=== PATIENT | female | born 1930 | race Caucasian/White ===

== ENCOUNTER 2018-08-06 07:30 | Inpatient (IN) | payer MEDICARE, BC ==
--- NOTE | 2018-08-06 08:24 | EKG REPORT ---
SEVERITY:- ABNORMAL ECG - SINUS RHYTHM LEFT BUNDLE BRANCH BLOCK : Confirmed by: Олег Whalen MD 06-Aug-2018 08:23:39
[2018-08-06 08:51] LABS: ALANINE AMINOTRANSFERASE 32 U/L (9-52); ALBUMIN 3.1 g/dL (3.5-5.0); ALKALINE PHOSPHATASE 141 U/L (38-126); ANION GAP 9 (5-19); ASPARTATE AMINO TRANSFERASE 29 U/L (14-36); BILIRUBIN,DIRECT 0.2 mg/dL (0.0-0.4); BILIRUBIN,TOTAL 0.6 mg/dL (0.2-1.3); BLOOD UREA NITROGEN 12 mg/dL (7-20); CALCIUM 8.5 mg/dL (8.4-10.2); CARBON DIOXIDE 32 mmol/L (22-30); CHLORIDE 96 mmol/L (98-107); GLUCOSE 93 mg/dL (75-110); POTASSIUM 4.4 mmol/L (3.6-5.0); SODIUM 136.8 mmol/L (137-145); TOTAL PROTEIN 5.2 g/dL (6.3-8.2)
[2018-08-06 08:52] LABS: CREATINE KINASE < 20 U/L (30-135)
[2018-08-06 09:02] LABS: CREATINE KINASE MB 0.77 ng/mL (<4.55)
[2018-08-06 09:04] LABS: TROPONIN I 0.092 ng/mL
--- NOTE | 2018-08-06 09:06 | RADIOLOGY REPORT (SQ) ---
EXAM DESCRIPTION: CHEST SINGLE VIEW COMPLETED DATE/TIME: 08/06/2018 8:20 am REASON FOR STUDY: Dyspnea COMPARISON: 2006 EXAM PARAMETERS: NUMBER OF VIEWS: One view. TECHNIQUE: Single frontal radiographic view of the chest acquired. RADIATION DOSE: NA LIMITATIONS: Motion. AP portable. FINDINGS: LUNGS AND PLEURA: PleurX catheter overlying right lower lung. Partial left pneumonectomy. Bilateral airspace disease, right greater than left. Small right pleural effusion. MEDIASTINUM AND HILAR STRUCTURES: No masses. Contour normal. HEART AND VASCULAR STRUCTURES: Cardiomegaly. BONES: No acute findings. HARDWARE: None in the chest. OTHER: No other significant finding. IMPRESSION: Asymmetric edema or pneumonia. PleurX catheter right lung. No pneumothorax. TECHNICAL DOCUMENTATION: JOB ID: [id number] [employer]- All Rights Reserved Reading location - IP/workstation name: [email or web address]
[2018-08-06 09:21] LABS: HEMATOCRIT 24.1 % (36.0-47.0); HEMOGLOBIN 8.4 g/dL (12.0-15.5); MEAN CORPUSCULAR HEMOGLOBIN 31.1 pg (27.0-33.4); MEAN CORPUSCULAR HGB CONC 34.9 g/dL (32.0-36.0); MEAN CORPUSCULAR VOLUME 89 fl (80-97); RED BLOOD COUNT 2.71 10^6/uL (3.72-5.28); RED CELL DISTRIBUTION WIDTH 14.5 % (11.5-14.0); WHITE BLOOD COUNT 10.6 10^3/uL (4.0-10.5)
[2018-08-06 09:41] LABS: ABSOLUTE LYMPHOCYTES# (MANUAL) 1.1 10^3/uL (0.5-4.7); ABSOLUTE MONOCYTES # (MANUAL) 0.5 10^3/uL (0.1-1.4); BAND NEUTROPHILS % (MANUAL) 6 % (3-5); BASOPHILS % (MANUAL) 0 % (0-2); EOSINOPHILS % (MANUAL) 0 % (0-6); LYMPHOCYTES % (MANUAL) 10 % (13-45); METAMYELOCYTES % (MANUAL) 1 % (0); MONOCYTES % (MANUAL) 5 % (3-13); SEGMENTED NEUTROPHILS % (MAN) 78 % (42-78); TOTAL CELLS COUNTED 100
[2018-08-06 09:46] LABS: ANISOCYTOSIS SLIGHT; OVALOCYTES SLIGHT; PLATELET COMMENT DECREASED; POIKILOCYTOSIS SLIGHT; TOXIC GRANULATION 2+
[2018-08-06 09:48] LABS: PLATELET COUNT 18 10^3/uL (150-450)
[2018-08-06 12:18] LABS: APPEARANCE,URINE SLIGHTLY-CLOUDY; BILIRUBIN,URINE NEGATIVE (NEGATIVE); COLOR,URINE YELLOW; GLUCOSE, URINE NEGATIVE (NEGATIVE); KETONES,URINE NEGATIVE (NEGATIVE); LEUKOCYTE ESTERASE,URINE NEGATIVE (NEGATIVE); NITRITE,URINE POSITIVE (NEGATIVE); PROTEIN,URINE 30 mg/dL (NEGATIVE); URINE SPECIFIC GRAVITY 1.016
[2018-08-06] MEDS ORDERED: METHYLPREDNISOLONE INJ 125 MG/2 ML SDV IV ONE (12:19)
[2018-08-06] MEDS ORDERED: LEVOFLOXACIN 750 MG/D5W RTU 750 MG/150 ML RTUPB IV ONE (12:19)
--- NOTE | 2018-08-06 13:31 | PDOC H&P ---
History of Present Illness Admission Date/PCP: MEL GRULLON MD History of Present Illness: DAVID HO is a 88 year old female with PMHx of breast cancer right mastectomy with 3 lymph nodes removed in 1996, history of lung cancer 2009 status post left upper lobe resection, other cancers 2017, CAD status post 1 stent placement, CHF ejection fraction 25%, current pleural effusion, who was recently hospitalized at [facility] for shortness of breath of several month and was found to have recurrent pleural effusion due to metastatic cancer she received Pleurx placement in the right posterior lung and was subsequently discharged to [facility] for rehab week ago. Patient is stating she has been having worsening shortness of breath associated with productive cough for the last week. Her Pleurx still draining but she does not remember how much. She denies any chest pain, nausea, vomiting, diarrhea, constipation, or any urinary symptoms. In ED she was found to have SPO2 of 75% BNP 28,100 UA positive for nitrites and WBC of 10.6 with ANC of 9.0 up from WBC of 0.5, 5 days ago. CXR in ED showed appearance possible pneumonia. Start on Levaquin and steroids on hospital was consulted for admission. Past Medical History Cardiac Medical History: Reports: Hypertension Past Surgical History Past Surgical History: Reports: Mastectomy - Right breast Social History Smoking Status: Unknown if Ever Smoked Family History Family History: None Parental Family History Reviewed: Yes Children Family History Reviewed: Yes Sibling(s) Family History Reviewed.: Yes Medication/Allergy Home Medications: Acetaminophen [Tylenol Extra Strength 500 mg Tablet] 1,000 mg PO Q8HP PRN 08/06 Albuterol Sulfate [Proair HFA Inhalation Aerosol 8.5 gm MDI] 2 puff IH Q4HP PRN 08/06/18 Aspirin [Aspirin 81 mg Chewable Tablet] 81 mg PO QAM 08/06/18 Cholecalciferol (Vitamin D3) [Vitamin D3 1000 Unit Tablet] 1,000 mg PO QAM 08/06/18 Cyanocobalamin (Vitamin B-12) [Vitamin B-12 1000 mcg Tablet] 1,000 mcg PO QAM 08/06/18 Docusate Sodium [Colace 100 mg Capsule] 100 mg PO HSP PRN 08/06/18 Furosemide [Lasix 40 mg Tablet] 40 mg PO QAM 08/06/18 Isosorbide Mononitrate [Imdur 60 mg Tablet.er] 60 mg PO QAM 08/06/18 Lansoprazole [Prevacid] 30 mg PO QAM@0630 08/06/18 Lisinopril [Zestril] 10 mg PO QAM 08/06/18 Metoprolol Tartrate [Lopressor 25 mg Tablet] 25 mg PO Q12 08/06/18 Polyethylene Glycol 3350 [Miralax Powder 17 gm/Packet] 17 gm PO QAM 08/06/18 Vit C/Vit E AC/Lut/Copper/Zinc [Preservision Lutein Softgel] 1 cap PO QAM 08/06/18 Allergies/Adverse Reactions: meperidine HCl [From Demerol] Allergy (Verified 07/16/14 17:13) Penicillins Allergy (Verified 07/16/14 17:13) Review of Systems Review of Systems: As per HPI. Physical Exam Vital Signs: Temp Pulse Resp BP Pulse Ox 97.9 F 97 29 H 135/58 H 95 08/06/18 07:50 08/06/18 07:50 08/06/18 13:01 08/06/18 13:00 08/06/18 13:01 General appearance: PRESENT: no acute distress Head exam: PRESENT: atraumatic, normocephalic Respiratory exam: PRESENT: clear to auscultation rodrigo. ABSENT: rales, rhonchi, wheezes Cardiovascular exam: PRESENT: RRR. ABSENT: diastolic murmur, rubs, systolic murmur GI/Abdominal exam: PRESENT: normal bowel sounds, soft. ABSENT: distended, guarding, mass, organolmegaly, rebound, tenderness Extremities exam: PRESENT: full ROM. ABSENT: calf tenderness, clubbing, pedal edema Neurological exam: PRESENT: alert, awake, oriented to person, oriented to place, oriented to time, oriented to situation, CN II-XII grossly intact. ABSENT: motor sensory deficit Results Laboratory Results: 08/06/18 08:40 08/06/18 07:55 08/06/18 08/06/18 08/06/18 07:55 07:55 08:40 WBC Cancelled 10.6 H RBC Cancelled 2.71 L Hgb Cancelled 8.4 L Hct Cancelled 24.1 L MCV Cancelled 89 MCH Cancelled 31.1 MCHC Cancelled 34.9 RDW Cancelled 14.5 H Plt Count Cancelled 18 L* Seg Neutrophils % Cancelled Not Reportable Lymphocytes % Cancelled Not Reportable Monocytes % Cancelled Not Reportable Eosinophils % Cancelled Not Reportable Basophils % Cancelled Not Reportable Absolute Neutrophils Cancelled Not Reportable Absolute Lymphocytes Cancelled Not Reportable Absolute Monocytes Cancelled Not Reportable Absolute Eosinophils Cancelled Not Reportable Absolute Basophils Cancelled Not Reportable Sodium 136.8 L Potassium 4.4 Chloride 96 L Carbon Dioxide 32 H Anion Gap 9 BUN 12 Creatinine 0.92 Est GFR ( Amer) > 60 Est GFR (Non-Af Amer) 58 L Glucose 93 Lactic Acid Calcium 8.5 Total Bilirubin 0.6 AST 29 ALT 32 Alkaline Phosphatase 141 H Total Protein 5.2 L Albumin 3.1 L Urine Color Urine Appearance Urine pH Ur Specific [place] Urine Protein Urine Glucose (UA) Urine Ketones Urine Blood Urine Nitrite Ur Leukocyte Esterase Urine WBC (Auto) 08/06/18 08/06/18 09:05 11:50 WBC RBC Hgb Hct MCV MCH MCHC RDW Plt Count Seg Neutrophils % Lymphocytes % Monocytes % Eosinophils % Basophils % Absolute Neutrophils Absolute Lymphocytes Absolute Monocytes Absolute Eosinophils Absolute Basophils Sodium Potassium Chloride Carbon Dioxide Anion Gap BUN Creatinine Est GFR ( Amer) Est GFR (Non-Af Amer) Glucose Lactic Acid 0.9 Calcium Total Bilirubin AST ALT Alkaline Phosphatase Total Protein Albumin Urine Color YELLOW Urine Appearance SLIGHTLY-CLOUDY Urine pH 9.0 Ur Specific [place] 1.016 Urine Protein 30 H Urine Glucose (UA) NEGATIVE Urine Ketones NEGATIVE Urine Blood NEGATIVE Urine Nitrite POSITIVE H Ur Leukocyte Esterase NEGATIVE Urine WBC (Auto) 8 08/06/18 08/06/18 08/06/18 07:55 07:55 07:55 Creatine Kinase < 20 L CK-MB (CK-2) 0.77 Troponin I 0.092 NT-Pro-B Natriuret Pep [id number] H Impressions: Chest X-Ray 08/06/18 07:52 IMPRESSION: Asymmetric edema or pneumonia. PleurX catheter right lung. No pneumothorax. Assessment & Plan - Diagnosis (1) Pneumonia Is this a current diagnosis for this admission?: Yes Plan: Healthcare associated/hospital-acquired pneumonia as patient has recent history of hospitalization at [facility] Patient allergic to penicillins. Start on levofloxacin and vancomycin. Sputum culture, blood culture. (2) Recurrent pleural effusion on right Is this a current diagnosis for this admission?: No Plan: Due to metastatic lung disease. Pleurx in place. Will obtain pleural fluid culture. (3) CAD (coronary artery disease) Is this a current diagnosis for this admission?: Yes Plan: Continue statins, beta-blockers, aspirin, JEFF. Outpatient cardiology follow-up. (4) CHF (congestive heart failure) Is this a current diagnosis for this admission?: No Plan: Systolic heart failure. Ejection fraction 25%. No echo available. Monitor volume status, continue Lasix. Beta-blockers and JEFF. Cardiac diet. (5) COPD (chronic obstructive pulmonary disease) Is this a current diagnosis for this admission?: No Plan: IV steroids, duo nebs, long-acting bronchodilators, BiPAP as needed. Supplemental oxygen. (6) Hypertension Is this a current diagnosis for this admission?: No Plan: Normotensive. Restart home meds. Adjust dosage as needed. Outpatient PCP fo llow-up. (7) Back pain Is this a current diagnosis for this admission?: No Plan: History of lumbar spine laminectomy. Restart home meds. PT. Patient pain management and PCP follow-up. (8) Thrombocytopenia Is this a current diagnosis for this admission?: No Plan: Likely secondary to lying multiple metastatic disease. Monitor for any signs of bleeding. Daily CBC. 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 coli. Receiving empiric antibiotics for underlying pneumonia. Follow-up urine culture.
[2018-08-06] MEDS ORDERED: ACETAMINOPHEN 325 MG TABLET PO PRN (13:48)
[2018-08-06] MEDS: IPRATROPIUM/ALBUTEROL 0.5-2.5 MG/3 ML AMPUL NEB SCH ×2 (15:45→19:54)
[2018-08-06] MEDS ORDERED: VANCOMYCIN HCL 1,000 MG in DEXTROSE 5%-WATER 250 ML IV NR (17:15)
[2018-08-06] MEDS ORDERED: HYDRALAZINE HCL INJ/PF 20 MG/1 ML SDV IV PRN (17:48)
[2018-08-06] MEDS: LANSOPRAZOLE 30 MG TAB.RAP.DR PO SCH (18:06)
[2018-08-06] MEDS ORDERED: VANCOMYCIN HCL INJ 1000 MG VIAL IV PRN (18:31)
[2018-08-06] MEDS ORDERED: VANCOMYCIN HCL 1,500 MG in DEXTROSE 5%-WATER 250 ML IV ONE ×2 (19:00→22:00)
[2018-08-06] MEDS ORDERED: VANCOMYCIN HCL INJ 1000 MG VIAL ONE (20:20)
[2018-08-06] MEDS ORDERED: LEVALBUTEROL HCL NEB 0.63 MG/3 ML AMPUL NEB ONE (21:00)
[2018-08-06 21:16] LABS: A TYPE INFLUENZA AG NEGATIVE (NEGATIVE); B INFLUENZA AG NEGATIVE (NEGATIVE)
--- NOTE | 2018-08-06 22:01 | EKG REPORT ---
SEVERITY:- ABNORMAL ECG - SINUS RHYTHM ATRIAL PREMATURE COMPLEX INCOMPLETE LBBB OLD ANTERIOR GA : Confirmed by: Олег Whalen MD 06-Aug-2018 22:00:23
[2018-08-06] MEDS: METHYLPREDNISOLONE INJ 40 MG/1 ML SDV IV SCH (22:24)
[2018-08-06] MEDS: GUAIFENESIN 600 MG TABLET.SA PO SCH (22:24)
[2018-08-06] MEDS: METOPROLOL TARTRATE 25 MG TABLET PO SCH (22:24)
[2018-08-07 05:29] LABS: HEMATOCRIT 23.9 % (36.0-47.0); HEMOGLOBIN 8.2 g/dL (12.0-15.5); MEAN CORPUSCULAR HEMOGLOBIN 30.8 pg (27.0-33.4); MEAN CORPUSCULAR HGB CONC 34.5 g/dL (32.0-36.0); MEAN CORPUSCULAR VOLUME 90 fl (80-97); RED BLOOD COUNT 2.67 10^6/uL (3.72-5.28); RED CELL DISTRIBUTION WIDTH 14.7 % (11.5-14.0); WHITE BLOOD COUNT 12.5 10^3/uL (4.0-10.5)
[2018-08-07 05:55] LABS: ABSOLUTE LYMPHOCYTES# (MANUAL) 0.4 10^3/uL (0.5-4.7); ABSOLUTE MONOCYTES # (MANUAL) 0.6 10^3/uL (0.1-1.4); ABSOLUTE NEUTROPHILS# (MANUAL) 11.5 10^3/uL (1.7-8.2); BAND NEUTROPHILS % (MANUAL) 2 % (3-5); BASOPHILS % (MANUAL) 0 % (0-2); EOSINOPHILS % (MANUAL) 0 % (0-6); LYMPHOCYTES % (MANUAL) 3 % (13-45); MONOCYTES % (MANUAL) 5 % (3-13); SEGMENTED NEUTROPHILS % (MAN) 90 % (42-78); TOTAL CELLS COUNTED 100
[2018-08-07 05:56] LABS: POIKILOCYTOSIS SLIGHT
[2018-08-07 05:57] LABS: OVALOCYTES SLIGHT; PLATELET COMMENT DECREASED
[2018-08-07 06:01] LABS: PLATELET COUNT 19 10^3/uL (150-450)
[2018-08-07] MEDS: LANSOPRAZOLE 30 MG TAB.RAP.DR PO SCH ×2 (06:06→17:30)
[2018-08-07] MEDS: METHYLPREDNISOLONE INJ 40 MG/1 ML SDV IV SCH ×3 (06:06→21:05)
[2018-08-07] MEDS ORDERED: VIT C PO SCH (08:00)
[2018-08-07] MEDS ORDERED: LUT PO SCH (08:00)
[2018-08-07] MEDS ORDERED: VIT E AC PO SCH (08:00)
[2018-08-07] MEDS ORDERED: ZINC PO SCH (08:00)
[2018-08-07] MEDS ORDERED: CHOLECALCIFEROL (D3) 1,000 UNIT TABLET PO SCH (08:00)
[2018-08-07] MEDS ORDERED: COPPER PO SCH (08:00)
[2018-08-07] MEDS ORDERED: [UNRECOGNIZED DRUG - OTHER] PO SCH (08:00)
[2018-08-07] MEDS: LEVALBUTEROL HCL NEB 0.63 MG/3 ML AMPUL NEB SCH ×3 (08:11→20:11)
[2018-08-07] MEDS: ASPIRIN 81 MG TABLET, CHEWABLE PO SCH (08:12)
[2018-08-07] MEDS: FUROSEMIDE 40 MG TABLET PO SCH (08:12)
[2018-08-07] MEDS: LISINOPRIL 10 MG TABLET PO SCH (08:13)
[2018-08-07] MEDS: POLYETHYLENE GLYCOL 3350 POWDER 17 GM/1 PACKET PO SCH (08:13)
[2018-08-07] MEDS: ISOSORBIDE MONONITRATE 60 MG TAB.ER.24H PO SCH (08:16)
[2018-08-07] MEDS: CYANOCOBALAMIN (VITAMIN B-12) 1,000 MCG TABLET PO SCH (08:16)
[2018-08-07] MEDS ORDERED: VANCOMYCIN HCL 0 MG in DEXTROSE 5%-WATER 250 ML IV NR (09:00)
[2018-08-07] MEDS ORDERED: BENZOCAINE/MENTHOL SORE THROAT LOZENGE BUCCAL PRN (09:17)
[2018-08-07] MEDS ORDERED: ENOXAPARIN SODIUM INJ 40 MG/0.4 ML DISP.SYRIN SUBCUT SCH (10:00)
[2018-08-07] MEDS: TIOTROPIUM BROMIDE DPI 5 CAP/KIT (18 MCG/CAP) IH SCH (10:27)
[2018-08-07] MEDS: GUAIFENESIN 600 MG TABLET.SA PO SCH ×2 (10:27→21:06)
[2018-08-07] MEDS: METOPROLOL TARTRATE 25 MG TABLET PO SCH ×2 (10:27→21:06)
[2018-08-07] MEDS: LEVOFLOXACIN 500 MG/D5W RTU 500 MG/100 ML RTUPB IV SCH (11:02)
--- NOTE | 2018-08-07 11:45 | PDOC PROGRESS REPORT ---
Subjective Progress Note for:: 08/07/18 Subjective:: DAVID HO is a 88 year old female with PMHx of breast cancer right mastectomy with 3 lymph nodes removed in 1996, history of lung cancer 2009 status post left upper lobe resection, other cancers 2017, CAD status post 1 stent placement, CHF ejection fraction 25%, current pleural effusion, who was recently hospitalized at [facility] for shortness of breath of several month and was found to have recurrent pleural effusion due to metastatic cancer she received Pleurx placement in the right posterior lung and was subsequently discharged to [facility] for rehab week ago. Patient is stating she has been having worsening shortness of breath associated with productive cough for the last week. Her Pleurx still draining but she does not remember how much. She denies any chest pain, nausea, vomiting, diarrhea, constipation, or any urinary symptoms. In ED she was found to have SPO2 of 75% BNP 28,100 UA positive for nitrites and WBC of 10.6 with ANC of 9.0 up from WBC of 0.5, 5 days ago. CXR in ED showed appearance possible pneumonia. Start on Levaquin and steroids on hospital was consulted for admission. 08/07/2018. No acute events overnight. Reason For Visit: PNEUMONIA Physical Exam Vital Signs: Temp Pulse Resp BP Pulse Ox 97.4 F 83 16 113/48 L 96 08/07/18 07:50 08/07/18 08:11 08/07/18 08:11 08/07/18 07:50 08/07/18 08:11 Intake & Output 08/06/18 08/07/18 08/08/18 06:59 06:59 06:59 Intake Total 666 Output Total 300 Balance 366 Weight 81.7 kg General appearance: PRESENT: no acute distress, well-developed, well-nourished Head exam: PRESENT: atraumatic, normocephalic Respiratory exam: PRESENT: decreased breath sounds - RLL, symmetrical. ABSENT: rales, rhonchi, wheezes Cardiovascular exam: PRESENT: RRR. ABSENT: diastolic murmur, rubs, systolic murmur Neurological exam: PRESENT: alert, awake, oriented to person, oriented to place, oriented to time, oriented to situation, CN II-XII grossly intact. ABSENT: motor sensory deficit Results Laboratory Results: 08/07/18 05:10 08/06/18 07:55 08/06/18 08/07/18 11:50 05:10 WBC 12.5 H RBC 2.67 L Hgb 8.2 L Hct 23.9 L MCV 90 MCH 30.8 MCHC 34.5 RDW 14.7 H Plt Count 19 L* Seg Neutrophils % Not Reportable Lymphocytes % Not Reportable Monocytes % Not Reportable Eosinophils % Not Reportable Basophils % Not Reportable Absolute Neutrophils Not Reportable Absolute Lymphocytes Not Reportable Absolute Monocytes Not Reportable Absolute Eosinophils Not Reportable Absolute Basophils Not Reportable Urine Color YELLOW Urine Appearance SLIGHTLY-CLOUDY Urine pH 9.0 Ur Specific [place] 1.016 Urine Protein 30 H Urine Glucose (UA) NEGATIVE Urine Ketones NEGATIVE Urine Blood NEGATIVE Urine Nitrite POSITIVE H Ur Leukocyte Esterase NEGATIVE Urine WBC (Auto) 8 08/06/18 08/06/18 08/06/18 07:55 07:55 07:55 Creatine Kinase < 20 L CK-MB (CK-2) 0.77 Troponin I 0.092 NT-Pro-B Natriuret Pep [id number] H Impressions: Chest X-Ray 08/06/18 07:52 IMPRESSION: Asymmetric edema or pneumonia. PleurX catheter right lung. No pneumothorax. Assessment & Plan - Diagnosis (1) Pneumonia Is this a current diagnosis for this admission?: Yes Plan: Healthcare associated/hospital-acquired pneumonia as patient has recent history of hospitalization at [facility] Patient allergic to penicillins. Day 2 levofloxacin and vancomycin. Sputum culture, blood culture prelim no growth (2) Recurrent pleural effusion on right Is this a current diagnosis for this admission?: No Plan: Due to metastatic lung disease. Pleurx in place. Will obtain pleural fluid culture. Drain twice a week to gravity. Pleurx Care (3) UTI (urinary tract infection) Is this a current diagnosis for this admission?: Yes Plan: Likely E. coli. Receiving empiric antibiotics for underlying pneumonia. Cx positive for GNR. Pending susceptibility (4) CAD (coronary artery disease) Is this a current diagnosis for this admission?: Yes Plan: Continue statins, beta-blockers, aspirin, JEFF. Outpatient cardiology follow-up. (5) CHF (congestive heart failure) Is this a current diagnosis for this admission?: No Plan: Systolic heart failure. Ejection fraction 25%. No echo available. Monitor volume status, continue Lasix. Beta-blockers and JEFF. Cardiac diet. (6) COPD (chronic obstructive pulmonary disease) Is this a current diagnosis for this admission?: No Plan: IV steroids, duo nebs, long-acting bronchodilators, BiPAP as needed. Supplemental oxygen. (7) Hypertension Is this a current diagnosis for this admission?: No Plan: Normotensive. Restart home meds. Adjust dosage as needed. Outpatient PCP follow-up. (8) Back pain Is this a current diagnosis for this admission?: No Plan: History of lumbar spine laminectomy. Restart home meds. PT. Patient pain management and PCP follow-up. (9) Thrombocytopenia Is this a current diagnosis for this admission?: No Plan: Likely secondary to lying multiple metastatic disease. Monitor for any signs of bleeding. Daily CBC. (10) Squamous cell carcinoma of right lung Is this a current diagnosis for this admission?: No Plan: H/O consulted (11) History of right breast cancer Is this a current diagnosis for this admission?: No Plan: H/O consulted (12) History of bladder cancer Is this a current diagnosis for this admission?: No Plan: H/O consulted
[2018-08-07] MEDS: VANCOMYCIN HCL 750 MG in DEXTROSE 5%-WATER 250 ML IV SCH (17:30)
[2018-08-08] MEDS: VANCOMYCIN HCL 750 MG in DEXTROSE 5%-WATER 250 ML IV SCH ×2 (06:06→17:14)
[2018-08-08] MEDS: METHYLPREDNISOLONE INJ 40 MG/1 ML SDV IV SCH ×3 (06:06→22:32)
[2018-08-08] MEDS: LANSOPRAZOLE 30 MG TAB.RAP.DR PO SCH ×2 (06:07→17:14)
[2018-08-08] MEDS: LEVALBUTEROL HCL NEB 0.63 MG/3 ML AMPUL NEB SCH ×3 (08:19→20:24)
[2018-08-08 08:25] LABS: HEMATOCRIT 26.1 % (36.0-47.0); HEMOGLOBIN 8.9 g/dL (12.0-15.5); MEAN CORPUSCULAR HEMOGLOBIN 30.1 pg (27.0-33.4); MEAN CORPUSCULAR HGB CONC 33.9 g/dL (32.0-36.0); MEAN CORPUSCULAR VOLUME 89 fl (80-97); RED BLOOD COUNT 2.94 10^6/uL (3.72-5.28); RED CELL DISTRIBUTION WIDTH 14.6 % (11.5-14.0)
--- NOTE | 2018-08-08 08:45 | PDOC CONSULTATION ---
Consultation Consult Date: 08/08/18 Attending physician:: ABDIEL CASTLE Consult reason:: Extensive stage small cell lung cancer History of Present Illness Admission Date/PCP: 08/06/18 13:05 MEL GRULLON MD Patient complains of: Shortness of breath History of Present Illness: DAVID HO is a 88 year old female with known history of extensive stage small cell lung cancer. She previously had history of 2 other cancers. She had breast cancer in 1997, a few years after that she had left non-small cell lung cancer, status post lobectomy. Recently she had the emergence of a right pleural effusion, ultimately after extensive workup she was diagnosed with exte nsive stage small cell lung cancer. She received 3 cycles of chemotherapy thus far the last cycle was about 2 weeks ago. Unfortunately with each cycle she has been getting weaker and weaker, and over the last 2 weeks has been bedridden. She had a long discussion with her family, does not feel like she could tolerate further chemotherapy. So they were interested in discussion about hospice. We had a long discussion about that, we spent greater than 70 minutes in discussion. Past Medical History Cardiac Medical History: Reports: Hypertension Malignancy Medical History: Reports: Breast Cancer, Lung Cancer - Currently with extensive stage small cell lung cancer Psychiatric Medical History: Denies: Depression Past Surgical History Past Surgical History: Reports: Mastectomy - Right breast, Other - Left lung surgery, Pleurx catheter placement, thoracentesis Social History Information Source: Patient Smoking Status: Former Smoker Cigarettes Packs Per Day: 1 Number of Years Smokin Frequency of Alcohol Use: None Hx Recreational Drug Use: No Drugs: None Hx Prescription Drug Abuse: No - Advance Directive Resuscitation Status: Do Not Resuscitate Family History Family History: None Parental Family History Reviewed: Yes Children Family History Reviewed: Yes Sibling(s) Family History Reviewed.: Yes Medication/Allergy Home Medications: Acetaminophen [Tylenol Extra Strength 500 mg Tablet] 1,000 mg PO Q8HP PRN 08/06/18 Albuterol Sulfate [Proair HFA Inhalation Aerosol 8.5 gm MDI] 2 puff IH Q4HP PRN 08/06/18 Aspirin [Aspirin 81 mg Chewable Tablet] 81 mg PO QAM 08/06/18 Cholecalciferol (Vitamin D3) [Vitamin D3 1000 Unit Tablet] 1,000 mg PO QAM 08/06/18 Cyanocobalamin (Vitamin B-12) [Vitamin B-12 1000 mcg Tablet] 1,000 mcg PO QAM 08/06/18 Docusate Sodium [Colace 100 mg Capsule] 100 mg PO HSP PRN 08/06/18 Furosemide [Lasix 40 mg Tablet] 40 mg PO QAM 08/06/18 Isosorbide Mononitrate [Imdur 60 mg Tablet.er] 60 mg PO QAM 08/06/18 Lansoprazole [Prevacid] 30 mg PO QAM@0630 08/06/18 Lisinopril [Zestril] 10 mg PO QAM 08/06/18 Metoprolol Tartrate [Lopressor 25 mg Tablet] 25 mg PO Q12 08/06/18 Polyethylene Glycol 3350 [Miralax Powder 17 gm/Packet] 17 gm PO QAM 08/06/18 Vit C/Vit E AC/Lut/Copper/Zinc [Preservision Lutein Softgel] 1 cap PO QA 08/06/18 Allergies/Adverse Reactions: meperidine HCl [From Demerol] Allergy (Verified 07/16/14 17:13) Penicillins Allergy (Verified 07/16/14 17:13) Review of Systems Constitutional: ABSENT: chills, fever(s), headache(s), weight gain, weight loss Eyes: ABSENT: visual disturbances Ears: ABSENT: hearing changes Cardiovascular: ABSENT: chest pain, dyspnea on exertion, edema, orthropnea, palpitations Respiratory: ABSENT: cough, hemoptysis Gastrointestinal: ABSENT: abdominal pain, constipation, diarrhea, hematemesis, hematochezia, nausea, vomiting Genitourinary: ABSENT: dysuria, hematuria Musculoskeletal: ABSENT: joint swelling Integumentary: ABSENT: rash, wounds Neurological: ABSENT: abnormal gait, abnormal speech, confusion, dizziness, focal weakness, syncope Psychiatric: ABSENT: anxiety, depression, homidical ideation, suicidal ideation Endocrine: ABSENT: cold intolerance, heat intolerance, polydipsia, polyuria Hematologic/Lymphatic: ABSENT: easy bleeding, easy bruising Physical Exam Vital Signs: Temp Pulse Resp BP Pulse Ox 97.9 F 72 16 115/56 L 94 08/08/18 08:00 08/08/18 08:19 08/08/18 08:19 08/08/18 08:00 08/08/18 08:19 Intake & Output 08/07/18 08/08/18 08/09/18 06:59 06:59 06:59 Intake Total 666 1190 250 Output Total 300 500 Balance 366 690 250 Weight 81.7 kg General appearance: PRESENT: no acute distress, well-developed, well-nourished Head exam: PRESENT: atraumatic, normocephalic Eye exam: PRESENT: conjunctiva pink, EOMI, PERRLA. ABSENT: scleral icterus Ear exam: PRESENT: normal external ear exam Mouth exam: PRESENT: moist, tongue midline Neck exam: ABSENT: carotid bruit, JVD, lymphadenopathy, thyromegaly Respiratory exam: PRESENT: clear to auscultation rodrigo. ABSENT: rales, rhonchi, wheezes Cardiovascular exam: PRESENT: RRR. ABSENT: diastolic murmur, rubs, systolic murmur Pulses: PRESENT: normal dorsalis pedis pul Vascular exam: PRESENT: normal capillary refill GI/Abdominal exam: PRESENT: normal bowel sounds, soft. ABSENT: distended, guarding, mass, organolmegaly, rebound, tenderness Rectal exam: PRESENT: deferred Extremities exam: PRESENT: full ROM. ABSENT: calf tenderness, clubbing, pedal edema Neurological exam: PRESENT: alert, awake, oriented to person, oriented to place, oriented to time, oriented to situation, CN II-XII grossly intact. ABSENT: motor sensory deficit Psychiatric exam: PRESENT: appropriate affect, normal mood. ABSENT: homicidal ideation, suicidal ideation Skin exam: PRESENT: dry, intact, warm. ABSENT: cyanosis, rash Results Laboratory Results: 08/06/18 07:55 08/06/18 08/06/18 08/06/18 07:55 07:55 07:55 Creatine Kinase < 20 L CK-MB (CK-2) 0.77 Troponin I 0.092 NT-Pro-B Natriuret Pep [id number] H Impressions: Chest X-Ray 08/06/18 07:52 IMPRESSION: Asymmetric edema or pneumonia. PleurX catheter right lung. No pneumothorax. 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 Agree that patient is no longer a good candidate for consideration of chemotherapy. Discussed hospice with patient. Plan to proceed with hospice referral. Discussed with patient and family. Everybody in agreement with discussion with hospice. Will revisit patient tomorrow to see what they have decided. - Time Time Spent: Greater than 70 Minutes - Inpatient Certification Based on my medical assessment, after consideration of the patient's c omorbidities, presenting symptoms, or acuity I expect that the services needed warrant INPATIENT care.: Yes I certify that my determination is in accordance with my understanding of Medicare's requirements for reasonable and necessary INPATIENT services [42 CFR 412.3e].: Yes
[2018-08-08 09:04] LABS: PLATELET COUNT 49 10^3/uL (150-450)
[2018-08-08 09:12] LABS: ABSOLUTE LYMPHOCYTES# (MANUAL) 1.4 10^3/uL (0.5-4.7); ABSOLUTE MONOCYTES # (MANUAL) 1.7 10^3/uL (0.1-1.4); ABSOLUTE NEUTROPHILS# (MANUAL) 20.9 10^3/uL (1.7-8.2); BAND NEUTROPHILS % (MANUAL) 6 % (3-5); BASOPHILS % (MANUAL) 0 % (0-2); EOSINOPHILS % (MANUAL) 0 % (0-6); LYMPHOCYTES % (MANUAL) 5 % (13-45); METAMYELOCYTES % (MANUAL) 2 % (0); MONOCYTES % (MANUAL) 7 % (3-13); SEGMENTED NEUTROPHILS % (MAN) 79 % (42-78); TOTAL CELLS COUNTED 100
[2018-08-08 09:14] LABS: ANISOCYTOSIS SLIGHT; OVALOCYTES 1+; PLATELET COMMENT DECREASED; POIKILOCYTOSIS 1+; POLYCHROMASIA SLIGHT; TOXIC GRANULATION 2+; TOXIC VACUOLATION PRESENT
[2018-08-08] MEDS: METOPROLOL TARTRATE 25 MG TABLET PO SCH ×2 (09:21→22:31)
[2018-08-08] MEDS: LEVOFLOXACIN 500 MG/D5W RTU 500 MG/100 ML RTUPB IV SCH (09:21)
[2018-08-08] MEDS: FUROSEMIDE 40 MG TABLET PO SCH (09:21)
[2018-08-08] MEDS: ASPIRIN 81 MG TABLET, CHEWABLE PO SCH (09:21)
[2018-08-08] MEDS: LISINOPRIL 10 MG TABLET PO SCH (09:21)
[2018-08-08] MEDS: CYANOCOBALAMIN (VITAMIN B-12) 1,000 MCG TABLET PO SCH (09:21)
[2018-08-08] MEDS: POLYETHYLENE GLYCOL 3350 POWDER 17 GM/1 PACKET PO SCH (09:21)
[2018-08-08] MEDS: ISOSORBIDE MONONITRATE 60 MG TAB.ER.24H PO SCH (09:21)
[2018-08-08] MEDS: GUAIFENESIN 600 MG TABLET.SA PO SCH ×2 (09:22→22:32)
[2018-08-08] MEDS: TIOTROPIUM BROMIDE DPI 5 CAP/KIT (18 MCG/CAP) IH SCH (09:22)
[2018-08-08 11:40] LABS: PATH REVIEW PATHOLOGIST REVIEWED
[2018-08-08 12:04] LABS: ALANINE AMINOTRANSFERASE 17 U/L (9-52); ALBUMIN 2.7 g/dL (3.5-5.0); ALKALINE PHOSPHATASE 115 U/L (38-126); ANION GAP 9 (5-19); ASPARTATE AMINO TRANSFERASE 24 U/L (14-36); BILIRUBIN,DIRECT 0.4 mg/dL (0.0-0.4); BILIRUBIN,TOTAL 0.5 mg/dL (0.2-1.3); BLOOD UREA NITROGEN 19 mg/dL (7-20); CALCIUM 8.3 mg/dL (8.4-10.2); CARBON DIOXIDE 29 mmol/L (22-30); CHLORIDE 95 mmol/L (98-107); GLUCOSE 146 mg/dL (75-110); POTASSIUM 4.5 mmol/L (3.6-5.0); SODIUM 132.6 mmol/L (137-145); TOTAL PROTEIN 4.9 g/dL (6.3-8.2)
--- NOTE | 2018-08-08 13:21 | PDOC PROGRESS REPORT ---
Subjective Progress Note for:: 08/08/18 Subjective:: DAVID HO is a 88 year old female with PMHx of breast cancer right mastectomy with 3 lymph nodes removed in 1996, history of lung cancer 2009 status post left upper lobe resection, other cancers 2017, CAD status post 1 stent placement, CHF ejection fraction 25%, current pleural effusion, who was recently hospitalized at [facility] for shortness of breath of several month and was found to have recurrent pleural effusion due to metastatic cancer she received Pleurx placement in the right posterior lung and was subsequently discharged to [facility] for rehab week ago. Patient is stating she has been having worsening shortness of breath associated with productive cough for the last week. Her Pleurx still draining but she does not remember how much. She denies any chest pain, nausea, vomiting, diarrhea, constipation, or any urinary symptoms. In ED she was found to have SPO2 of 75% BNP 28,100 UA positive for nitrites and WBC of 10.6 with ANC of 9.0 up from WBC of 0.5, 5 days ago. CXR in ED showed appearance possible pneumonia. Start on Levaquin and steroids on hospital was consulted for admission. 08/08/2018. No acute events overnight. Patient stating that she is feeling better than yesterday cough has been improving. Was able to get some sleep. Denies any fever, chills, nausea, vomiting, diarrhea, constipation or any urinary symptoms. She has had a conversation with Dr. Rai oncologist here at [facility] and is to transition her to hospice. She wants to talk to her oncologist at [facility] before making final decision. Reason For Visit: PNEUMONIA Physical Exam Vital Signs: Temp Pulse Resp BP Pulse Ox 97.5 F 79 20 94/36 L 96 08/08/18 11:01 08/08/18 11:01 08/08/18 11:01 08/08/18 12:18 08/08/18 11:01 Intake & Output 08/07/18 08/08/18 08/09/18 06:59 06:59 06:59 Intake Total 666 1190 823 Output Total 300 500 500 Balance 366 690 323 Weight 81.7 kg General appearance: PRESENT: no acute distress, well-developed, well-nourished Head exam: PRESENT: atraumatic, normocephalic Respiratory exam: PRESENT: crackles - Right lower lobe. ABSENT: rales, rhonchi, wheezes Cardiovascular exam: PRESENT: RRR. ABSENT: diastolic murmur, rubs, systolic murmur GI/Abdominal exam: PRESENT: normal bowel sounds, soft. ABSENT: distended, guarding, mass, organolmegaly, rebound, tenderness Neurological exam: PRESENT: alert, awake, oriented to person, oriented to place, oriented to time, oriented to situation, CN II-XII grossly intact. ABSENT: motor sensory deficit Results Laboratory Results: 08/08/18 07:53 08/08/18 11:19 08/08/18 08/08/18 07:53 11:19 WBC 24.0 H RBC 2.94 L Hgb 8.9 L Hct 26.1 L MCV 89 MCH 30.1 MCHC 33.9 RDW 14.6 H Plt Count 49 L D Seg Neutrophils % Not Reportable Lymphocytes % Not Reportable Monocytes % Not Reportable Eosinophils % Not Reportable Basophils % Not Reportable Absolute Neutrophils Not Reportable Absolute Lymphocytes Not Reportable Absolute Monocytes Not Reportable Absolute Eosinophils Not Reportable Absolute Basophils Not Reportable Sodium 132.6 L Potassium 4.5 Chloride 95 L Carbon Dioxide 29 Anion Gap 9 BUN 19 Creatinine 1.06 Est GFR ( Amer) 59 L Est GFR (Non-Af Amer) 49 L Glucose 146 H Calcium 8.3 L Magnesium 1.7 Total Bilirubin 0.5 AST 24 ALT 17 Alkaline Phosphatase 115 Total Protein 4.9 L Albumin 2.7 L 08/06/18 11:50 Clean Catch Midstream Urine Culture - Final Klebsiella Oxytoca Pseudomonas Aeruginosa 08/06/18 20:42 Throat Throat Culture - Final NORMAL BALTA 08/06/18 08/06/18 08/06/18 07:55 07:55 07:55 Creatine Kinase < 20 L CK-MB (CK-2) 0.77 Troponin I 0.092 NT-Pro-B Natriuret Pep 85294 H Impressions: Chest X-Ray 08/06/18 07:52 IMPRESSION: Asymmetric edema or pneumonia. PleurX catheter right lung. No pneumothorax. Assessment & Plan - Diagnosis (1) Pneumonia Is this a current diagnosis for this admission?: Yes Plan: Healthcare associated/hospital-acquired pneumonia as patient has recent history of hospitalization at [facility] Patient allergic to penicillins. Day 3 levofloxacin and vancomycin. Worsening leukocytosis with bandemia. Afebrile. Sputum and blood culture no growth so far. (2) Recurrent pleural effusion on right Is this a current diagnosis for this admission?: No Plan: Due to metastatic lung disease. Pleurx in place. Will obtain pleural fluid culture. Drain twice a week to gravity. Pleurx Care (3) UTI (urinary tract infection) Is this a current diagnosis for this admission?: Yes Plan: Due to Pseudomonas and Klebsiella. Pseudomonas resistant to levofloxacin. Start meropenem. (4) CAD (coronary artery disease) Is this a current diagnosis for this admission?: Yes Plan: Continue statins, beta-blockers, aspirin, JEFF. Outpatient cardiology follow-up. (5) CHF (congestive heart failure) Is this a current diagnosis for this admission?: No Plan: Systolic heart failure. Ejection fraction 25%. No echo available. Monitor volume status, continue Lasix. Beta-blockers and JEFF. Cardiac diet. (6) COPD (chronic obstructive pulmonary disease) Is this a current diagnosis for this admission?: No Plan: IV steroids, duo nebs, long-acting bronchodilators, BiPAP as needed. Supplemental oxygen. (7) Hypertension Is this a current diagnosis for this admission?: No Plan: Hold lisinopril due to hypotension. Restart meds when appropriate adjust as needed. Monitor vitals. Outpatient PCP follow-up. (8) Back pain Is this a current diagnosis for this admission?: No Plan: History of lumbar spine laminectomy. Restart home meds. PT. Patient pain management and PCP follow-up. (9) Thrombocytopenia Is this a current diagnosis for this admission?: No Plan: Improving. Likely secondary to lying multiple metastatic disease. Monitor for any signs of bleeding. Daily CBC. 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 Pending transfer to hospice. (11) History of right breast cancer Is this a current diagnosis for this admission?: No Plan: H/O consulted (12) History of bladder cancer Is this a current diagnosis for this admission?: No Plan: H/O consulted
[2018-08-08] MEDS: MEROPENEM 500 MG in NORMAL SALINE 50 ML IV SCH ×2 (14:55→22:32)
[2018-08-09] MEDS: MEROPENEM 500 MG in NORMAL SALINE 50 ML IV SCH ×3 (05:39→22:43)
[2018-08-09] MEDS: METHYLPREDNISOLONE INJ 40 MG/1 ML SDV IV SCH ×3 (05:39→22:43)
[2018-08-09] MEDS: LANSOPRAZOLE 30 MG TAB.RAP.DR PO SCH ×2 (05:40→16:58)
[2018-08-09] MEDS: VANCOMYCIN HCL 750 MG in DEXTROSE 5%-WATER 250 ML IV SCH ×2 (05:40→16:59)
[2018-08-09] MEDS: LEVALBUTEROL HCL NEB 0.63 MG/3 ML AMPUL NEB SCH ×3 (07:47→19:55)
[2018-08-09 07:57] LABS: HEMATOCRIT 26.6 % (36.0-47.0); MEAN CORPUSCULAR HEMOGLOBIN 29.6 pg (27.0-33.4); MEAN CORPUSCULAR HGB CONC 33.7 g/dL (32.0-36.0); MEAN CORPUSCULAR VOLUME 88 fl (80-97); RED BLOOD COUNT 3.03 10^6/uL (3.72-5.28); RED CELL DISTRIBUTION WIDTH 14.2 % (11.5-14.0)
[2018-08-09 08:05] LABS: ALANINE AMINOTRANSFERASE 27 U/L (9-52); ALBUMIN 2.9 g/dL (3.5-5.0); ALKALINE PHOSPHATASE 152 U/L (38-126); ANION GAP 8 (5-19); ASPARTATE AMINO TRANSFERASE 30 U/L (14-36); BILIRUBIN,DIRECT 0.2 mg/dL (0.0-0.4); BILIRUBIN,TOTAL 0.4 mg/dL (0.2-1.3); BLOOD UREA NITROGEN 23 mg/dL (7-20); CALCIUM 8.8 mg/dL (8.4-10.2); CARBON DIOXIDE 31 mmol/L (22-30); CHLORIDE 96 mmol/L (98-107); GLUCOSE 103 mg/dL (75-110); POTASSIUM 4.4 mmol/L (3.6-5.0); SODIUM 134.7 mmol/L (137-145); TOTAL PROTEIN 5.1 g/dL (6.3-8.2)
[2018-08-09 08:10] LABS: VANCOMYCIN,TROUGH 18.7 ug/mL (5.0-20.0)
--- NOTE | 2018-08-09 08:12 | PDOC PROGRESS REPORT ---
Subjective Progress Note for:: 08/09/18 Subjective:: Had long discussion with patient this morning, she spoke with her oncologist, Dr. Perla,Who feels that she should see him before decision on next step of care. So she would like to ultimately be discharged to see him as an outpatient. Reason For Visit: PNEUMONIA Physical Exam Vital Signs: Temp Pulse Resp BP Pulse Ox 97.8 F 91 19 126/50 H 98 08/09/18 03:18 08/09/18 07:47 08/09/18 07:47 08/09/18 03:18 08/09/18 07:47 Intake & Output 08/08/18 08/09/18 08/10/18 06:59 06:59 06:59 Intake Total 1190 1383 250 Output Total 500 900 Balance 690 483 250 General appearance: PRESENT: no acute distress, well-developed, well-nourished Head exam: PRESENT: atraumatic, normocephalic Eye exam: PRESENT: conjunctiva pink, EOMI, PERRLA. ABSENT: scleral icterus Ear exam: PRESENT: normal external ear exam Mouth exam: PRESENT: moist, tongue midline Neck exam: ABSENT: carotid bruit, JVD, lymphadenopathy, thyromegaly Respiratory exam: PRESENT: clear to auscultation rodrigo. ABSENT: rales, rhonchi, wheezes Cardiovascular exam: PRESENT: RRR. ABSENT: diastolic murmur, rubs, systolic murmur Pulses: PRESENT: normal dorsalis pedis pul Vascular exam: PRESENT: normal capillary refill GI/Abdominal exam: PRESENT: normal bowel sounds, soft. ABSENT: distended, guarding, mass, organolmegaly, rebound, tenderness Rectal exam: PRESENT: deferred Extremities exam: PRESENT: full ROM. ABSENT: calf tenderness, clubbing, pedal edema Neurological exam: PRESENT: alert, awake, oriented to person, oriented to place, oriented to time, oriented to situation, CN II-XII grossly intact. ABSENT: motor sensory deficit Psychiatric exam: PRESENT: appropriate affect, normal mood. ABSENT: homicidal ideation, suicidal ideation Skin exam: PRESENT: dry, intact, warm. ABSENT: cyanosis, rash Results Laboratory Results: 08/08/18 08/08/18 07:53 11:19 WBC 24.0 H RBC 2.94 L Hgb 8.9 L Hct 26.1 L MCV 89 MCH 30.1 MCHC 33.9 RDW 14.6 H Plt Count 49 L D Seg Neutrophils % Not Reportable Lymphocytes % Not Reportable Monocytes % Not Reportable Eosinophils % Not Reportable Basophils % Not Reportable Absolute Neutrophils Not Reportable Absolute Lymphocytes Not Reportable Absolute Monocytes Not Reportable Absolute Eosinophils Not Reportable Absolute Basophils Not Reportable Sodium 132.6 L Potassium 4.5 Chloride 95 L Carbon Dioxide 29 Anion Gap 9 BUN 19 Creatinine 1.06 Est GFR ( Amer) 59 L Est GFR (Non-Af Amer) 49 L Glucose 146 H Calcium 8.3 L Magnesium 1.7 Total Bilirubin 0.5 AST 24 ALT 17 Alkaline Phosphatase 115 Total Protein 4.9 L Albumin 2.7 L 08/06/18 11:50 Clean Catch Midstream Urine Culture - Final Klebsiella Oxytoca Pseudomonas Aeruginosa 08/06/18 20:42 Throat Throat Culture - Final NORMAL BALTA 08/06/18 08/06/18 08/06/18 07:55 07:55 07:55 Creatine Kinase < 20 L CK-MB (CK-2) 0.77 Troponin I 0.092 NT-Pro-B Natriuret Pep 12006 H Impressions: Chest X-Ray 08/06/18 07:52 IMPRESSION: Asymmetric edema or pneumonia. PleurX catheter right lung. No pneumothorax. Assessment & Plan - Diagnosis (1) Small cell lung cancer, right lower lobe Is this a current diagnosis for this admission?: Yes Plan: I believe she is not qualified for further treatment, I believe she would be best served by hospice but she has to decide that with her primary oncologist. Today spent 40 minutes in discussion with the patient and family friend who is at bedside. We will be available for further consultation and assistance when they would like us to be involved. - Time Time Spent with patient: 35 or more minutes
[2018-08-09 08:24] LABS: PLATELET COUNT 56 10^3/uL (150-450)
[2018-08-09 08:26] LABS: ABSOLUTE LYMPHOCYTES# (MANUAL) 1.3 10^3/uL (0.5-4.7); ABSOLUTE NEUTROPHILS# (MANUAL) 29.6 10^3/uL (1.7-8.2); BAND NEUTROPHILS % (MANUAL) 7 % (3-5); BASOPHILS % (MANUAL) 0 % (0-2); EOSINOPHILS % (MANUAL) 0 % (0-6); LYMPHOCYTES % (MANUAL) 4 % (13-45); METAMYELOCYTES % (MANUAL) 2 % (0); MONOCYTES % (MANUAL) 3 % (3-13); SEGMENTED NEUTROPHILS % (MAN) 82 % (42-78); TOTAL CELLS COUNTED 100
[2018-08-09 08:29] LABS: ANISOCYTOSIS SLIGHT; MYELOCYTES % (MANUAL) 2 % (0); OVALOCYTES 1+; PLATELET COMMENT DECREASED; POIKILOCYTOSIS 1+; TOXIC GRANULATION 2+; TOXIC VACUOLATION PRESENT
[2018-08-09 08:30] LABS: WHITE BLOOD COUNT 31.8 10^3/uL (4.0-10.5)
[2018-08-09] MEDS: FUROSEMIDE 40 MG TABLET PO SCH (09:44)
[2018-08-09] MEDS: CYANOCOBALAMIN (VITAMIN B-12) 1,000 MCG TABLET PO SCH (09:44)
[2018-08-09] MEDS: METOPROLOL TARTRATE 25 MG TABLET PO SCH ×2 (09:44→21:12)
[2018-08-09] MEDS: GUAIFENESIN 600 MG TABLET.SA PO SCH ×2 (09:44→21:12)
[2018-08-09] MEDS: ISOSORBIDE MONONITRATE 60 MG TAB.ER.24H PO SCH (09:44)
[2018-08-09] MEDS: TIOTROPIUM BROMIDE DPI 5 CAP/KIT (18 MCG/CAP) IH SCH (09:44)
[2018-08-09] MEDS: ASPIRIN 81 MG TABLET, CHEWABLE PO SCH (09:44)
[2018-08-09] MEDS: POLYETHYLENE GLYCOL 3350 POWDER 17 GM/1 PACKET PO SCH (09:46)
[2018-08-09 11:04] LABS: PATH REVIEW PATHOLOGIST REVIEWED
--- NOTE | 2018-08-09 16:01 | PDOC PROGRESS REPORT ---
Subjective Progress Note for:: 08/09/18 Subjective:: Patient is new to me. This is a very pleasant 88 years old female patient with multiple comorbidities including coronary artery disease, CHF with ejection fraction of 25%, COPD and history of multiple cancers including breast bladder and recently also she has extensive stage small cell lung CA and she has been on chemotherapy. She is brought with chief complaint of shortness of breath is. Patient diagnosed with pneumonia and she is currently on potent antibiotics namely vancomycin and meropenem which has been started by the previous attending physician. Patient has also recurrent pleural effusion for which Pleurx has been placed and it is draining. Her primary oncologist at [facility]. Patient is not able to take her scheduled chemo because of her current condition. Reason For Visit: PNEUMONIA Physical Exam Vital Signs: Temp Pulse Resp BP Pulse Ox 98.0 F 80 20 128/62 H 93 08/09/18 08:05 08/09/18 14:00 08/09/18 13:11 08/09/18 08:05 08/09/18 13:11 Intake & Output 08/08/18 08/09/18 08/10/18 06:59 06:59 06:59 Intake Total 1190 1383 820 Output Total 500 900 300 Balance 690 483 520 General appearance: PRESENT: mild distress Head exam: PRESENT: atraumatic Eye exam: PRESENT: conjunctiva pink Neck exam: ABSENT: carotid bruit, JVD, lymphadenopathy, thyromegaly Respiratory exam: PRESENT: crackles, decreased breath sounds, rhonchi - Bilateral GI/Abdominal exam: PRESENT: normal bowel sounds, soft. ABSENT: distended, guarding, mass, organolmegaly, rebound, tenderness Neurological exam: PRESENT: alert, awake, oriented to time, oriented to situation Results Laboratory Results: 08/09/18 06:56 08/09/18 06:56 08/09/18 08/09/18 06:56 06:56 WBC 31.8 H* RBC 3.03 L Hgb 9.0 L Hct 26.6 L MCV 88 MCH 29.6 MCHC 33.7 RDW 14.2 H Plt Count 56 L Seg Neutrophils % Not Reportable Lymphocytes % Not Reportable Monocytes % Not Reportable Eosinophils % Not Reportable Basophils % Not Reportable Absolute Neutrophils Not Reportable Absolute Lymphocytes Not Reportable Absolute Monocytes Not Reportable Absolute Eosinophils Not Reportable Absolute Basophils Not Reportable Sodium 134.7 L Potassium 4.4 Chloride 96 L Carbon Dioxide 31 H Anion Gap 8 BUN 23 H Creatinine 1.17 Est GFR ( Amer) 53 L Est GFR (Non-Af Amer) 44 L Glucose 103 Calcium 8.8 Magnesium 1.9 Total Bilirubin 0.4 AST 30 ALT 27 Alkaline Phosphatase 152 H Total Protein 5.1 L Albumin 2.9 L 08/06/18 11:50 Clean Catch Midstream Legionella Urinary Antigen - Final 08/06/18 08/06/18 08/06/18 07:55 07:55 07:55 Creatine Kinase < 20 L CK-MB (CK-2) 0.77 Troponin I 0.092 NT-Pro-B Natriuret Pep 20056 H Impressions: Chest X-Ray 08/06/18 07:52 IMPRESSION: Asymmetric edema or pneumonia. PleurX catheter right lung. No pneumothorax. Assessment & Plan - Diagnosis (1) Pneumonia Is this a current diagnosis for this admission?: Yes Plan: Continue current antibiotics. (2) Leukocytosis Is this a current diagnosis for this admission?: Yes Plan: May be related to her underlying pneumonia we will continue the current anti biotics. (3) Stage IV small cell lung CA Is this a current diagnosis for this admission?: Yes Plan: Management per her primary oncologist. Patient's daughters are against the chemo and a try to put her in hospice care but the patient is against that. (4) Recurrent pleural effusion on left Is this a current diagnosis for this admission?: Yes Plan: Continue Pleurx (5) Systolic CHF Qualifiers: Heart failure chronicity: chronic Qualified Code(s): I50.22 - Chronic systolic (congestive) heart failure Is this a current diagnosis for this admission?: Yes Plan: Compensated. Continue her cardioprotective medications. (6) Complicated UTI (urinary tract infection) Is this a current diagnosis for this admission?: Yes Plan: Continue current antibiotics (7) Coronary artery disease Qualifiers: Coronary Disease-Associated Artery/Lesion type: squaxin artery Is this a current diagnosis for this admission?: Yes Plan: No anginal symptoms (8) COPD (chronic obstructive pulmonary disease) Qualifiers: Emphysema type: unspecified Is this a current diagnosis for this admission?: Yes Plan: Continue as needed bronchodilators (9) History of breast and bladder cancer Is this a current diagnosis for this admission?: Yes Plan: In remission
[2018-08-10] MEDS: MEROPENEM 500 MG in NORMAL SALINE 50 ML IV SCH ×3 (05:16→21:22)
[2018-08-10] MEDS: METHYLPREDNISOLONE INJ 40 MG/1 ML SDV IV SCH ×3 (05:21→21:22)
[2018-08-10] MEDS: LANSOPRAZOLE 30 MG TAB.RAP.DR PO SCH ×2 (05:21→17:18)
[2018-08-10 05:44] LABS: ANION GAP 7 (5-19); BLOOD UREA NITROGEN 25 mg/dL (7-20); CALCIUM 8.7 mg/dL (8.4-10.2); CARBON DIOXIDE 32 mmol/L (22-30); CHLORIDE 97 mmol/L (98-107); GLUCOSE 98 mg/dL (75-110); POTASSIUM 4.5 mmol/L (3.6-5.0)
[2018-08-10 05:55] LABS: HEMATOCRIT 26.3 % (36.0-47.0); HEMOGLOBIN 8.9 g/dL (12.0-15.5); MEAN CORPUSCULAR HEMOGLOBIN 29.9 pg (27.0-33.4); MEAN CORPUSCULAR HGB CONC 33.8 g/dL (32.0-36.0); MEAN CORPUSCULAR VOLUME 88 fl (80-97); RED BLOOD COUNT 2.97 10^6/uL (3.72-5.28); RED CELL DISTRIBUTION WIDTH 14.4 % (11.5-14.0)
[2018-08-10] MEDS: VANCOMYCIN HCL 750 MG in DEXTROSE 5%-WATER 250 ML IV SCH ×2 (06:24→17:19)
[2018-08-10 07:03] LABS: WHITE BLOOD COUNT 40.6 10^3/uL (4.0-10.5)
[2018-08-10 07:04] LABS: PLATELET COUNT 75 10^3/uL (150-450)
[2018-08-10 07:10] LABS: ABSOLUTE LYMPHOCYTES# (MANUAL) 3.7 10^3/uL (0.5-4.7); ABSOLUTE MONOCYTES # (MANUAL) 5.7 10^3/uL (0.1-1.4); ABSOLUTE NEUTROPHILS# (MANUAL) 31.3 10^3/uL (1.7-8.2); BAND NEUTROPHILS % (MANUAL) 7 % (3-5); BASOPHILS % (MANUAL) 0 % (0-2); EOSINOPHILS % (MANUAL) 0 % (0-6); LYMPHOCYTES % (MANUAL) 9 % (13-45); MONOCYTES % (MANUAL) 14 % (3-13); PROMYELOCYTES % (MANUAL) 1 % (0); SEGMENTED NEUTROPHILS % (MAN) 69 % (42-78); TOTAL CELLS COUNTED 100
[2018-08-10 07:11] LABS: TOXIC GRANULATION 2+; TOXIC VACUOLATION PRESENT
[2018-08-10 07:12] LABS: ANISOCYTOSIS SLIGHT; PLATELET COMMENT ADEQUATE; PLATELET LARGE PRESENT; ROULEAUX SLIGHT
--- NOTE | 2018-08-10 07:39 | ER Document Report ---
Entered by FELIPE DIAMOND SCRIBE 08/06/18 0753 Acting as scribe for:ANTONIO NUNES MD ED Respiratory Problem - General Stated Complaint: DIFFICULTY BREATHING Time Seen by Provider: 08/06/18 07:40 Primary Care Provider: MEL GRULLON MD [Primary Care Provider] - Follow up as needed Information source: Patient Notes: Patient is an 88-year-old female with a history of breast cancer in 1996 status post right mastectomy, lung cancer in 2008 status post left upper lobe resection, and bladder cancer diagnosed in 2016 who currently resides at [facility] who presents to the emergency department today with complaints of shortness of breath. Patient states she has been short of breath for several months. Patient states she has been getting right-sided pleurocentesis for these in the past. Patient states the fluid is always removed from the right lung and she does not know if it is related to her malignancy or some other etiology. Patient states she is currently staying at [facility] and they tried to "take fluid off yesterday but she does not know how much they got off". Patient has a Pleurx cath in place over the right posterior lung. Patient states she does not feel like they got much, if any off yesterday. TRAVEL OUTSIDE OF THE [place] IN LAST 30 DAYS: No - Related Data Allergies/Adverse Reactions: meperidine HCl [From Demerol] Allergy (Verified 07/16/14 17:13) Penicillins Allergy (Verified 07/16/14 17:13) Past Medical History - General Information source: Patient, [facility] Records - Social History Smoking Status: Never Smoker Cigarette use (# per day): No Frequency of alcohol use: None Drug Abuse: None Lives with: Prison Family History: None - Past Medical History Cardiac Medical History: Reports: Hx Hypertension Malignancy Medical History: Reports: Hx Breast Cancer - right mastectomy with 3 lymph nodes removed, 1996, Hx Lung Cancer - 2008, left upper lobe resection, Other - Bladder cancer, 2016 Past Surgical History: Reports: Hx Mastectomy - Right breast, 1996, Other - Left upper lobe resection, "back surgery", saliva gland removal Review of Systems - Review of Systems Constitutional: No symptoms reported EENT: No symptoms reported Cardiovascular: No symptoms reported Respiratory: See HPI, Short of breath Gastrointestinal: No symptoms reported Genitourinary: No symptoms reported Female Genitourinary: No symptoms reported Musculoskeletal: No symptoms reported Skin: No symptoms reported Hematologic/Lymphatic: No symptoms reported Neurological/Psychological: No symptoms reported -: Yes All other systems reviewed and negative Physical Exam - Vital signs Vitals: Temp Pulse Resp BP Pulse Ox 97.9 F 97 26 H 142/69 H 75 L 08/06/18 07:50 08/06/18 07:50 08/06/18 07:50 08/06/18 07:50 08/06/18 07:50 - Notes Notes: Physical Exam: General: Alert, appears age appropriate. HEENT: Normocephalic. Atraumatic. PERRL. Extraocular movements intact. Oropharynx clear. Neck: Supple. Non-tender. Respiratory: Dyspneic. Oxygen saturation drops down in the low 80s on nasal cannula, rales on the right, coarse breath sounds on the left, tachypneic. Right mastectomy. Pleurx catheter over the right posterior lung. Cardiovascular: Tachycardic, regular rhythm. Abdominal: Normal Inspection. Non-tender. No distension. Normal Bowel Sounds. Back: Non-tender. No deformity or step off. Extremities: Moves all four extremities. Upper extremities: Normal inspection. Normal ROM. Lower extremities: 1+ lower extremity edema. Normal ROM. Neurological: Normal cognition. AAOx4. Normal speech. Psychological: Normal affect. Normal Mood. Skin: Warm. Dry. Normal color. Course - Re-evaluation Re-evalutation: 08/06/18 12:19 I found the patient on 9 L of oxygen by nasal cannula with a mask on blowing room air from a nebulizer treatment. I turned the oxygen down to 4 L nasal cannula, patient maintained oxygen saturation at 95%. She tells me that she is normally on 2 L nasal cannula at home. The patient's white blood cell count was 0.5 with an ANC of 05 days ago. Today her white blood cell count is 10.6 with an ANC of 9.0 In view of her chest x-ray appearance this may be a response to a pneumonia so she will be treated with Levaquin antibiotic. Her platelet count has dropped from 57,000-18,000, so Solu-Medrol for her lungs may help with the low platelet count. - Vital Signs Vital signs: Temp Pulse Resp BP Pulse Ox 97.9 F 97 30 H 135/59 H 99 02/23/19 07:50 08/06/18 07:50 08/06/18 11:01 08/06/18 11:00 08/06/18 11:01 - Laboratory Result Diagrams: 08/06/18 08:40 08/06/18 07:55 Laboratory results interpreted by me: 08/06/18 08/06/18 08/06/18 07:55 07:55 08:40 WBC 10.6 H RBC 2.71 L Hgb 8.4 L Hct 24.1 L RDW 14.5 H Plt Count 18 L* Band Neutrophils % 6 H Lymphocytes % (Manual) 10 L Metamyelocytes % 1 H Abs Neuts (Manual) 9.0 H Sodium 136.8 L Chloride 96 L Carbon Dioxide 32 H Est GFR (Non-Af Amer) 58 L Alkaline Phosphatase 141 H Creatine Kinase < 20 L NT-Pro-B Natriuret Pep 86092 H Total Protein 5.2 L Albumin 3.1 L Urine Protein Urine Nitrite Urine Urobilinogen Urine Ascorbic Acid 08/06/18 11:50 WBC RBC Hgb Hct RDW Plt Count Band Neutrophils % Lymphocytes % (Manual) Metamyelocytes % Abs Neuts (Manual) Sodium Chloride Carbon Dioxide Est GFR (Non-Af Amer) Alkaline Phosphatase Creatine Kinase NT-Pro-B Natriuret Pep Total Protein Albumin Urine Protein 30 H Urine Nitrite POSITIVE H Urine Urobilinogen 4.0 H Urine Ascorbic Acid 40 H - Diagnostic Test Radiology reviewed: Image reviewed, Reports reviewed - Chest x-ray is read as asymmetric edema or pneumonia with a right sided Pleurx catheter. - EKG Interpretation by Me EKG shows normal: Sinus rhythm, [place], Intervals, QRS Complexes, ST-T Waves Rate: Normal - 97 Rhythm: NSR [place]/QRS: LBBB When compared to previous EKG there are: Previous EKG unavailable - Consults Dr. Craft Time consulted: 12:24 Consulted provider: will come to ER Critical Care Note - Critical Care Note Total time excluding time spent on procedures (mins): 35 Discharge - Discharge Clinical Impression: Small cell carcinoma of right lung, Hypoxemia, Thrombocytopenia Pneumonia Qualifiers: Pneumonia type: due to unspecified organism Laterality: right Lung location: unspecified part of lung Qualified Code(s): J18.9 - Pneumonia, unspecified organism Condition: Stable Disposition: ADMITTED INPATIENT Admitting Provider: Hospitalist Unit Admitted: Telemetry Referrals: MEL GRULLON MD [Primary Care Provider] - Follow up as needed I personally performed the services described in the documentation, reviewed and edited the documentation which was dictated to the scribe in my presence, and it accurately records my words and actions.
[2018-08-10] MEDS: ASPIRIN 81 MG TABLET, CHEWABLE PO SCH (08:13)
[2018-08-10] MEDS: CYANOCOBALAMIN (VITAMIN B-12) 1,000 MCG TABLET PO SCH (08:13)
[2018-08-10] MEDS: LISINOPRIL 10 MG TABLET PO SCH (08:13)
[2018-08-10] MEDS: ISOSORBIDE MONONITRATE 60 MG TAB.ER.24H PO SCH (08:13)
[2018-08-10] MEDS: FUROSEMIDE 40 MG TABLET PO SCH (08:13)
[2018-08-10] MEDS: LEVALBUTEROL HCL NEB 0.63 MG/3 ML AMPUL NEB SCH ×3 (09:11→20:45)
[2018-08-10] MEDS: POLYETHYLENE GLYCOL 3350 POWDER 17 GM/1 PACKET PO SCH (10:20)
[2018-08-10] MEDS: GUAIFENESIN 600 MG TABLET.SA PO SCH ×2 (10:49→21:22)
[2018-08-10] MEDS: METOPROLOL TARTRATE 25 MG TABLET PO SCH ×2 (10:50→21:23)
[2018-08-10] MEDS: TIOTROPIUM BROMIDE DPI 5 CAP/KIT (18 MCG/CAP) IH SCH (10:50)
--- NOTE | 2018-08-10 16:42 | PDOC PROGRESS REPORT ---
Subjective Progress Note for:: 08/10/18 Subjective:: I seen patient sitting by the bedside and enjoying her lunch. She is awake alert but she looks frail. Her white cell count is steadily is trending up. Her latest WBC is 14. I consulted Dr. Sergei Wade for her input. Currently patient is getting vancomycin and meropenem. Reason For Visit: PNEUMONIA Physical Exam Vital Signs: Temp Pulse Resp BP Pulse Ox 97.9 F 84 20 121/47 L 97 08/10/18 15:01 08/10/18 15:01 08/10/18 15:01 08/10/18 15:01 08/10/18 15:01 Intake & Output 08/09/18 08/10/18 08/11/18 06:59 06:59 06:59 Intake Total 1383 1395 654 Output Total 900 300 Balance 483 1095 654 Weight 81.8 kg General appearance: PRESENT: mild distress Eye exam: PRESENT: conjunctiva pink Mouth exam: PRESENT: moist Neck exam: ABSENT: carotid bruit, JVD, lymphadenopathy, thyromegaly Respiratory exam: PRESENT: crackles, decreased breath sounds, rhonchi GI/Abdominal exam: PRESENT: normal bowel sounds, soft. ABSENT: distended, guarding, mass, organolmegaly, rebound, tenderness Neurological exam: PRESENT: alert, awake Results Laboratory Results: 08/10/18 04:02 08/10/18 04:02 08/10/18 08/10/18 04:02 04:02 WBC 40.6 H* RBC 2.97 L Hgb 8.9 L Hct 26.3 L MCV 88 MCH 29.9 MCHC 33.8 RDW 14.4 H Plt Count 75 L Seg Neutrophils % Not Reportable Lymphocytes % Not Reportable Monocytes % Not Reportable Eosinophils % Not Reportable Basophils % Not Reportable Absolute Neutrophils Not Reportable Absolute Lymphocytes Not Reportable Absolute Monocytes Not Reportable Absolute Eosinophils Not Reportable Absolute Basophils Not Reportable Sodium 136.0 L Potassium 4.5 Chloride 97 L Carbon Dioxide 32 H Anion Gap 7 BUN 25 H Creatinine 1.12 Est GFR ( Amer) 56 L Est GFR (Non-Af Amer) 46 L Glucose 98 Calcium 8.7 08/06/18 08/06/18 08/06/18 07:55 07:55 07:55 Creatine Kinase < 20 L CK-MB (CK-2) 0.77 Troponin I 0.092 NT-Pro-B Natriuret Pep [id number] H Impressions: Chest X-Ray 08/06/18 07:52 IMPRESSION: Asymmetric edema or pneumonia. PleurX catheter right lung. No pneumothorax. Assessment & Plan - Diagnosis (1) Pneumonia Is this a current diagnosis for this admission?: Yes Plan: Continue current antibiotics. (2) Leukocytosis Is this a current diagnosis for this admission?: Yes Plan: Her white cell count is trending up steadily. It does not correlate with her clinical findings. (3) Stage IV small cell lung CA Is this a current diagnosis for this admission?: Yes Plan: Management per her primary oncologist. Patient's daughters are against the chemo and a try to put her in hospice care but the patient is against that. (4) Recurrent pleural effusion on left Is this a current diagnosis for this admission?: Yes Plan: Continue Pleurx (5) Systolic CHF Qualifiers: Heart failure chronicity: chronic Qualified Code(s): I50.22 - Chronic systolic (congestive) heart failure Is this a current diagnosis for this admission?: Yes Plan: Compensated. Continue her cardioprotective medications. (6) Complicated UTI (urinary tract infection) Is this a current diagnosis for this admission?: Yes Plan: Continue current antibiotics (7) Coronary artery disease Qualifiers: Coronary Disease-Associated Artery/Lesion type: [place] artery Is this a current diagnosis for this admission?: Yes Plan: No anginal symptoms (8) COPD (chronic obstructive pulmonary disease) Qualifiers: Emphysema type: unspecified Is this a current diagnosis for this admission?: Yes Plan: Continue as needed bronchodilators (9) History of breast and bladder cancer Is this a current diagnosis for this admission?: Yes Plan: In remission
--- NOTE | 2018-08-10 19:29 | Progress Note ---
Provider Note Provider Note: ID Consult Note Asked by Dr Garrido to review patient's chart. Pt not seen or examined. Pt is a 88 year old female [facility] resident with PMH including breast cancer s/p R mastectomy, lung cancer s/p MERT resection, CAD, CHF (HFrEF), and recurrent malignant R pleural effusion s/p PleurX catheter placement, chronic hypoxic respiratory failure on 2 L via NC. She has been receiving chemotherapy for extensive stage small cell lung cancer, with the last cycle about 2 weeks prior to presentation on 08/06/18 to the ED with c/o SOB. She reported to the ED provider feeling like the [facility] staff did not get much fluid off the day prior. In the ED she was afebrile but dyspneic and more hypoxic than her base line. Lungs were coarse b/l on auscultation in the ED. Subsequently lung sounds have been clear or decreased with crackles and rhonchi most recently. CXR AP film was read as showing asymmetric edema or pneumonia with bilateral airspace disease R>L. No films available for comparison. Pt was suspected of having pneumonia and/or COPD exacerbation. IV solumedrol 40 q8h was started, along with Levaquin empirically from 08/06-08/08 followed by meropenem 08/08 to present and vancomycin 08/06 to present. Blood cultures on admission are negative x 4 days. Urine legionella antigen is negative. WBC count increased from 10.6 on admission to now 40.6, Platelet count also increased from 18k to 75k. [place] B[place] admission was 78439. Rapid influenza antigen test was negative. U/A had 8 WBC/hpf. Urine culture grew >100k cfu of Klebsiella oxytoca (resistant to cefazolin, ampicillin, and Unasyn) and >100k cfu Pseudomonas aeruginosa (fluoroquinolone resistant). Sputum sent 3 days into admission on 08/09 has Gram stain preliminarily reported showing 2+ PMNs, 2+ epithelial cells, and 1+ GPCs in pairs. Impression/Recommendations Leukocytosis in lung cancer pt being treated for pneumonia - Leukocytosis is likely multifactorial. - The fact that her increasing WBC count has been noted to not correlate with her clinical findings is reassuring. She has not had fever, and O2 has been able to be weaned down closer to her baseline. - However, consider CT chest and abdomen/pelvis to rule out an occult infectious focus that might require a drainage procedure and/or longer duration of antibiotics. Infection related to the PleurX catheter can occur (signs of cellulitis/tunnel infection or pleural space infection with drainage of pus or positive culture of pleural fluid) but is uncommon. - In addition to infectious causes, leukocytosis or leukemoid reaction can be a paraneoplastic phenomenon of various cancers. It can reflect reflection of physiologic stress and increased adrenergic output or corticosteroid-induced demargination. Pt has been getting 40 mg q8h solumedrol, and this is likely contributing. - With no culture to guide treatment, it is hard to know how to de-escalate her empiric pneumonia therapy. She has no prior cultures to help base decisions on. Legionella urine antigen was negative, which is helpful, but sputum obtained 3 days into treatment is dubious. The sample also has equal numbers of PMNs and epithelial cells on Gram stain, which raises further doubt about sputum quality. - Continue meropenem and vancomycin for now. If no other focus is defined and her clinical trajectory apparently improving, I would plan to finish 7 days of treatment in total. She is on day 5. Sergei Wade MD [facility] Infectious Diseases pager [phone]
[2018-08-11] MEDS: MEROPENEM 500 MG in NORMAL SALINE 50 ML IV SCH ×3 (05:20→22:25)
[2018-08-11] MEDS: METHYLPREDNISOLONE INJ 40 MG/1 ML SDV IV SCH (05:20)
[2018-08-11] MEDS: LANSOPRAZOLE 30 MG TAB.RAP.DR PO SCH ×2 (05:20→17:06)
[2018-08-11] MEDS: VANCOMYCIN HCL 750 MG in DEXTROSE 5%-WATER 250 ML IV SCH ×2 (05:32→17:06)
[2018-08-11] MEDS: LEVALBUTEROL HCL NEB 0.63 MG/3 ML AMPUL NEB SCH ×3 (08:05→20:26)
[2018-08-11] MEDS: POLYETHYLENE GLYCOL 3350 POWDER 17 GM/1 PACKET PO SCH (08:16)
[2018-08-11] MEDS: FUROSEMIDE 40 MG TABLET PO SCH (08:16)
[2018-08-11] MEDS: ASPIRIN 81 MG TABLET, CHEWABLE PO SCH (08:16)
[2018-08-11] MEDS: LISINOPRIL 10 MG TABLET PO SCH (08:16)
[2018-08-11] MEDS: ISOSORBIDE MONONITRATE 60 MG TAB.ER.24H PO SCH (08:17)
[2018-08-11] MEDS: CYANOCOBALAMIN (VITAMIN B-12) 1,000 MCG TABLET PO SCH (08:17)
[2018-08-11] MEDS: METOPROLOL TARTRATE 25 MG TABLET PO SCH ×2 (09:49→22:24)
[2018-08-11] MEDS: GUAIFENESIN 600 MG TABLET.SA PO SCH ×2 (09:49→22:24)
[2018-08-11] MEDS: TIOTROPIUM BROMIDE DPI 5 CAP/KIT (18 MCG/CAP) IH SCH (09:51)
[2018-08-11 11:43] LABS: HEMATOCRIT 26.6 % (36.0-47.0); HEMOGLOBIN 8.9 g/dL (12.0-15.5); MEAN CORPUSCULAR HEMOGLOBIN 29.4 pg (27.0-33.4); MEAN CORPUSCULAR HGB CONC 33.4 g/dL (32.0-36.0); MEAN CORPUSCULAR VOLUME 88 fl (80-97); RED BLOOD COUNT 3.01 10^6/uL (3.72-5.28); RED CELL DISTRIBUTION WIDTH 14.9 % (11.5-14.0)
[2018-08-11] MEDS: PREDNISONE 20 MG TABLET PO SCH (11:57)
[2018-08-11 12:14] LABS: ABSOLUTE LYMPHOCYTES# (MANUAL) 2.1 10^3/uL (0.5-4.7); ABSOLUTE MONOCYTES # (MANUAL) 1.6 10^3/uL (0.1-1.4); ABSOLUTE NEUTROPHILS# (MANUAL) 48.1 10^3/uL (1.7-8.2); BAND NEUTROPHILS % (MANUAL) 6 % (3-5); BASOPHILS % (MANUAL) 0 % (0-2); EOSINOPHILS % (MANUAL) 0 % (0-6); LYMPHOCYTES % (MANUAL) 4 % (13-45); METAMYELOCYTES % (MANUAL) 1 % (0); MONOCYTES % (MANUAL) 3 % (3-13); MYELOCYTES % (MANUAL) 1 % (0); SEGMENTED NEUTROPHILS % (MAN) 85 % (42-78); TOTAL CELLS COUNTED 100
[2018-08-11 12:17] LABS: ANISOCYTOSIS SLIGHT; OVALOCYTES 1+; PLATELET COMMENT DECREASED; POIKILOCYTOSIS 1+; TOXIC GRANULATION 2+; TOXIC VACUOLATION PRESENT
[2018-08-11 12:22] LABS: WHITE BLOOD COUNT 51.7 10^3/uL (4.0-10.5)
[2018-08-11 12:35] LABS: PLATELET COUNT 79 10^3/uL (150-450)
--- NOTE | 2018-08-11 17:19 | PDOC PROGRESS REPORT ---
Subjective Progress Note for:: 08/11/18 Subjective:: I seen patient sitting on recliner and chatting with her friends. She is afebrile. No nausea vomiting or diarrhea. Her white cell count is a spiking continuously. Her latest WBC is 51,000. I consulted Dr. Sergei Wade who who recommended to continue the antibiotic for for 7 days and discontinue. The leukocytosis probably related to paraneoplastic syndrome, steroid use or stress related. I discontinue the Solu-Medrol and switch her to reduced p.o. prednisone. I will taper it further. Reason For Visit: PNEUMONIA Physical Exam Vital Signs: Temp Pulse Resp BP Pulse Ox 98.0 F 78 16 103/47 L 97 08/11/18 16:32 08/11/18 16:32 08/11/18 16:32 08/11/18 16:32 08/11/18 16:32 Intake & Output 08/10/18 08/11/18 08/12/18 06:59 06:59 06:59 Intake Total 1395 1630 300 Output Total 300 200 Balance 1095 1430 300 Weight 81.8 kg 82.2 kg General appearance: PRESENT: no acute distress Head exam: PRESENT: atraumatic Mouth exam: PRESENT: moist Neck exam: ABSENT: carotid bruit, JVD, lymphadenopathy, thyromegaly Respiratory exam: PRESENT: crackles, decreased breath sounds Cardiovascular exam: PRESENT: RRR. ABSENT: diastolic murmur, rubs, systolic murmur Neurological exam: PRESENT: alert, awake, oriented to time, oriented to situation Results Laboratory Results: 08/11/18 11:22 08/10/18 04:02 08/11/18 11:22 WBC 51.7 H* RBC 3.01 L Hgb 8.9 L Hct 26.6 L MCV 88 MCH 29.4 MCHC 33.4 RDW 14.9 H Plt Count 79 L Seg Neutrophils % Not Reportable Lymphocytes % Not Reportable Monocytes % Not Reportable Eosinophils % Not Reportable Basophils % Not Reportable Absolute Neutrophils Not Reportable Absolute Lymphocytes Not Reportable Absolute Monocytes Not Reportable Absolute Eosinophils Not Reportable Absolute Basophils Not Reportable 08/09/18 20:15 Sputum Gram Stain - Final 08/09/18 20:15 Sputum Sputum Culture - Final NORMAL BALTA 08/06/18 09:14 Blood Blood Culture - Final NO GROWTH IN 5 DAYS 08/06/18 08:00 Blood Blood Culture - Final NO GROWTH IN 5 DAYS 08/06/18 08/06/18 08/06/18 07:55 07:55 07:55 Creatine Kinase < 20 L CK-MB (CK-2) 0.77 Troponin I 0.092 NT-Pro-B Natriuret Pep [id number] H Impressions: Chest X-Ray 08/06/18 07:52 IMPRESSION: Asymmetric edema or pneumonia. PleurX catheter right lung. No pneumothorax. Assessment & Plan - Diagnosis (1) Pneumonia Is this a current diagnosis for this admission?: Yes Plan: Continue current antibiotics. (2) Leukocytosis Is this a current diagnosis for this admission?: Yes Plan: Her white cell count is trending up steadily. It does not correlate with her clinical findings. (3) Stage IV small cell lung CA Is this a current diagnosis for this admission?: Yes Plan: Management per her primary oncologist. Patient's daughters are against the chemo and a try to put her in hospice care but the patient is against that. (4) Recurrent pleural effusion on left Is this a current diagnosis for this admission?: Yes Plan: Continue Pleurx (5) Systolic CHF Qualifiers: Heart failure chronicity: chronic Qualified Code(s): I50.22 - Chronic systolic (congestive) heart failure Is this a current diagnosis for this admission?: Yes Plan: Compensated. Continue her cardioprotective medications. (6) Complicated UTI (urinary tract infection) Is this a current diagnosis for this admission?: Yes Plan: Continue current antibiotics (7) Coronary artery disease Qualifiers: Coronary Disease-Associated Artery/Lesion type: [place] artery Is this a current diagnosis for this admission?: Yes Plan: No anginal symptoms (8) COPD (chronic obstructive pulmonary disease) Qualifiers: Emphysema type: unspecified Is this a current diagnosis for this admission?: Yes Plan: Continue as needed bronchodilators (9) History of breast and bladder cancer Is this a current diagnosis for this admission?: Yes Plan: In remission
[2018-08-12] MEDS: MEROPENEM 500 MG in NORMAL SALINE 50 ML IV SCH ×3 (06:23→21:49)
[2018-08-12] MEDS: LANSOPRAZOLE 30 MG TAB.RAP.DR PO SCH ×2 (06:24→16:57)
[2018-08-12] MEDS: VANCOMYCIN HCL 750 MG in DEXTROSE 5%-WATER 250 ML IV SCH ×2 (06:39→17:00)
[2018-08-12] MEDS: FUROSEMIDE 40 MG TABLET PO SCH (07:54)
[2018-08-12] MEDS: CYANOCOBALAMIN (VITAMIN B-12) 1,000 MCG TABLET PO SCH (08:00)
[2018-08-12] MEDS: LISINOPRIL 10 MG TABLET PO SCH (08:00)
[2018-08-12] MEDS: ISOSORBIDE MONONITRATE 60 MG TAB.ER.24H PO SCH (08:00)
[2018-08-12] MEDS: ASPIRIN 81 MG TABLET, CHEWABLE PO SCH (08:01)
[2018-08-12] MEDS: POLYETHYLENE GLYCOL 3350 POWDER 17 GM/1 PACKET PO SCH (08:02)
[2018-08-12] MEDS: LEVALBUTEROL HCL NEB 0.63 MG/3 ML AMPUL NEB SCH ×3 (08:14→21:35)
[2018-08-12] MEDS: PREDNISONE 20 MG TABLET PO SCH (10:09)
[2018-08-12] MEDS: METOPROLOL TARTRATE 25 MG TABLET PO SCH ×2 (10:09→21:49)
[2018-08-12] MEDS: TIOTROPIUM BROMIDE DPI 5 CAP/KIT (18 MCG/CAP) IH SCH (10:10)
[2018-08-12] MEDS: GUAIFENESIN 600 MG TABLET.SA PO SCH ×2 (10:10→21:49)
--- NOTE | 2018-08-12 14:52 | PDOC PROGRESS REPORT ---
Subjective Progress Note for:: 08/12/18 Subjective:: Patient is new to me. This is a very pleasant 88 years old female patient with multiple comorbidities including coronary artery disease, CHF with ejection fraction of 25%, COPD and history of multiple cancers including breast bladder and recently also she has extensive stage small cell lung CA and she has been on chemotherapy. She is brought with chief complaint of shortness of breath is. Patient diagnosed with pneumonia and she is currently on potent antibiotics namely vancomycin and meropenem which has been started by the previous attending physician. Patient has also recurrent pleural effusion for which Pleurx has been placed and it does not draining much. Currently his only issue she has is markedly elevated white cell count. Consulted Dr. Sergei VAZQUEZ who recommended to complete 7 days of antibiotics. She attributed to the leukocytosis to steroid use. I have been tapering her steroid from Solu-Medrol 80 mg every 8 hours to prednisone 20 mg p.o. daily. Reason For Visit: PNEUMONIA Physical Exam Vital Signs: Temp Pulse Resp BP Pulse Ox 97.2 F 74 18 110/45 L 96 08/12/18 11:44 08/12/18 13:54 08/12/18 13:54 08/12/18 11:44 08/12/18 13:54 Intake & Output 08/11/18 08/12/18 08/13/18 06:59 06:59 06:59 Intake Total 1630 1375 300 Output Total 200 15 Balance 1430 1375 285 Weight 82.2 kg 82.4 kg General appearance: PRESENT: no acute distress Eye exam: PRESENT: conjunctiva pink Neck exam: ABSENT: carotid bruit, JVD, lymphadenopathy, thyromegaly Respiratory exam: PRESENT: clear to auscultation rodrigo. ABSENT: rales, rhonchi, wheezes GI/Abdominal exam: PRESENT: normal bowel sounds, soft. ABSENT: distended, guarding, mass, organolmegaly, rebound, tenderness Neurological exam: PRESENT: alert, awake, oriented to time, oriented to situation Results Laboratory Results: 08/11/18 11:22 08/10/18 04:02 08/09/18 20:15 Sputum Gram Stain - Final 08/09/18 20:15 Sputum Sputum Culture - Final NORMAL BALTA 08/06/18 08/06/18 08/06/18 07:55 07:55 07:55 Creatine Kinase < 20 L CK-MB (CK-2) 0.77 Troponin I 0.092 NT-Pro-B Natriuret Pep [id number] H Impressions: Chest X-Ray 08/06/18 07:52 IMPRESSION: Asymmetric edema or pneumonia. PleurX catheter right lung. No pneumothorax. Assessment & Plan - Diagnosis (1) Pneumonia Is this a current diagnosis for this admission?: Yes Plan: Continue current antibiotics. (2) Leukocytosis Is this a current diagnosis for this admission?: Yes Plan: Is tapering of the steroid hopefully it will come down. (3) Stage IV small cell lung CA Is this a current diagnosis for this admission?: Yes Plan: Management per her primary oncologist. Patient's daughters are against the chemo and a try to put her in hospice care but the patient is against that. (4) Recurrent pleural effusion on left Is this a current diagnosis for this admission?: Yes Plan: Continue Pleurx (5) Systolic CHF Qualifiers: Heart failure chronicity: chronic Qualified Code(s): I50.22 - Chronic systolic (congestive) heart failure Is this a current diagnosis for this admission?: Yes Plan: Compensated. Continue her cardioprotective medications. (6) Complicated UTI (urinary tract infection) Is this a current diagnosis for this admission?: Yes Plan: Continue current antibiotics (7) Coronary artery disease Qualifiers: Coronary Disease-Associated Artery/Lesion type: [place] artery Is this a current diagnosis for this admission?: Yes Plan: No anginal symptoms (8) COPD (chronic obstructive pulmonary disease) Qualifiers: Emphysema type: unspecified Is this a current diagnosis for this admission?: Yes Plan: Continue as needed bronchodilators (9) History of breast and bladder cancer Is this a current diagnosis for this admission?: Yes Plan: In remission
[2018-08-13 06:13] LABS: HEMATOCRIT 25.9 % (36.0-47.0); HEMOGLOBIN 8.6 g/dL (12.0-15.5); MEAN CORPUSCULAR HEMOGLOBIN 29.7 pg (27.0-33.4); MEAN CORPUSCULAR HGB CONC 33.3 g/dL (32.0-36.0); MEAN CORPUSCULAR VOLUME 89 fl (80-97); PLATELET COUNT 136 10^3/uL (150-450); RED BLOOD COUNT 2.91 10^6/uL (3.72-5.28); RED CELL DISTRIBUTION WIDTH 14.6 % (11.5-14.0)
[2018-08-13 06:18] LABS: VANCOMYCIN,TROUGH 29.9 ug/mL (5.0-20.0)
[2018-08-13] MEDS: MEROPENEM 500 MG in NORMAL SALINE 50 ML IV SCH ×3 (06:18→23:18)
[2018-08-13] MEDS: LANSOPRAZOLE 30 MG TAB.RAP.DR PO SCH ×2 (06:22→17:03)
[2018-08-13 06:32] LABS: WHITE BLOOD COUNT 57.3 10^3/uL (4.0-10.5)
[2018-08-13 06:36] LABS: ABSOLUTE LYMPHOCYTES# (MANUAL) 8.6 10^3/uL (0.5-4.7); ABSOLUTE MONOCYTES # (MANUAL) 6.3 10^3/uL (0.1-1.4); ABSOLUTE NEUTROPHILS# (MANUAL) 42.4 10^3/uL (1.7-8.2); BASOPHILS % (MANUAL) 0 % (0-2); EOSINOPHILS % (MANUAL) 0 % (0-6); LYMPHOCYTES % (MANUAL) 15 % (13-45); MONOCYTES % (MANUAL) 11 % (3-13); SEGMENTED NEUTROPHILS % (MAN) 74 % (42-78); TOTAL CELLS COUNTED 100
[2018-08-13 06:37] LABS: ANISOCYTOSIS 1+; PLATELET COMMENT ADEQUATE; POLYCHROMASIA 1+
[2018-08-13] MEDS: VANCOMYCIN HCL 750 MG in DEXTROSE 5%-WATER 250 ML IV SCH (06:51)
[2018-08-13] MEDS: LEVALBUTEROL HCL NEB 0.63 MG/3 ML AMPUL NEB SCH ×3 (07:50→19:23)
[2018-08-13] MEDS: FUROSEMIDE 40 MG TABLET PO SCH (09:10)
[2018-08-13] MEDS: ASPIRIN 81 MG TABLET, CHEWABLE PO SCH (09:10)
[2018-08-13] MEDS: ISOSORBIDE MONONITRATE 60 MG TAB.ER.24H PO SCH (09:10)
[2018-08-13] MEDS: GUAIFENESIN 600 MG TABLET.SA PO SCH ×2 (09:11→23:17)
[2018-08-13] MEDS: LISINOPRIL 10 MG TABLET PO SCH (09:11)
[2018-08-13] MEDS: METOPROLOL TARTRATE 25 MG TABLET PO SCH ×2 (09:11→23:17)
[2018-08-13] MEDS: TIOTROPIUM BROMIDE DPI 5 CAP/KIT (18 MCG/CAP) IH SCH (09:11)
[2018-08-13] MEDS: PREDNISONE 20 MG TABLET PO SCH (09:11)
[2018-08-13] MEDS: CYANOCOBALAMIN (VITAMIN B-12) 1,000 MCG TABLET PO SCH (09:11)
[2018-08-13] MEDS: POLYETHYLENE GLYCOL 3350 POWDER 17 GM/1 PACKET PO SCH (09:16)
--- NOTE | 2018-08-13 17:23 | PDOC PROGRESS REPORT ---
Subjective Progress Note for:: 08/13/18 Subjective:: Patient is seen resting in bed. Her daughter is at the bedside. She denies any chest pain, shortness of breath or dyspnea at rest. She denies any nausea, vomiting or abdominal pain. She denies any fevers or chills. She denies any significant arthralgias or myalgias. Remaining review of systems are negative Reason For Visit: PNEUMONIA Physical Exam Vital Signs: Temp Pulse Resp BP Pulse Ox 97.6 F 76 17 136/54 H 98 08/13/18 08:00 08/13/18 08:00 08/13/18 08:00 08/13/18 08:00 08/13/18 08:00 Intake & Output 08/12/18 08/13/18 08/14/18 06:59 06:59 06:59 Intake Total 1375 1497 Output Total 15 Balance 1375 1482 Weight 82.4 kg 86 kg General appearance: PRESENT: no acute distress, obese, well-developed, well- nourished Head exam: PRESENT: atraumatic, normocephalic Eye exam: PRESENT: conjunctiva pink, EOMI, PERRLA. ABSENT: scleral icterus Ear exam: PRESENT: normal external ear exam Mouth exam: PRESENT: moist, tongue midline Neck exam: ABSENT: carotid bruit, JVD, lymphadenopathy, thyromegaly Respiratory exam: PRESENT: crackles - right base, unlabored. ABSENT: rales, rhonchi, wheezes Cardiovascular exam: PRESENT: RRR. ABSENT: diastolic murmur, rubs, systolic murmur Pulses: PRESENT: normal dorsalis pedis pul Vascular exam: PRESENT: normal capillary refill GI/Abdominal exam: PRESENT: normal bowel sounds, soft. ABSENT: distended, guarding, mass, organolmegaly, rebound, tenderness Rectal exam: PRESENT: deferred Extremities exam: PRESENT: full ROM. ABSENT: calf tenderness, clubbing, pedal edema Musculoskeletal exam: PRESENT: ambulatory, full ROM Neurological exam: PRESENT: alert, awake, oriented to person, oriented to place, oriented to time, oriented to situation, CN II-XII grossly intact. ABSENT: motor sensory deficit Psychiatric exam: PRESENT: appropriate affect, normal mood. ABSENT: homicidal ideation, suicidal ideation Skin exam: PRESENT: dry, intact, warm, other - Pleurx catheter patent in right flank. ABSENT: cyanosis, rash Results Laboratory Results: 08/13/18 05:41 08/13/18 05:41 08/13/18 08/13/18 05:41 05:41 WBC 57.3 H* RBC 2.91 L Hgb 8.6 L Hct 25.9 L MCV 89 MCH 29.7 MCHC 33.3 RDW 14.6 H Plt Count 136 L Seg Neutrophils % Not Reportable Lymphocytes % Not Reportable Monocytes % Not Reportable Eosinophils % Not Reportable Basophils % Not Reportable Absolute Neutrophils Not Reportable Absolute Lymphocytes Not Reportable Absolute Monocytes Not Reportable Absolute Eosinophils Not Reportable Absolute Basophils Not Reportable Creatinine 0.93 Est GFR ( Amer) > 60 Est GFR (Non-Af Amer) 57 L 08/06/18 08/06/18 08/06/18 07:55 07:55 07:55 Creatine Kinase < 20 L CK-MB (CK-2) 0.77 Troponin I 0.092 NT-Pro-B Natriuret Pep [id number] H Impressions: Chest X-Ray 08/06/18 07:52 IMPRESSION: Asymmetric edema or pneumonia. PleurX catheter right lung. No pne umothorax. Assessment & Plan - Diagnosis (1) Pneumonia Is this a current diagnosis for this admission?: Yes Plan: Bilateral likely gram positive cocci, Will stop antibiotics after today. (2) COPD (chronic obstructive pulmonary disease) Qualifiers: Emphysema type: unspecified Is this a current diagnosis for this admission?: Yes Plan: Continue nebulizers. Will stop oral prednisone tomorrow (3) Complicated UTI (urinary tract infection) Is this a current diagnosis for this admission?: Yes Plan: Will continue Meropenem today and then stop per ID. Vanco on hold today due to levels (4) Leukocytosis Qualifiers: Leukocytosis type: bandemia Qualified Code(s): D72.825 - Bandemia Is this a current diagnosis for this admission?: Yes Plan: Bandemia has resolved. Still with increasing leucocytosis ID feels from combination of steroids and recent chemotherapy (5) Hypoxemia Is this a current diagnosis for this admission?: Yes Plan: Patient is presently on oxygen at 2l/min (6) Stage IV small cell lung CA Is this a current diagnosis for this admission?: Yes Plan: Oncology here does not feel she can tolerate any more chemo. She would like to talk to her oncologist Dr Perla prior to making decision to stop chemo and proceed with hospice care as her family wishes (7) Systolic CHF Qualifiers: Heart failure chronicity: chronic Qualified Code(s): I50.22 - Chronic systolic (congestive) heart failure Is this a current diagnosis for this admission?: Yes Plan: She appears euvolemic at the present time. EF is 25% (8) Thrombocytopenia Is this a current diagnosis for this admission?: Yes Plan: Platelets were 19k at admission, now up to 136K - Time Time Spent with patient: 25-34 minutes Total Critical Time (Minutes): 30 Medications reviewed and adjusted accordingly: Yes Anticipated discharge: SNF Within: when bed available
[2018-08-14] MEDS: LANSOPRAZOLE 30 MG TAB.RAP.DR PO SCH ×2 (05:12→17:27)
[2018-08-14] MEDS: MEROPENEM 500 MG in NORMAL SALINE 50 ML IV SCH ×3 (05:13→22:11)
[2018-08-14] MEDS: LEVALBUTEROL HCL NEB 0.63 MG/3 ML AMPUL NEB SCH ×3 (08:29→19:23)
[2018-08-14] MEDS: GUAIFENESIN 600 MG TABLET.SA PO SCH ×2 (09:46→23:11)
[2018-08-14] MEDS: METOPROLOL TARTRATE 25 MG TABLET PO SCH ×2 (09:46→22:12)
[2018-08-14] MEDS: LISINOPRIL 10 MG TABLET PO SCH (09:47)
[2018-08-14] MEDS: ISOSORBIDE MONONITRATE 60 MG TAB.ER.24H PO SCH (09:47)
[2018-08-14] MEDS: PREDNISONE 20 MG TABLET PO SCH (09:47)
[2018-08-14] MEDS: FUROSEMIDE 40 MG TABLET PO SCH (09:47)
[2018-08-14] MEDS: ASPIRIN 81 MG TABLET, CHEWABLE PO SCH (09:47)
[2018-08-14] MEDS: CYANOCOBALAMIN (VITAMIN B-12) 1,000 MCG TABLET PO SCH (09:48)
[2018-08-14] MEDS: TIOTROPIUM BROMIDE DPI 5 CAP/KIT (18 MCG/CAP) IH SCH (09:48)
[2018-08-14] MEDS: POLYETHYLENE GLYCOL 3350 POWDER 17 GM/1 PACKET PO SCH (09:49)
[2018-08-15] MEDS: LANSOPRAZOLE 30 MG TAB.RAP.DR PO SCH ×2 (05:47→17:21)
[2018-08-15] MEDS: MEROPENEM 500 MG in NORMAL SALINE 50 ML IV SCH (05:47)
[2018-08-15] MEDS: LEVALBUTEROL HCL NEB 0.63 MG/3 ML AMPUL NEB SCH ×3 (07:53→19:53)
[2018-08-15] MEDS: ISOSORBIDE MONONITRATE 60 MG TAB.ER.24H PO SCH (10:08)
[2018-08-15] MEDS: ASPIRIN 81 MG TABLET, CHEWABLE PO SCH (10:08)
[2018-08-15] MEDS: GUAIFENESIN 600 MG TABLET.SA PO SCH ×2 (10:09→22:45)
[2018-08-15] MEDS: TIOTROPIUM BROMIDE DPI 5 CAP/KIT (18 MCG/CAP) IH SCH (10:09)
[2018-08-15] MEDS: POLYETHYLENE GLYCOL 3350 POWDER 17 GM/1 PACKET PO SCH (10:09)
[2018-08-15] MEDS: FUROSEMIDE 40 MG TABLET PO SCH (10:09)
[2018-08-15] MEDS: PREDNISONE 20 MG TABLET PO SCH (10:09)
[2018-08-15] MEDS: CYANOCOBALAMIN (VITAMIN B-12) 1,000 MCG TABLET PO SCH (10:09)
[2018-08-15] MEDS: METOPROLOL TARTRATE 25 MG TABLET PO SCH ×2 (10:09→22:45)
[2018-08-15] MEDS: LISINOPRIL 10 MG TABLET PO SCH (10:09)
[2018-08-15] MEDS ORDERED: DOCUSATE SODIUM 100 MG CAPSULE PO PRN (12:12)
[2018-08-15] MEDS ORDERED: ALBUTEROL SULFATE HFA (90 MCG/PUFF) 200 PUFF/8.5 GM MDI IH PRN (12:12)
--- NOTE | 2018-08-15 12:32 | PDOC PROGRESS REPORT ---
Subjective Progress Note for:: 08/15/18 Subjective:: 08/15/2018-no acute events in the last 24 hours. Patient is comfortably in the chair. Daughter is bedside. Patient states she is going to talk to her oncologist Dr. Perla and requested him to start back on chemotherapy. She understood the side effects of the chemotherapy but still wants to go ahead. Patient is afebrile. WBC is 57,300, 2 days ago. Reason For Visit: PNEUMONIA Physical Exam Vital Signs: Temp Pulse Resp BP Pulse Ox 97.5 F 84 17 100/41 L 100 08/15/18 11:33 08/15/18 11:33 08/15/18 11:33 08/15/18 11:33 08/15/18 11:33 Intake & Output 08/14/18 08/15/18 08/16/18 06:59 06:59 06:59 Intake Total 1802 1080 50 Output Total 350 0 Balance 1802 730 50 Weight 86 kg 84.3 kg General appearance: PRESENT: no acute distress Head exam: PRESENT: atraumatic Eye exam: PRESENT: PERRLA Neck exam: ABSENT: carotid bruit, JVD, lymphadenopathy, thyromegaly Respiratory exam: PRESENT: clear to auscultation rodrigo. ABSENT: rales, rhonchi, wheezes Cardiovascular exam: PRESENT: tachycardia GI/Abdominal exam: PRESENT: normal bowel sounds, soft. ABSENT: distended, guarding, mass, organolmegaly, rebound, tenderness Extremities exam: PRESENT: full ROM. ABSENT: calf tenderness, clubbing, pedal edema Neurological exam: PRESENT: alert, awake, oriented to person, oriented to place, oriented to time, oriented to situation, CN II-XII grossly intact. ABSENT: motor sensory deficit Psychiatric exam: PRESENT: appropriate affect, normal mood. ABSENT: homicidal ideation, suicidal ideation Results Laboratory Results: 08/13/18 05:41 08/13/18 05:41 08/06/18 08/06/18 08/06/18 07:55 07:55 07:55 Creatine Kinase < 20 L CK-MB (CK-2) 0.77 Troponin I 0.092 NT-Pro-B Natriuret Pep [id number] H Impressions: Chest X-Ray 08/06/18 07:52 IMPRESSION: Asymmetric edema or pneumonia. PleurX catheter right lung. No pneumothorax. Assessment & Plan - Diagnosis (1) Pneumonia Qualifiers: Pneumonia type: due to unspecified organism Laterality: right Lung location: unspecified part of lung Qualified Code(s): J18.9 - Pneumonia, unspecified organism Is this a current diagnosis for this admission?: Yes Plan: 08/15/2018 patient is admitted for bilateral pneumonia. Most likely gram-positive cocci. Patient is afebrile. Presently not on antibiotic therapy. Dr. Rai recommended CT chest CT abdominal pelvis to rule out any occult infectious process going on. BC count is 15,302 days ago. And is to re check labs today and tomorrow. Patient is presently on meropenem. (2) COPD (chronic obstructive pulmonary disease) Is this a current diagnosis for this admission?: No Plan: 08/15/2018-patient has history of COPD getting nebulizer treatments. She is off the steroids. On examination chest bilateral entry was decreased no wheezing no crepitations are present. (3) UTI (urinary tract infection) Is this a current diagnosis for this admission?: Yes Plan: 08/15/2018-patient is presently on meropenem. Plan is to discontinue meropenem today as per ID recommendations. (4) Stage IV small cell lung CA Is this a current diagnosis for this admission?: No Plan: 08/15/2018-patient wants to go back on chemotherapy. She wants to speak to Dr. Perla her oncologist for more than 20 years and she clearly stated on her desire to me that she wants to go back on chemotherapy. She understood the side effects of the chemotherapy. (5) CHF (congestive heart failure) Is this a current diagnosis for this admission?: No Plan: 08/15/2018-patient history of congestive heart failure no echocardiogram report is available. Patient is euvolemic. EF is less than 25%. Most likely chronic systolic hypertension. (6) Thrombocytopenia Is this a current diagnosis for this admission?: No Plan: 08/15/2018-patient has thrombocytopenia latest platelet count is 1 36,000 improving. Cause is most likely secondary to small cell lung cancer. - Time Time Spent with patient: 25-34 minutes Medications reviewed and adjusted accordingly: Yes Anticipated discharge: Home
[2018-08-15 13:29] LABS: HEMATOCRIT 24.8 % (36.0-47.0); HEMOGLOBIN 8.3 g/dL (12.0-15.5); MEAN CORPUSCULAR HEMOGLOBIN 29.8 pg (27.0-33.4); MEAN CORPUSCULAR HGB CONC 33.6 g/dL (32.0-36.0); MEAN CORPUSCULAR VOLUME 89 fl (80-97); PLATELET COUNT 152 10^3/uL (150-450); RED BLOOD COUNT 2.81 10^6/uL (3.72-5.28); RED CELL DISTRIBUTION WIDTH 14.8 % (11.5-14.0)
[2018-08-15 13:41] LABS: ALANINE AMINOTRANSFERASE 23 U/L (9-52); ALBUMIN 2.8 g/dL (3.5-5.0); ALKALINE PHOSPHATASE 115 U/L (38-126); ANION GAP 6 (5-19); ASPARTATE AMINO TRANSFERASE 42 U/L (14-36); BILIRUBIN,DIRECT 0.3 mg/dL (0.0-0.4); BILIRUBIN,TOTAL 0.4 mg/dL (0.2-1.3); BLOOD UREA NITROGEN 25 mg/dL (7-20); CALCIUM 8.5 mg/dL (8.4-10.2); CARBON DIOXIDE 30 mmol/L (22-30); CHLORIDE 99 mmol/L (98-107); GLUCOSE 110 mg/dL (75-110); POTASSIUM 5.1 mmol/L (3.6-5.0); SODIUM 134.9 mmol/L (137-145); TOTAL PROTEIN 4.9 g/dL (6.3-8.2)
[2018-08-15 14:38] LABS: ABSOLUTE LYMPHOCYTES# (MANUAL) 3.4 10^3/uL (0.5-4.7); ABSOLUTE MONOCYTES # (MANUAL) 3.4 10^3/uL (0.1-1.4); BAND NEUTROPHILS % (MANUAL) 11 % (3-5); BASOPHILS % (MANUAL) 0 % (0-2); EOSINOPHILS % (MANUAL) 1 % (0-6); LYMPHOCYTES % (MANUAL) 8 % (13-45); METAMYELOCYTES % (MANUAL) 1 % (0); MONOCYTES % (MANUAL) 8 % (3-13); SEGMENTED NEUTROPHILS % (MAN) 70 % (42-78); TOTAL CELLS COUNTED 100
[2018-08-15 14:39] LABS: ANISOCYTOSIS SLIGHT; OVALOCYTES 1+; POIKILOCYTOSIS 1+
[2018-08-15 14:40] LABS: PLATELET COMMENT ADEQUATE; TOXIC GRANULATION SLIGHT
[2018-08-15 14:44] LABS: MYELOCYTES % (MANUAL) 1 % (0); WHITE BLOOD COUNT 42.2 10^3/uL (4.0-10.5)
--- NOTE | 2018-08-15 18:59 | RADIOLOGY REPORT (SQ) ---
EXAM DESCRIPTION: CT CHEST WITH COMPLETED DATE/TIME: 08/15/2018 5:00 pm REASON FOR STUDY: pneumonia COMPARISON: None TECHNIQUE: CT scan of the chest performed using helical scanning technique with dynamic intravenous contrast injection. Images reviewed with lung, soft tissue and bone windows. Reconstructed coronal and sagittal MPR and MIP images reviewed. All images stored on PACS. All CT scanners at this facility use dose modulation, iterative reconstruction, and/or weight based d osing when appropriate to reduce radiation dose to as low as reasonably achievable (ALARA). [facility]: Dose Right [facility]: CareDose [facility]: Dose Right [facility]: Teradose 4D [facility]: Simpli.fi CONTRAST TYPE AND DOSE: contrast/concentration: Isovue 350.00 mg/ml; Total Contrast Delivered: 96.0 ml; Total Saline Delivered: 38.5 ml RENAL FUNCTION: BUN 25 creatinine 0.8 RADIATION DOSE: CT Rad equipment meets quality standard of care and radiation dose reduction techniq ues were employed. CTDIvol: 13.3 - 17.3 mGy. DLP: 1843 mGy-cm. . LIMITATIONS: None. FINDINGS: LUNGS AND PLEURA: Somewhat loculated right pleural effusion. Lobular right pleural mass w ith maximal thickness of 17 mm. Additional anterior pleural nodularity on the right. Posterior righ t lower lobe pulmonary nodule the measures 18 mm. Medial lower lobe pulmonary nodule on image 31 baldomero sures about 11 mm. HILAR AND MEDIASTINAL STRUCTURES: Lower mediastinal mass measuring 39 mm in largest oblique diameter. See image 30. Small upper mediastinal mass see image 15. This measures 19 mm. HEART AND VASCULAR STRUCTURES: No aneurysm or dissection. Coronary atherosclerosis. Aortic atherosc lerosis. HARDWARE: Right thoracotomy catheter. UPPER ABDOMEN: See separate report of the CT of the abdomen. THYROID AND OTHER SOFT TISSUES: No masses. No adenopathy. BONES: No significant finding. OTHER: No other significant finding. IMPRESSION: Right pleural masses. Right pulmonary nodules. Right pleural effusion. Mediastinal ma sses. These findings are concerning for neoplasm. Recommend PET-CT. TECHNICAL DOCUMENTATION: JOB ID: [id number] Quality ID # 436: Final reports with documentation of one or more dose reduction techniques (e.g., Au tomated exposure control, adjustment of the mA and/or kV according to patient size, use of iterative reconstruction technique) 2010 [employer]- All Rights Reserved Reading location - IP/workstation name: [email or web address]
--- NOTE | 2018-08-15 23:03 | RADIOLOGY REPORT (SQ) ---
EXAM DESCRIPTION: CT ABDOMEN chest, PELVIS WITH IV CONTRAST COMPLETED DATE/TME: 08/15/2018 00:00 CLINICAL HISTORY: 88 years, Female, pneumonia COMPARISON: None. TECHNIQUE: [id number] Images stored on PACS. All CT scanners at this facility use dose modulation, iterative reconstruction, and/or weight based dosing when appropriate to reduce radiation dose to as low as reasonably achievable (ALARA). [facility]: Dose Right [facility]: CareDose [facility]: Dose Right [facility]: Teradose 4D [facility]: [place] LIMITATIONS: None. FINDINGS: CT chest: Posterior mediastinal soft tissue density difficult to separate from the esophagus measuring 3 x 2.8 x 4.6 cm is suspicious for posterior mediastinal adenopathy. Moderate atheromatous change. Coronary artery calcification. Nonenlarged but conspicuous subcarinal lymph node. Enlarged nodes in the anterior mediastinum are also noted. Osseous structures of the thorax are grossly intact. Small right pleural effusion. This has a suspected loculated component. Right thoracostomy tube in place. Irregular, nodular areas of pleural thickening associated with the right hemithorax, for which pleural-based metastasis should be considered. Areas of nodularity extending to the lower right hemithorax, right epiphrenic region. There are several pulmonary nodules in the right lung base, the largest projecting posteriorly measuring 1.6 cm. Mild emphysematous change. CT abdomen/pelvis: Osseous structures are grossly intact. The liver, spleen, adrenal glands, pancreas are unremarkable. Multiple gallstones. Lobulated cystic structure in the left adnexa measuring 5.8 x 3.2 cm could reflect residual/postmenopausal cyst. However follow-up is recommended. Severe atheromatous changes. Mild infrarenal abdominal aortic aneurysm measuring 3.2 x 3.6 cm. No gross evidence for bowel obstruction. No free air or free fluid. No retroperitoneal or mesenteric adenopathy. IMPRESSION: Nodular areas of pleural thickening/pleural based nodularity throughout the right hemithorax, concerning for malignancy. Posterior mediastinal as well as anterior superior mediastinal adenopathy is also noted. Soft tissue nodule in the posterior right lung base, having a solid appearance. Recommend tissue diagnosis. A small loculated right pleural effusion. Mild infrarenal abdominal aortic aneurysm. Cholelithiasis. Lobulated cystic structure in the left adnexa could reflect residual clot/postmenopausal cyst. Please refer to below recommendations for follow-up. AAA Size: Follow-up Recommendation (1): 2.6 - 2.9 cm Every 5 years (2) 3.0 - 3.4 cm Every 3 years 3.5 - 3.9 cm Every 12 months 4.0 - 4.4 cm Every 12 months, vasc consult rec 4.5 - 5.4 cm Every 6 months, vasc consult rec >=5.5 cm Referral to vascular surgeon recommended (1)Based upon the Society for Vascular Surgery Guidelines: J Vasc Surg. 2009 Mar;50(4 Suppl):S2-49 (2)For aortas of max richard of 2.6-2.9 cm that meet criteria for AAA (>= 1.5 x proximal normal segment). 2017 Fleischner Society Recommendations for Multiple Solid Lung Nodules Follow-Up base on size (average of long- and short-axis diameters). Use most suspicious nodule for followup. Nodule Size <6 mm Low-Risk Patient: No routine follow-up Nodule Size <6 mm High-Risk Patient: Optional CT at 12 months Nodule Size 6-8 mm Low-Risk Patient: CT at 3-[address] at 18-24 months Nodule Size 6-8 mm High-Risk Patient: CT at 3-6 months then at 18-24 months Nodule Size (mm) >8 Low-Risk Patient: CT at 3-6 months, then consider CT at 18-24 months Nodule Size (mm) >8 High-Risk Patient: CT at 3-6 months, then at 18-24 months . Recommendations for Probably benign adnexal cysts on CT and MR:(1)(2) (benign-appearing cysts on non IV-contrast CT or with one or more of the following complicating factors: angulated margins, not round or oval, poorly visualized such as obscured by artifact or low S/N.) Pre-menopause (<= 50 years if LMP unknown): <=3 cm: No follow-up imaging recommended >3 cm - <=5 cm: US f/u 6-12 weeks >5 cm - <=7 cm: US f/u promptly >7 cm: Consider MR w/IVC or surgical evaluation Early post-menopause (<=5 years from LMP; > 50 years to <= 55 years if LMP unknown): <=3 cm: No follow-up imaging recommended >3 cm - <=7 cm: US f/u promptly >7 cm: Consider MR w/IVC or surgical evaluation Late post-menopause (>5 years from LMP; > 55 years if LMP unknown): <=1 cm: No follow-up imaging recommended >1 cm - <=7 cm: US f/u promptly >7 cm: Consider MR w/IVC or surgical evaluation (1)Recommendations based on the 2013 ACR White Paper for Managing Incidental Adnexal Findings on Abdominal and Pelvic CT and MRI: J Am Jeff Radiol 2013;10:675-681 (2)Excludes normal/benign findings such as ovarian calcifications w/o associated non-calcified mass, corpus luteum cyst, previously characterized cyst and cyst with documented stability in size and appearance for >2 years. TECHNICAL DOCUMENTATION: Quality ID # 436: Final reports with documentation of one or more dose reduction techniques (e.g., Automated exposure control, adjustment of the mA and/or kV according to patient size, use of iterative reconstruction technique) copyright 2011 [employer]- All Rights Reserved
[2018-08-16] MEDS: LANSOPRAZOLE 30 MG TAB.RAP.DR PO SCH ×2 (06:03→16:24)
[2018-08-16 07:00] LABS: ALANINE AMINOTRANSFERASE 34 U/L (9-52); ALBUMIN 2.9 g/dL (3.5-5.0); ALKALINE PHOSPHATASE 129 U/L (38-126); ANION GAP 5 (5-19); ASPARTATE AMINO TRANSFERASE 29 U/L (14-36); BILIRUBIN,DIRECT 0.2 mg/dL (0.0-0.4); BILIRUBIN,TOTAL 0.4 mg/dL (0.2-1.3); BLOOD UREA NITROGEN 24 mg/dL (7-20); CALCIUM 8.7 mg/dL (8.4-10.2); CARBON DIOXIDE 36 mmol/L (22-30); CHLORIDE 96 mmol/L (98-107); POTASSIUM 4.9 mmol/L (3.6-5.0); SODIUM 136.8 mmol/L (137-145); TOTAL PROTEIN 5.1 g/dL (6.3-8.2)
[2018-08-16 07:32] LABS: HEMATOCRIT 28.1 % (36.0-47.0); HEMOGLOBIN 9.5 g/dL (12.0-15.5); MEAN CORPUSCULAR HEMOGLOBIN 29.9 pg (27.0-33.4); MEAN CORPUSCULAR HGB CONC 33.8 g/dL (32.0-36.0); MEAN CORPUSCULAR VOLUME 89 fl (80-97); PLATELET COUNT 197 10^3/uL (150-450); RED BLOOD COUNT 3.17 10^6/uL (3.72-5.28); RED CELL DISTRIBUTION WIDTH 14.8 % (11.5-14.0)
[2018-08-16 07:35] LABS: GLUCOSE 67 mg/dL (75-110)
[2018-08-16 07:46] LABS: ABSOLUTE LYMPHOCYTES# (MANUAL) 5.6 10^3/uL (0.5-4.7); ABSOLUTE MONOCYTES # (MANUAL) 2.6 10^3/uL (0.1-1.4); ABSOLUTE NEUTROPHILS# (MANUAL) 34.8 10^3/uL (1.7-8.2); BAND NEUTROPHILS % (MANUAL) 4 % (3-5); BASOPHILS % (MANUAL) 0 % (0-2); EOSINOPHILS % (MANUAL) 0 % (0-6); LYMPHOCYTES % (MANUAL) 13 % (13-45); METAMYELOCYTES % (MANUAL) 3 % (0); MONOCYTES % (MANUAL) 6 % (3-13); MYELOCYTES % (MANUAL) 1 % (0); PROMYELOCYTES % (MANUAL) 2 % (0); SEGMENTED NEUTROPHILS % (MAN) 71 % (42-78); TOTAL CELLS COUNTED 100
[2018-08-16 07:55] LABS: OVALOCYTES 1+; PLATELET COMMENT ADEQUATE; POLYCHROMASIA SLIGHT
[2018-08-16] MEDS: POLYETHYLENE GLYCOL 3350 POWDER 17 GM/1 PACKET PO SCH (08:19)
[2018-08-16] MEDS: ISOSORBIDE MONONITRATE 60 MG TAB.ER.24H PO SCH (08:19)
[2018-08-16] MEDS: LISINOPRIL 10 MG TABLET PO SCH (08:20)
[2018-08-16] MEDS: ASPIRIN 81 MG TABLET, CHEWABLE PO SCH (08:20)
[2018-08-16] MEDS: FUROSEMIDE 40 MG TABLET PO SCH (08:21)
[2018-08-16] MEDS: CYANOCOBALAMIN (VITAMIN B-12) 1,000 MCG TABLET PO SCH (08:22)
[2018-08-16] MEDS: LEVALBUTEROL HCL NEB 0.63 MG/3 ML AMPUL NEB SCH ×3 (08:32→20:02)
[2018-08-16 09:31] LABS: PATH REVIEW PATHOLOGIST REVIEWED
[2018-08-16] MEDS: METOPROLOL TARTRATE 25 MG TABLET PO SCH ×2 (09:42→22:04)
[2018-08-16] MEDS: GUAIFENESIN 600 MG TABLET.SA PO SCH ×2 (09:42→22:05)
[2018-08-16] MEDS: TIOTROPIUM BROMIDE DPI 5 CAP/KIT (18 MCG/CAP) IH SCH (09:42)
--- NOTE | 2018-08-16 12:14 | PDOC PROGRESS REPORT ---
Subjective Progress Note for:: 08/16/18 Subjective:: 08/15/2018-no acute events in the last 24 hours. Patient is comfortably in the chair. Daughter is bedside. Patient states she is going to talk to her oncologist Dr. Perla and requested him to start back on chemotherapy. She understood the side effects of the chemotherapy but still wants to go ahead. Patient is afebrile. WBC is 57,300, 2 days ago. 08/16/2018 no acute events in the last 24 hours. Patient is afebrile. Comfortably in the chair communicating very well. Denies any pain. Patient is waiting to hear from Dr. Perla about starting the chemotherapy here. Denies any nausea vomiting diarrhea or constipation today. Denies any fevers. Reason For Visit: PNEUMONIA Physical Exam Vital Signs: Temp Pulse Resp BP Pulse Ox 97.8 F 80 17 129/67 H 99 08/16/18 07:52 08/16/18 07:52 08/16/18 07:52 08/16/18 07:52 08/16/18 07:52 Intake & Output 08/15/18 08/16/18 08/17/18 06:59 06:59 06:59 Intake Total 1080 653 Output Total 350 900 100 Balance 730 -247 -100 Weight 84.3 kg 84.1 kg General appearance: PRESENT: no acute distress Head exam: PRESENT: atraumatic Eye exam: PRESENT: PERRLA Mouth exam: PRESENT: moist, tongue midline Neck exam: ABSENT: carotid bruit, JVD, lymphadenopathy, thyromegaly Respiratory exam: PRESENT: clear to auscultation rodrigo. ABSENT: rales, rhonchi, wheezes Cardiovascular exam: PRESENT: RRR. ABSENT: diastolic murmur, rubs, systolic murmur GI/Abdominal exam: PRESENT: normal bowel sounds, soft. ABSENT: distended, guarding, mass, organolmegaly, rebound, tenderness Neurological exam: PRESENT: alert, awake, oriented to person, oriented to place, oriented to time, oriented to situation, CN II-XII grossly intact. ABSENT: motor sensory deficit Psychiatric exam: PRESENT: appropriate affect, normal mood. ABSENT: homicidal ideation, suicidal ideation Results Laboratory Results: 08/16/18 06:26 08/16/18 06:26 08/15/18 08/15/18 08/16/18 12:58 12:58 06:26 WBC 42.2 H* 43.0 H* RBC 2.81 L 3.17 L Hgb 8.3 L 9.5 L Hct 24.8 L 28.1 L MCV 89 89 MCH 29.8 29.9 MCHC 33.6 33.8 RDW 14.8 H 14.8 H Plt Count 152 197 Seg Neutrophils % Not Reportable Not Reportable Lymphocytes % Not Reportable Not Reportable Monocytes % Not Reportable Not Reportable Eosinophils % Not Reportable Not Reportable Basophils % Not Reportable Not Reportable Absolute Neutrophils Not Reportable Not Reportable Absolute Lymphocytes Not Reportable Not Reportable Absolute Monocytes Not Reportable Not Reportable Absolute Eosinophils Not Reportable Not Reportable Absolute Basophils Not Reportable Not Reportable Sodium 134.9 L Potassium 5.1 H Chloride 99 Carbon Dioxide 30 Anion Gap 6 BUN 25 H Creatinine 0.80 Est GFR ( Amer) > 60 Est GFR (Non-Af Amer) > 60 Glucose 110 Calcium 8.5 Magnesium 2.1 Total Bilirubin 0.4 AST 42 H ALT 23 Alkaline Phosphatase 115 Total Protein 4.9 L Albumin 2.8 L 08/16/18 06:26 WBC RBC Hgb Hct MCV MCH MCHC RDW Plt Count Seg Neutrophils % Lymphocytes % Monocytes % Eosinophils % Basophils % Absolute Neutrophils Absolute Lymphocytes Absolute Monocytes Absolute Eosinophils Absolute Basophils Sodium 136.8 L Potassium 4.9 Chloride 96 L Carbon Dioxide 36 H Anion Gap 5 BUN 24 H Creatinine 0.85 Est GFR ( Amer) > 60 Est GFR (Non-Af Amer) > 60 Glucose 67 L Calcium 8.7 Magnesium 2.1 Total Bilirubin 0.4 AST 29 ALT 34 Alkaline Phosphatase 129 H Total Protein 5.1 L Albumin 2.9 L 08/06/18 08/06/18 08/06/18 07:55 07:55 07:55 Creatine Kinase < 20 L CK-MB (CK-2) 0.77 Troponin I 0.092 NT-Pro-B Natriuret Pep [id number] H Impressions: Chest X-Ray 08/06/18 07:52 IMPRESSION: Asymmetric edema or pneumonia. PleurX catheter right lung. No pneumothorax. Abdomen/Pelvis CT 08/15/18 00:00 IMPRESSION: Nodular areas of pleural thickening/pleural based nodularity throughout the right hemithorax, concerning for malignancy. Posterior mediastinal as well as anterior superior mediastinal adenopathy is also noted. Soft tissue nodule in the posterior right lung base, having a solid appearance. Recommend tissue diagnosis. A small loculated right pleural effusion. Mild infrarenal abdominal aortic aneurysm. Cholelithiasis. Lobulated cystic structure in the left adnexa could reflect residual clot/postmenopausal cyst. Please refer to below recommendations for follow-up. AAA Size: Follow-up Recommendation (1): 2.6 - 2.9 cm Every 5 years (2) 3.0 - 3.4 cm Every 3 years 3.5 - 3.9 cm Every 12 months 4.0 - 4.4 cm Every 12 months, vasc consult rec 4.5 - 5.4 cm Every 6 months, vasc consult rec >=5.5 cm Referral to vascular surgeon recommended (1)Based upon the Society for Vascular Surgery Guidelines: J Vasc Surg. 2009 Mar;50(4 Suppl):S2-49 (2)For aortas of max richard of 2.6-2.9 cm that meet criteria for AAA (>= 1.5 x proximal normal segment). 2017 Fleischner Society Recommendations for Multiple Solid Lung Nodules Follow-Up base on size (average of long- and short-axis diameters). Use most suspicious nodule for followup. Nodule Size <6 mm Low-Risk Patient: No routine follow-up Nodule Size <6 mm High-Risk Patient: Optional CT at 12 months Nodule Size 6-8 mm Low-Risk Patient: CT at 3-[address] at 18-24 months Nodule Size 6-8 mm High-Risk Patient: CT at 3-6 months then at 18-24 months Nodule Size (mm) >8 Low-Risk Patient: CT at 3-6 months, then consider CT at 18-24 months Nodule Size (mm) >8 High-Risk Patient: CT at 3-6 months, then at 18-24 months . Recommendations for Probably benign adnexal cysts on CT and MR:(1)(2) (benign-appearing cysts on non IV-contrast CT or with one or more of the following complicating factors: angulated margins, not round or oval, poorly visualized such as obscured by artifact or low S/N.) Pre-menopause (<= 50 years if LMP unknown): <=3 cm: No follow-up imaging recommended >3 cm - <=5 cm: US f/u 6-12 weeks >5 cm - <=7 cm: US f/u promptly >7 cm: Consider MR w/IVC or surgical evaluation Early post-menopause (<=5 years from LMP; > 50 years to <= 55 years if LMP unknown): <=3 cm: No follow-up imaging recommended >3 cm - <=7 cm: US f/u promptly >7 cm: Consider MR w/IVC or surgical evaluation Late post-menopause (>5 years from LMP; > 55 years if LMP unknown): <=1 cm: No follow-up imaging recommended >1 cm - <=7 cm: US f/u promptly >7 cm: Consider MR w/IVC or surgical evaluation (1)Recommendations based on the 2013 ACR White Paper for Managing Incidental Adnexal Findings on Abdominal and Pelvic CT and MRI: J Am Jeff Radiol 2013;10:675-681 (2)Excludes normal/benign findings such as ovarian calcifications w/o associated non-calcified mass, corpus luteum cyst, previously characterized cyst and cyst with documented stability in size and appearance for >2 years. TECHNICAL DOCUMENTATION: Quality ID # [id number]: Final reports with documentation of one or more dose reduction techniques (e.g., Automated exposure control, adjustment of the mA and/or kV according to patient size, use of iterative reconstruction technique) copyright 2011 [employer]- All Rights Reserved Chest CT 08/15/18 00:00 IMPRESSION: Right pleural masses. Right pulmonary nodules. Right pleural effusion. Mediastinal masses. These findings are concerning for neoplasm. Recommend PET-CT. Assessment & Plan - Diagnosis (1) Pneumonia Qualifiers: Pneumonia type: due to unspecified organism Laterality: right Lung location: unspecified part of lung Qualified Code(s): J18.9 - Pneumonia, unspecified organism Is this a current diagnosis for this admission?: Yes Plan: 08/15/2018 patient is admitted for bilateral pneumonia. Most likely gram-positive cocci. Patient is afebrile. Presently not on antibiotic therapy. Dr. Rai recommended CT chest CT abdominal pelvis to rule out any occult infectious pro cess going on. wBC count is 15,302 days ago. And is to re check labs today and tomorrow. Patient is presently on meropenem. 08/16/2018-patient was admitted for bilateral pneumonia most likely gram-positive cocci we did a CT chest yesterday shows right pleural metastasis no pneumonia was present, also found to have right pleural effusion and mediastinal masses. Looks like pneumonia is resolved. WBC count today is 43,000. High WBC most likely secondary to underlying malignancy. Presently she is not on antibiotics. (2) COPD (chronic obstructive pulmonary disease) Is this a current diagnosis for this admission?: No Plan: 08/15/2018-patient has history of COPD getting nebulizer treatments. She is off the steroids. On examination chest bilateral entry was decreased no wheezing no crepitations are present. 07/19/2018-patient has history of COPD. On examination chest bilateral entry was decreased no wheezing no crepitations. Patient is getting nebulizer treatments we will continue the present management. Patient is presently receiving albuterol inhaler, Xopenex nebulizations, Spiriva inhalation. Pulse ox on 2 L i s 99%. (3) UTI (urinary tract infection) Is this a current diagnosis for this admission?: Yes Plan: 08/15/2018-patient is presently on meropenem. Plan is to discontinue meropenem today as per ID recommendations. 08/16/2018-urine culture shows Klebsiella and pseudomonas aeruginosa on 08/06/2018 patient completed course of meropenem antibiotic therapy and it was discontinued from yesterday. (4) Stage IV small cell lung CA Is this a current diagnosis for this admission?: No Plan: 08/15/2018-patient wants to go back on chemotherapy. She wants to speak to Dr. Perla her oncologist for more than 20 years and she clearly stated on her desire to me that she wants to go back on chemotherapy. She understood the side effects of the chemotherapy. 08/16/2018-patient called Dr. Perla yesterday left a message waiting to hear from him about starting back on chemotherapy. CT chest and abdominal pelvis shows malignancy with metastasis. (5) CHF (congestive heart failure) Is this a current diagnosis for this admission?: No Plan: 08/15/2018-patient history of congestive heart failure no echocardiogram report is available. Patient is euvolemic. EF is less than 25%. Most likely chronic systolic hypertension. 08/16/2018-patient is euvolemic blood pressure is 129/67. Plan is to continue the present management. (6) Thrombocytopenia Is this a current diagnosis for this admission?: No Plan: 08/15/2018-patient has thrombocytopenia latest platelet count is 1 36,000 improving. Cause is most likely secondary to small cell lung cancer. 08/16/2018-platelet count is 197 today thrombocytopenia is resolved. - Time Time Spent with patient: 15-24 minutes Medications reviewed and adjusted accordingly: Yes Anticipated discharge: Home
[2018-08-16] MEDS ORDERED: NORMAL SALINE 1000 ML 1,000 ML IV ONE (15:45)
[2018-08-17] MEDS: LANSOPRAZOLE 30 MG TAB.RAP.DR PO SCH ×2 (05:48→17:13)
[2018-08-17] MEDS: POLYETHYLENE GLYCOL 3350 POWDER 17 GM/1 PACKET PO SCH (08:07)
[2018-08-17] MEDS: ISOSORBIDE MONONITRATE 60 MG TAB.ER.24H PO SCH (08:07)
[2018-08-17] MEDS: CYANOCOBALAMIN (VITAMIN B-12) 1,000 MCG TABLET PO SCH (08:07)
[2018-08-17] MEDS: ASPIRIN 81 MG TABLET, CHEWABLE PO SCH (08:07)
[2018-08-17] MEDS: LEVALBUTEROL HCL NEB 0.63 MG/3 ML AMPUL NEB SCH ×3 (08:29→19:36)
[2018-08-17] MEDS: METOPROLOL TARTRATE 25 MG TABLET PO SCH ×2 (09:21→21:45)
[2018-08-17] MEDS: GUAIFENESIN 600 MG TABLET.SA PO SCH ×2 (09:21→21:46)
[2018-08-17] MEDS: TIOTROPIUM BROMIDE DPI 5 CAP/KIT (18 MCG/CAP) IH SCH (10:15)
--- NOTE | 2018-08-17 14:49 | PDOC PROGRESS REPORT ---
Subjective Progress Note for:: 08/17/18 Subjective:: 08/15/2018-no acute events in the last 24 hours. Patient is comfortably in the chair. Daughter is bedside. Patient states she is going to talk to her oncologist Dr. Perla and requested him to start back on chemotherapy. She understood the side effects of the chemotherapy but still wants to go ahead. Patient is afebrile. WBC is 57,300, 2 days ago. 08/16/2018 no acute events in the last 24 hours. Patient is afebrile. Comfortably in the chair communicating very well. Denies any pain. Patient is waiting to hear from Dr. Perla about starting the chemotherapy here. Denies any nausea vomiting diarrhea or constipation today. Denies any fevers. 08/17/2018-no acute events in the last 24 hours. Patient is afebrile. I spoke to Dr. Perla he said he is far away from this hospital to come and start her on chemotherapy and is also saying he is going to be out of town from tomorrow his recommendation is for the patient to be transferred to [place] on Wednesday to start on chemotherapy there. In the meantime patient does not want to be discharged she says is too frail to go home and then go to [place], her request is to stay here in the hospital until Wednesday wants to be transferred after that , this transfer is going to be patient initiated , hope it does not violate EMTALA rules. Reason For Visit: PNEUMONIA Physical Exam Vital Signs: Temp Pulse Resp BP Pulse Ox 98.6 F 89 16 111/39 L 97 08/17/18 11:26 08/17/18 14:15 08/17/18 14:15 08/17/18 11:26 08/17/18 14:15 Intake & Output 08/16/18 08/17/18 08/18/18 06:59 06:59 06:59 Intake Total 653 2304 Output Total 900 1400 Balance -247 904 Weight 84.1 kg 87.5 kg General appearance: PRESENT: no acute distress Head exam: PRESENT: atraumatic Eye exam: PRESENT: PERRLA Neck exam: ABSENT: carotid bruit, JVD, lymphadenopathy, thyromegaly Respiratory exam: PRESENT: decreased breath sounds Cardiovascular exam: PRESENT: tachycardia GI/Abdominal exam: PRESENT: normal bowel sounds, soft. ABSENT: distended, guarding, mass, organolmegaly, rebound, tenderness Extremities exam: PRESENT: full ROM. ABSENT: calf tenderness, clubbing, pedal edema Neurological exam: PRESENT: alert, awake, oriented to person, oriented to place, oriented to time, oriented to situation, CN II-XII grossly intact. ABSENT: motor sensory deficit Psychiatric exam: PRESENT: appropriate affect, normal mood. ABSENT: homicidal ideation, suicidal ideation Results Laboratory Results: 08/16/18 06:26 08/16/18 06:26 08/06/18 08/06/18 08/06/18 07:55 07:55 07:55 Creatine Kinase < 20 L CK-MB (CK-2) 0.77 Troponin I 0.092 NT-Pro-B Natriuret Pep [id number] H Impressions: Chest X-Ray 08/06/18 07:52 IMPRESSION: Asymmetric edema or pneumonia. PleurX catheter right lung. No pneumothorax. Abdomen/Pelvis CT 08/15/18 00:00 IMPRESSION: Nodular areas of pleural thickening/pleural based nodularity throughout the right hemithorax, concerning for malignancy. Posterior mediastinal as well as anterior superior mediastinal adenopathy is also noted. Soft tissue nodule in the posterior right lung base, having a solid appearance. Recommend tissue diagnosis. A small loculated right pleural effusion. Mild infrarenal abdominal aortic aneurysm. Cholelithiasis. Lobulated cystic structure in the left adnexa could reflect residual clot/postmenopausal cyst. Please refer to below recommendations for follow-up. AAA Size: Follow-up Recommendation (1): 2.6 - 2.9 cm Every 5 years (2) 3.0 - 3.4 cm Every 3 years 3.5 - 3.9 cm Every 12 months 4.0 - 4.4 cm Every 12 months, vasc consult rec 4.5 - 5.4 cm Every 6 months, vasc consult rec >=5.5 cm Referral to vascular surgeon recommended (1)Based upon the Society for Vascular Surgery Guidelines: J Vasc Surg. 2009 Mar;50(4 Suppl):S2-49 (2)For aortas of max richard of 2.6-2.9 cm that meet criteria for AAA (>= 1.5 x proximal normal segment). 2017 Fleischner Society Recommendations for Multiple Solid Lung Nodules Follow-Up base on size (average of long- and short-axis diameters). Use most suspicious nodule for followup. Nodule Size <6 mm Low-Risk Patient: No routine follow-up Nodule Size <6 mm High-Risk Patient: Optional CT at 12 months Nodule Size 6-8 mm Low-Risk Patient: CT at 3-[address] at 18-24 months Nodule Size 6-8 mm High-Risk Patient: CT at 3-6 months then at 18-24 months Nodule Size (mm) >8 Low-Risk Patient: CT at 3-6 months, then consider CT at 18-24 months Nodule Size (mm) >8 High-Risk Patient: CT at 3-6 months, then at 18-24 months . Recommendations for Probably benign adnexal cysts on CT and MR:(1)(2) (benign-appearing cysts on non IV-contrast CT or with one or more of the following complicating factors: angulated margins, not round or oval, poorly visualized such as obscured by artifact or low S/N.) Pre-menopause (<= 50 years if LMP unknown): <=3 cm: No follow-up imaging recommended >3 cm - <=5 cm: US f/u 6-12 weeks >5 cm - <=7 cm: US f/u promptly >7 cm: Consider MR w/IVC or surgical evaluation Early post-menopause (<=5 years from LMP; > 50 years to <= 55 years if LMP unknown): <=3 cm: No follow-up imaging recommended >3 cm - <=7 cm: US f/u promptly >7 cm: Consider MR w/IVC or surgical evaluation Late post-menopause (>5 years from LMP; > 55 years if LMP unknown): <=1 cm: No follow-up imaging recommended >1 cm - <=7 cm: US f/u promptly >7 cm: Consider MR w/IVC or surgical evaluation (1)Recommendations based on the 2013 ACR White Paper for Managing Incidental Adnexal Findings on Abdominal and Pelvic CT and MRI: J Am Jeff Radiol 2013;10:675-681 (2)Excludes normal/benign findings such as ovarian calcifications w/o associated non-calcified mass, corpus luteum cyst, previously characterized cyst and cyst with documented stability in size and appearance for >2 years. TECHNICAL DOCUMENTATION: Quality ID # [id number]: Final reports with documentation of one or more dose reduction techniques (e.g., Automated exposure control, adjustment of the mA and/or kV according to patient size, use of iterative reconstruction technique) copyright 2010 [employer]- All Rights Reserved Chest CT 08/15/18 00:00 IMPRESSION: Right pleural masses. Right pulmonary nodules. Right pleural effusion. Mediastinal masses. These findings are concerning for neoplasm. Recommend PET-CT. Assessment & Plan - Diagnosis (1) Pneumonia Qualifiers: Pneumonia type: due to unspecified organism Laterality: right Lung location: unspecified part of lung Qualified Code(s): J18.9 - Pneumonia, unspecified organism Is this a current diagnosis for this admission?: Yes Plan: 08/15/2018 patient is admitted for bilateral pneumonia. Most likely gram-positive cocci. Patient is afebrile. Presently not on antibiotic therapy. Dr. Rai recommended CT chest CT abdominal pelvis to rule out any occult infectious process going on. wBC count is 15,302 days ago. And is to re check labs today and tomorrow. Patient is presently on meropenem. 08/16/2018-patient was admitted for bilateral pneumonia most likely gram-positive cocci we did a CT chest yesterday shows right pleural metastasis no pneumonia was present, also found to have right pleural effusion and mediastinal masses. Looks like pneumonia is resolved. WBC count today is 43,000. High WBC most likely secondary to underlying malignancy. Presently she is not on antibiotics. 08/17/2018-WBC count is still 43,000 most likely secondary to underlying malignancy. CT chest and CT abdomen and pelvis was done there is no infection focus found. Antibiotics are discontinued. (2) COPD (chronic obstructive pulmonary disease) Is this a current diagnosis for this admission?: No Plan: 08/15/2018-patient has history of COPD getting nebulizer treatments. She is off the steroids. On examination chest bilateral entry was decreased no wheezing no crepitations are present. 08/16/2018-patient has history of COPD. On examination chest bilateral entry was decreased no wheezing no crepitations. Patient is getting nebulizer treatments we will continue the present management. Patient is presently receiving albuterol inhaler, Xopenex nebulizations, Spiriva inhalation. Pulse ox on 2 L is 99%. 08/17/2018-patient has history of COPD on examination chest bilateral entry was decreased no wheezing no crepitations. Patient is on albuterol inhalation, Xopenex nebulizations, Spiriva inhalation daily. Pulse ox is 92% on 3 L. (3) UTI (urinary tract infection) Is this a current diagnosis for this admission?: Yes Plan: 08/15/2018-patient is presently on meropenem. Plan is to discontinue meropenem today as per ID recommendations. 08/16/2018-urine culture shows Klebsiella and pseudomonas aeruginosa on 08/06/2018 patient completed course of meropenem antibiotic therapy and it was discontinued from yesterday. 08/17/2018-urine cultures showed Klebsiella and Pseudomonas on 08/06/2018 completed the course of IV meropenem patient is afebrile T-max is 98.6. (4) Stage IV small cell lung CA Is this a current diagnosis for this admission?: No Plan: 08/15/2018-patient wants to go back on chemotherapy. She wants to speak to Dr. Perla her oncologist for more than 20 years and she clearly stated on her desire to me that she wants to go back on chemotherapy. She understood the side effects of the chemotherapy. 08/16/2018-patient called Dr. Perla yesterday left a message waiting to hear from him about starting back on chemotherapy. CT chest and abdominal pelvis shows ma lignancy with metastasis. 08/17/2018-I spoke to Dr. Perla is planning to start chemotherapy in [facility] on Wednesday his request is to transfer the patient of the for further management. I requested the patient about possibility of discharging her today and going to [facility] on Wednesday, patient states she is too frail to be discharged , prefers to go from here to the other hospital on Wednesday with ambulance , i explained to her that transfer is going to be patient initiated because we do have the services for chemotherapy here in this hospital ,patient understood but she says Dr. Perla is her doctor and she wants to go the to get a chemotherapy under his care. (5) CHF (congestive heart failure) Is this a current diagnosis for this admission?: No Plan: 08/15/2018-patient history of congestive heart failure no echocardiogram report is available. Patient is euvolemic. EF is less than 25%. Most likely chronic systolic hypertension. 08/16/2018-patient is euvolemic blood pressure is 129/67. Plan is to continue the present management. 08/17/2018-patient blood pressure today is 1 1 1/60. Asymptomatic. Recent echocardiogram shows EF of 25% suggesting she has chronic congestive heart failure which is systolic in nature. (6) Thrombocytopenia Is this a current diagnosis for this admission?: No Plan: 08/15/2018-patient has thrombocytopenia latest platelet count is 1 36,000 improving. Cause is most likely secondary to small cell lung cancer. 08/16/2018-platelet count is 197 today thrombocytopenia is resolved. 08/17/2018-platelet count is 197 today thrombocytopenia is resolved. - Time Time Spent with patient: 15-24 minutes Medications reviewed and adjusted accordingly: Yes
[2018-08-18] MEDS: LANSOPRAZOLE 30 MG TAB.RAP.DR PO SCH ×2 (06:49→17:10)
[2018-08-18] MEDS: LEVALBUTEROL HCL NEB 0.63 MG/3 ML AMPUL NEB SCH ×3 (08:32→19:32)
[2018-08-18] MEDS: POLYETHYLENE GLYCOL 3350 POWDER 17 GM/1 PACKET PO SCH (09:17)
[2018-08-18] MEDS: ASPIRIN 81 MG TABLET, CHEWABLE PO SCH (09:31)
[2018-08-18] MEDS: CYANOCOBALAMIN (VITAMIN B-12) 1,000 MCG TABLET PO SCH (09:31)
[2018-08-18] MEDS: ISOSORBIDE MONONITRATE 60 MG TAB.ER.24H PO SCH (09:31)
[2018-08-18] MEDS: METOPROLOL TARTRATE 25 MG TABLET PO SCH ×2 (09:32→22:06)
[2018-08-18] MEDS: TIOTROPIUM BROMIDE DPI 5 CAP/KIT (18 MCG/CAP) IH SCH (09:32)
[2018-08-18] MEDS: GUAIFENESIN 600 MG TABLET.SA PO SCH ×2 (09:32→22:07)
--- NOTE | 2018-08-18 14:58 | PDOC PROGRESS REPORT ---
Subjective Progress Note for:: 08/18/18 Subjective:: 08/15/2018-no acute events in the last 24 hours. Patient is comfortably in the chair. Daughter is bedside. Patient states she is going to talk to her oncologist Dr. Perla and requested him to start back on chemotherapy. She understood the side effects of the chemotherapy but still wants to go ahead. Patient is afebrile. WBC is 57,300, 2 days ago. 08/16/2018 no acute events in the last 24 hours. Patient is afebrile. Comfortably in the chair communicating very well. Denies any pain. Patient is waiting to hear from Dr. Perla about starting the chemotherapy here. Denies any nausea vomiting diarrhea or constipation today. Denies any fevers. 08/17/2018-no acute events in the last 24 hours. Patient is afebrile. I spoke to Dr. Perla he said he is far away from this hospital to come and start her on chemotherapy and is also saying he is going to be out of town from tomorrow his recommendation is for the patient to be transferred to [place] on Wednesday to start on chemotherapy there. In the meantime patient does not want to be discharged she says is too frail to go home and then go to [place], her request is to stay here in the hospital until Wednesday wants to be transferred after that , this transfer is going to be patient initiated , hope it does not violate EMTALA rules. 08/18/2018-no acute events in the last 24 hours. Patient is afebrile. No complaints concerns from the patient. She is comfortable in the chair communicating well. Reason For Visit: PNEUMONIA Physical Exam Vital Signs: Temp Pulse Resp BP Pulse Ox 97.8 F 81 14 112/29 L 93 08/18/18 11:32 08/18/18 14:16 08/18/18 14:16 08/18/18 11:32 08/18/18 14:16 Intake & Output 08/17/18 08/18/18 08/19/18 06:59 06:59 06:59 Intake Total 2304 700 Output Total 1400 300 Balance 904 400 Weight 87.5 kg 87.5 kg 87.5 kg General appearance: PRESENT: no acute distress Head exam: PRESENT: atraumatic Eye exam: PRESENT: PERRLA Mouth exam: PRESENT: dry mucosa Neck exam: ABSENT: carotid bruit, JVD, lymphadenopathy, thyromegaly Respiratory exam: PRESENT: clear to auscultation rodrigo. ABSENT: rales, rhonchi, wheezes Cardiovascular exam: PRESENT: RRR. ABSENT: diastolic murmur, rubs, systolic murmur GI/Abdominal exam: PRESENT: normal bowel sounds, soft. ABSENT: distended, guarding, mass, organolmegaly, rebound, tenderness Extremities exam: PRESENT: full ROM. ABSENT: calf tenderness, clubbing, pedal edema Neurological exam: PRESENT: alert, awake, oriented to person, oriented to place, oriented to time, oriented to situation, CN II-XII grossly intact. ABSENT: motor sensory deficit Psychiatric exam: PRESENT: appropriate affect, normal mood. ABSENT: homicidal ideation, suicidal ideation Results Laboratory Results: 08/16/18 06:26 08/16/18 06:26 08/06/18 08/06/18 08/06/18 07:55 07:55 07:55 Creatine Kinase < 20 L CK-MB (CK-2) 0.77 Troponin I 0.092 NT-Pro-B Natriuret Pep [id number] H Impressions: Chest X-Ray 08/06/18 07:52 IMPRESSION: Asymmetric edema or pneumonia. PleurX catheter right lung. No pneumothorax. Abdomen/Pelvis CT 08/15/18 00:00 IMPRESSION: Nodular areas of pleural thickening/pleural based nodularity throughout the right hemithorax, concerning for malignancy. Posterior mediastinal as well as anterior superior mediastinal adenopathy is also noted. Soft tissue nodule in the posterior right lung base, having a solid appearance. Recommend tissue diagnosis. A small loculated right pleural effusion. Mild infrarenal abdominal aortic aneurysm. Cholelithiasis. Lobulated cystic structure in the left adnexa could reflect residual clot/postmenopausal cyst. Please refer to below recommendations for follow-up. AAA Size: Follow-up Recommendation (1): 2.6 - 2.9 cm Every 5 years (2) 3.0 - 3.4 cm Every 3 years 3.5 - 3.9 cm Every 12 months 4.0 - 4.4 cm Every 12 months, vasc consult rec 4.5 - 5.4 cm Every 6 months, vasc consult rec >=5.5 cm Referral to vascular surgeon recommended (1)Based upon the Society for Vascular Surgery Guidelines: J Vasc Surg. 2009 Mar;50(4 Suppl):S2-49 (2)For aortas of max richard of 2.6-2.9 cm that meet criteria for AAA (>= 1.5 x proximal normal segment). 2017 Fleischner Society Recommendations for Multiple Solid Lung Nodules Follow-Up base on size (average of long- and short-axis diameters). Use most suspicious nodule for followup. Nodule Size <6 mm Low-Risk Patient: No routine follow-up Nodule Size <6 mm High-Risk Patient: Optional CT at 12 months Nodule Size 6-8 mm Low-Risk Patient: CT at 3-[address] at 18-24 months Nodule Size 6-8 mm High-Risk Patient: CT at 3-6 months then at 18-24 months Nodule Size (mm) >8 Low-Risk Patient: CT at 3-6 months, then consider CT at 18-24 months Nodule Size (mm) >8 High-Risk Patient: CT at 3-6 months, then at 18-24 months . Recommendations for Probably benign adnexal cysts on CT and MR:(1)(2) (benign-appearing cysts on non IV-contrast CT or with one or more of the following complicating factors: angulated margins, not round or oval, poorly visualized such as obscured by artifact or low S/N.) Pre-menopause (<= 50 years if LMP unknown): <=3 cm: No follow-up imaging recommended >3 cm - <=5 cm: US f/u 6-12 weeks >5 cm - <=7 cm: US f/u promptly >7 cm: Consider MR w/IVC or surgical evaluation Early post-menopause (<=5 years from LMP; > 50 years to <= 55 years if LMP unknown): <=3 cm: No follow-up imaging recommended >3 cm - <=7 cm: US f/u promptly >7 cm: Consider MR w/IVC or surgical evaluation Late post-menopause (>5 years from LMP; > 55 years if LMP unknown): <=1 cm: No follow-up imaging recommended >1 cm - <=7 cm: US f/u promptly >7 cm: Consider MR w/IVC or surgical evaluation (1)Recommendations based on the 2013 ACR White Paper for Managing Incidental Adnexal Findings on Abdominal and Pelvic CT and MRI: J Am Jeff Radiol 2013;10:675-681 (2)Excludes normal/benign findings such as ovarian calcifications w/o associated non-calcified mass, corpus luteum cyst, previously characterized cyst and cyst with documented stability in size and appearance for >2 years. TECHNICAL DOCUMENTATION: Quality ID # [id number]: Final reports with documentation of one or more dose reduction techniques (e.g., Automated exposure control, adjustment of the mA and/or kV according to patient size, use of iterative reconstruction technique) copyright 2011 [employer]- All Rights Reserved Chest CT 08/15/18 00:00 IMPRESSION: Right pleural masses. Right pulmonary nodules. Right pleural effusion. Mediastinal masses. These findings are concerning for neoplasm. Recommend PET-CT. Assessment & Plan - Diagnosis (1) Pneumonia Qualifiers: Pneumonia type: due to unspecified organism Laterality: right Lung location: unspecified part of lung Qualified Code(s): J18.9 - Pneumonia, unspecified organism Is this a current diagnosis for this admission?: Yes Plan: 08/15/2018 patient is admitted for bilateral pneumonia. Most likely gram-positive cocci. Patient is afebrile. Presently not on antibiotic therapy. Dr. Rai recommended CT chest CT abdominal pelvis to rule out any occult infectious process going on. wBC count is 15,302 days ago. And is to re check labs today and tomorrow. Patient is presently on meropenem. 08/16/2018-patient was admitted for bilateral pneumonia most likely gram-positive cocci we did a CT chest yesterday shows right pleural metastasis no pneumonia was present, also found to have right pleural effusion and mediastinal masses. Looks like pneumonia is resolved. WBC count today is 43,000. High WBC most likely secondary to underlying malignancy. Presently she is not on antibiotics. 08/17/2018-WBC count is still 43,000 most likely secondary to underlying malignanc y. CT chest and CT abdomen and pelvis was done there is no infection focus found. Antibiotics are discontinued. 08/18/2018-patient's WBC count today is 43,000. Most likely secondary to underlying malignancy. CT chest and abdomen ruled out any infectious process. (2) COPD (chronic obstructive pulmonary disease) Is this a current diagnosis for this admission?: No Plan: 08/15/2018-patient has history of COPD getting nebulizer treatments. She is off the steroids. On examination chest bilateral entry was decreased no wheezing no crepitations are present. 08/16/2018-patient has history of COPD. On examination chest bilateral entry was decreased no wheezing no crepitations. Patient is getting nebulizer treatments we will continue the present management. Patient is presently receiving albuterol inhaler, Xopenex nebulizations, Spiriva inhalation. Pulse ox on 2 L is 99%. 08/17/2018-patient has history of COPD on examination chest bilateral entry was decreased no wheezing no crepitations. Patient is on albuterol inhalation, Xopenex nebulizations, Spiriva inhalation daily. Pulse ox is 92% on 3 L. 08/18/2018-patient has history of COPD not on home oxygen. On examination chest bilateral entry was decreased no wheezing no crepitations. Pulse ox is 93% on 2 L. Plan is to continue the present management. (3) UTI (urinary tract infection) Is this a current diagnosis for this admission?: Yes Plan: 08/15/2018-patient is presently on meropenem. Plan is to discontinue meropenem today as per ID recommendations. 08/16/2018-urine culture shows Klebsiella and pseudomonas aeruginosa on 08/06/2018 patient completed course of meropenem antibiotic therapy and it was discontinued from yesterday. 08/17/2018-urine cultures showed Klebsiella and Pseudomonas on 08/06/2018 completed the course of IV meropenem patient is afebrile T-max is 98.6. 08/18/2018-urine culture is positive for Klebsiella and Pseudomonas patient completed the course of IV meropenem she is afebrile now temperature is 97.9 today. Presently she is not on any antibiotics. (4) Stage IV small cell lung CA Is this a current diagnosis for this admission?: No Plan: 08/15/2018-patient wants to go back on chemotherapy. She wants to speak to Dr. Perla her oncologist for more than 20 years and she clearly stated on her madeline re to me that she wants to go back on chemotherapy. She understood the side effects of the chemotherapy. 08/16/2018-patient called Dr. Perla yesterday left a message waiting to hear from him about starting back on chemotherapy. CT chest and abdominal pelvis shows malignancy with metastasis. 08/17/2018-I spoke to Dr. Perla is planning to start chemotherapy in [facility] on Wednesday his request is to transfer the patient of the for further management. I requested the patient about possibility of discharging her today and going to [facility] on Wednesday, patient states she is too frail to be discharged , prefers to go from here to the other hospital on Wednesday with ambulance , i explained to her that transfer is going to be patient initiated because we do have the services for chemotherapy here in this hospital ,patient understood but she says Dr. Perla is her doctor and she wants to go the to get a chemotherapy under his care. 08/18/2018-patient has history of stage IV small cell lung cancer she prefers to go back on chemotherapy Dr. Perla is going to start the chemotherapy for her in [place] on Wednesday. Patient is going to [place] Wednesday it is a patient requested transfer. (5) CHF (congestive heart failure) Is this a current diagnosis for this admission?: No Plan: 08/15/2018-patient history of congestive heart failure no echocardiogram report is available. Patient is euvolemic. EF is less than 25%. Most likely chronic systolic hypertension. 08/16/2018-patient is euvolemic blood pressure is 129/67. Plan is to continue the present management. 08/17/2018-patient blood pressure today is 1 1 1/60. Asymptomatic. Recent echocardiogram shows EF of 25% suggesting she has chronic congestive heart failure which is systolic in nature. 08/18/2018-patient has chronic systolic left heart failure. EF is less than 25%. Patient is euvolemic. (6) Thrombocytopenia Is this a current diagnosis for this admission?: No Plan: 08/15/2018-patient has thrombocytopenia latest platelet count is 1 36,000 improving. Cause is most likely secondary to small cell lung cancer. 08/16/2018-platelet count is 197 today thrombocytopenia is resolved. 08/17/2018-platelet count is 197 today thrombocytopenia is resolved. 08/18/2018-patient's platelet count is 197 stable. Thrombocytopenia is resolved. - Time Time Spent with patient: 15-24 minutes Medications reviewed and adjusted accordingly: Yes Anticipated discharge: Home, [facility]
[2018-08-19] MEDS: LANSOPRAZOLE 30 MG TAB.RAP.DR PO SCH ×2 (06:13→16:04)
[2018-08-19 06:42] LABS: HEMATOCRIT 26.2 % (36.0-47.0); MEAN CORPUSCULAR HEMOGLOBIN 30.6 pg (27.0-33.4); MEAN CORPUSCULAR HGB CONC 34.3 g/dL (32.0-36.0); MEAN CORPUSCULAR VOLUME 89 fl (80-97); PLATELET COUNT 172 10^3/uL (150-450); RED BLOOD COUNT 2.95 10^6/uL (3.72-5.28); RED CELL DISTRIBUTION WIDTH 15.4 % (11.5-14.0); WHITE BLOOD COUNT 14.1 10^3/uL (4.0-10.5)
[2018-08-19 06:56] LABS: ALANINE AMINOTRANSFERASE 22 U/L (9-52); ALKALINE PHOSPHATASE 97 U/L (38-126); ANION GAP 7 (5-19); ASPARTATE AMINO TRANSFERASE 41 U/L (14-36); BILIRUBIN,DIRECT 0.3 mg/dL (0.0-0.4); BILIRUBIN,TOTAL 0.5 mg/dL (0.2-1.3); BLOOD UREA NITROGEN 17 mg/dL (7-20); CALCIUM 8.6 mg/dL (8.4-10.2); CARBON DIOXIDE 28 mmol/L (22-30); CHLORIDE 100 mmol/L (98-107); GLUCOSE 79 mg/dL (75-110); POTASSIUM 5.3 mmol/L (3.6-5.0); SODIUM 134.7 mmol/L (137-145); TOTAL PROTEIN 5.1 g/dL (6.3-8.2)
[2018-08-19 07:02] LABS: SEGMENTED NEUTROPHILS % (MAN) 63 % (42-78); TOTAL CELLS COUNTED 100
[2018-08-19 07:03] LABS: ABSOLUTE LYMPHOCYTES# (MANUAL) 2.1 10^3/uL (0.5-4.7); ABSOLUTE MONOCYTES # (MANUAL) 1.6 10^3/uL (0.1-1.4); ABSOLUTE NEUTROPHILS# (MANUAL) 10.4 10^3/uL (1.7-8.2); BAND NEUTROPHILS % (MANUAL) 10 % (3-5); BASOPHILS % (MANUAL) 0 % (0-2); EOSINOPHILS % (MANUAL) 0 % (0-6); LYMPHOCYTES % (MANUAL) 15 % (13-45); METAMYELOCYTES % (MANUAL) 1 % (0); MONOCYTES % (MANUAL) 11 % (3-13); TOXIC GRANULATION SLIGHT
[2018-08-19 07:04] LABS: ANISOCYTOSIS SLIGHT; PLATELET COMMENT ADEQUATE; TOXIC VACUOLATION PRESENT
[2018-08-19] MEDS: LEVALBUTEROL HCL NEB 0.63 MG/3 ML AMPUL NEB SCH ×3 (07:52→19:15)
[2018-08-19] MEDS: ASPIRIN 81 MG TABLET, CHEWABLE PO SCH (08:05)
[2018-08-19] MEDS: CYANOCOBALAMIN (VITAMIN B-12) 1,000 MCG TABLET PO SCH (08:05)
[2018-08-19] MEDS: ISOSORBIDE MONONITRATE 60 MG TAB.ER.24H PO SCH (08:05)
[2018-08-19] MEDS: POLYETHYLENE GLYCOL 3350 POWDER 17 GM/1 PACKET PO SCH (08:07)
[2018-08-19] MEDS: GUAIFENESIN 600 MG TABLET.SA PO SCH ×2 (11:13→21:54)
[2018-08-19] MEDS: TIOTROPIUM BROMIDE DPI 5 CAP/KIT (18 MCG/CAP) IH SCH (11:14)
[2018-08-19] MEDS: METOPROLOL TARTRATE 25 MG TABLET PO SCH ×2 (11:52→21:54)
--- NOTE | 2018-08-19 14:10 | PDOC PROGRESS REPORT ---
Subjective Progress Note for:: 08/19/18 Subjective:: 08/15/2018-no acute events in the last 24 hours. Patient is comfortably in the chair. Daughter is bedside. Patient states she is going to talk to her oncologist Dr. Perla and requested him to start back on chemotherapy. She understood the side effects of the chemotherapy but still wants to go ahead. Patient is afebrile. WBC is 57,300, 2 days ago. 08/16/2018 no acute events in the last 24 hours. Patient is afebrile. Comfortably in the chair communicating very well. Denies any pain. Patient is waiting to hear from Dr. Perla about starting the chemotherapy here. Denies any nausea vomiting diarrhea or constipation today. Denies any fevers. 08/17/2018-no acute events in the last 24 hours. Patient is afebrile. I spoke to Dr. Perla he said he is far away from this hospital to come and start her on chemotherapy and is also saying he is going to be out of town from tomorrow his recommendation is for the patient to be transferred to [place] on Wednesday to start on chemotherapy there. In the meantime patient does not want to be discharged she says is too frail to go home and then go to [place], her request is to stay here in the hospital until Wednesday wants to be transferred after that , this transfer is going to be patient initiated , hope it does not violate EMTALA rules. 08/18/2018-no acute events in the last 24 hours. Patient is afebrile. No complaints concerns from the patient. She is comfortable in the chair communicating well. 08/19/2018-no acute events in the last 24 hours. Patient is afebrile. Patient is going to [facility] on Wednesday for resumption of chemotherapy. Dr. Perla is going to arrange for chemotherapy. Reason For Visit: PNEUMONIA Physical Exam Vital Signs: Temp Pulse Resp BP Pulse Ox 97.7 F 91 14 112/53 L 94 08/19/18 11:39 08/19/18 13:19 08/19/18 13:19 08/19/18 11:39 08/19/18 13:19 Intake & Output 08/18/18 08/19/18 08/20/18 06:59 06:59 06:59 Intake Total 700 600 Output Total 300 Balance 400 600 Weight 87.5 kg 87.5 kg General appearance: PRESENT: no acute distress Head exam: PRESENT: atraumatic Eye exam: PRESENT: PERRLA Mouth exam: PRESENT: moist, tongue midline Neck exam: ABSENT: carotid bruit, JVD, lymphadenopathy, thyromegaly Respiratory exam: PRESENT: clear to auscultation rodrigo. ABSENT: rales, rhonchi, wheezes Cardiovascular exam: PRESENT: RRR. ABSENT: diastolic murmur, rubs, systolic murmur GI/Abdominal exam: PRESENT: normal bowel sounds, soft. ABSENT: distended, guarding, mass, organolmegaly, rebound, tenderness Extremities exam: PRESENT: full ROM. ABSENT: calf tenderness, clubbing, pedal edema Neurological exam: PRESENT: alert, awake, oriented to person, oriented to place, oriented to time, oriented to situation, CN II-XII grossly intact. ABSENT: motor sensory deficit Psychiatric exam: PRESENT: appropriate affect, normal mood. ABSENT: homicidal ideation, suicidal ideation Results Laboratory Results: 08/19/18 06:24 08/19/18 06:24 08/19/18 08/19/18 06:24 06:24 WBC 14.1 H RBC 2.95 L Hgb 9.0 L Hct 26.2 L MCV 89 MCH 30.6 MCHC 34.3 RDW 15.4 H Plt Count 172 Seg Neutrophils % Not Reportable Lymphocytes % Not Reportable Monocytes % Not Reportable Eosinophils % Not Reportable Basophils % Not Reportable Absolute Neutrophils Not Reportable Absolute Lymphocytes Not Reportable Absolute Monocytes Not Reportable Absolute Eosinophils Not Reportable Absolute Basophils Not Reportable Sodium 134.7 L Potassium 5.3 H Chloride 100 Carbon Dioxide 28 Anion Gap 7 BUN 17 Creatinine 0.91 Est GFR ( Amer) > 60 Est GFR (Non-Af Amer) 58 L Glucose 79 Calcium 8.6 Magnesium 2.3 Total Bilirubin 0.5 AST 41 H ALT 22 Alkaline Phosphatase 97 Total Protein 5.1 L Albumin 3.0 L 08/06/18 08/06/18 08/06/18 07:55 07:55 07:55 Creatine Kinase < 20 L CK-MB (CK-2) 0.77 Troponin I 0.092 NT-Pro-B Natriuret Pep 58539 H Impressions: Chest X-Ray 08/06/18 07:52 IMPRESSION: Asymmetric edema or pneumonia. PleurX catheter right lung. No pneumothorax. Abdomen/Pelvis CT 08/15/18 00:00 IMPRESSION: Nodular areas of pleural thickening/pleural based nodularity throughout the right hemithorax, concerning for malignancy. Posterior mediastinal as well as anterior superior mediastinal adenopathy is also noted. Soft tissue nodule in the posterior right lung base, having a solid appearance. Recommend tissue diagnosis. A small loculated right pleural effusion. Mild infrarenal abdominal aortic aneurysm. Cholelithiasis. Lobulated cystic structure in the left adnexa could reflect residual clot/postmenopausal cyst. Please refer to below recommendations for follow-up. AAA Size: Follow-up Recommendation (1): 2.6 - 2.9 cm Every 5 years (2) 3.0 - 3.4 cm Every 3 years 3.5 - 3.9 cm Every 12 months 4.0 - 4.4 cm Every 12 months, vasc consult rec 4.5 - 5.4 cm Every 6 months, vasc consult rec >=5.5 cm Referral to vascular surgeon recommended (1)Based upon the Society for Vascular Surgery Guidelines: J Vasc Surg. 2009 Mar;50(4 Suppl):S2-49 (2)For aortas of max richard of 2.6-2.9 cm that meet criteria for AAA (>= 1.5 x proximal normal segment). 2017 Fleischner Society Recommendations for Multiple Solid Lung Nodules Follow-Up base on size (average of long- and short-axis diameters). Use most suspicious nodule for followup. Nodule Size <6 mm Low-Risk Patient: No routine follow-up Nodule Size <6 mm High-Risk Patient: Optional CT at 12 months Nodule Size 6-8 mm Low-Risk Patient: CT at 3-[address] at 18-24 months Nodule Size 6-8 mm High-Risk Patient: CT at 3-6 months then at 18-24 months Nodule Size (mm) >8 Low-Risk Patient: CT at 3-6 months, then consider CT at 18-24 months Nodule Size (mm) >8 High-Risk Patient: CT at 3-6 months, then at 18-24 months . Recommendations for Probably benign adnexal cysts on CT and MR:(1)(2) (benign-appearing cysts on non IV-contrast CT or with one or more of the following complicating factors: angulated margins, not round or oval, poorly visualized such as obscured by artifact or low S/N.) Pre-menopause (<= 50 years if LMP unknown): <=3 cm: No follow-up imaging recommended >3 cm - <=5 cm: US f/u 6-12 weeks >5 cm - <=7 cm: US f/u promptly >7 cm: Consider MR w/IVC or surgical evaluation Early post-menopause (<=5 years from LMP; > 50 years to <= 55 years if LMP unknown): <=3 cm: No follow-up imaging recommended >3 cm - <=7 cm: US f/u promptly >7 cm: Consider MR w/IVC or surgical evaluation Late post-menopause (>5 years from LMP; > 55 years if LMP unknown): <=1 cm: No follow-up imaging recommended >1 cm - <=7 cm: US f/u promptly >7 cm: Consider MR w/IVC or surgical evaluation (1)Recommendations based on the 2013 ACR White Paper for Managing Incidental Adnexal Findings on Abdominal and Pelvic CT and MRI: J Am Jeff Radiol 2013;10:675-681 (2)Excludes normal/benign findings such as ovarian calcifications w/o associated non-calcified mass, corpus luteum cyst, previously characterized cyst and cyst with documented stability in size and appearance for >2 years. TECHNICAL DOCUMENTATION: Quality ID # [id number]: Final reports with documentation of one or more dose reduction techniques (e.g., Automated exposure control, adjustment of the mA and/or kV according to patient size, use of iterative reconstruction technique) copyright 2011 [employer]- All Rights Reserved Chest CT 08/15/18 00:00 IMPRESSION: Right pleural masses. Right pulmonary nodules. Right pleural effusion. Mediastinal masses. These findings are concerning for neoplasm. Recommend PET-CT. Assessment & Plan - Diagnosis (1) Pneumonia Qualifiers: Pneumonia type: due to unspecified organism Laterality: right Lung location: unspecified part of lung Qualified Code(s): J18.9 - Pneumonia, unspecified organism Is this a current diagnosis for this admission?: Yes Plan: 08/15/2018 patient is admitted for bilateral pneumonia. Most likely gram-positive cocci. Patient is afebrile. Presently not on antibiotic therapy. Dr. Rai recommended CT chest CT abdominal pelvis to rule out any occult infectious process going on. wBC count is 15,302 days ago. And is to re check labs today and tomorrow. Patient is presently on meropenem. 08/16/2018-patient was admitted for bilateral pneumonia most likely gram-positive cocci we did a CT chest yesterday shows right pleural metastasis no pneumonia was present, also found to have right pleural effusion and mediastinal masses. Looks like pneumonia is resolved. WBC count today is 43,000. High WBC most likely secondary to underlying malignancy. Presently she is not on antibiotics. 08/17/2018-WBC count is still 43,000 most likely secondary to underlying malignancy. CT chest and CT abdomen and pelvis was done there is no infection focus found. Antibiotics are discontinued. 08/18/2018-patient's WBC count today is 43,000. Most likely secondary to u nderlying malignancy. CT chest and abdomen ruled out any infectious process. 08/19/2018-patient's WBC count dropped to 14,000 today improved from 43,000 high WBC most likely secondary to underlying malignancy CT chest and abdomen ruled out any infectious process antibiotics are discontinued 2 days ago. (2) COPD (chronic obstructive pulmonary disease) Is this a current diagnosis for this admission?: No Plan: 08/15/2018-patient has history of COPD getting nebulizer treatments. She is off the steroids. On examination chest bilateral entry was decreased no wheezing no crepitations are present. 08/16/2018-patient has history of COPD. On examination chest bilateral entry was decreased no wheezing no crepitations. Patient is getting nebulizer treatments we will continue the present management. Patient is presently receiving albuterol inhaler, Xopenex nebulizations, Spiriva inhalation. Pulse ox on 2 L is 99%. 08/17/2018-patient has history of COPD on examination chest bilateral entry was decreased no wheezing no crepitations. Patient is on albuterol inhalation, Xopenex nebulizations, Spiriva inhalation daily. Pulse ox is 92% on 3 L. 08/18/2018-patient has history of COPD not on home oxygen. On examination chest bilateral entry was decreased no wheezing no crepitations. Pulse ox is 93% on 2 L. Plan is to continue the present management. 08/19/2018-patient has history of COPD not on home oxygen on examination no wheezing no crepitations comfortably in the chair oxygen level is 100% on 2 L. (3) UTI (urinary tract infection) Is this a current diagnosis for this admission?: Yes Plan: 08/15/2018-patient is presently on meropenem. Plan is to discontinue meropenem today as per ID recommendations. 08/16/2018-urine culture shows Klebsiella and pseudomonas aeruginosa on 08/06/2018 patient completed course of meropenem antibiotic therapy and it was discontinued from yesterday. 08/17/2018-urine cultures showed Klebsiella and Pseudomonas on 08/06/2018 completed the course of IV meropenem patient is afebrile T-max is 98.6. 08/18/2018-urine culture is positive for Klebsiella and Pseudomonas patient completed the course of IV meropenem she is afebrile now temperature is 97.9 today. Presently she is not on any antibiotics. 08/19/2018-urine culture shows Klebsiella Pseudomonas completed the antibiotic therapy. (4) Stage IV small cell lung CA Is this a current diagnosis for this admission?: No Plan: 08/15/2018-patient wants to go back on chemotherapy. She wants to speak to Dr. Perla her oncologist for more than 20 years and she clearly stated on her desire to me that she wants to go back on chemotherapy. She understood the side effects of the chemotherapy. 08/16/2018-patient called Dr. Perla yesterday left a message waiting to hear from him about starting back on chemotherapy. CT chest and abdominal pelvis shows malignancy with metastasis. 08/17/2018-I spoke to Dr. Perla is planning to start chemotherapy in [facility] on Wednesday his request is to transfer the patient of the for further management. I requested the patient about possibility of discharging her today and going to [facility] on Wednesday, patient states she is too frail to be discharged , prefers to go from here to the other hospital on Wednesday with ambulance , i explained to her that transfer is going to be patient initiated because we do have the services for chemotherapy here in this hospital ,patient understood but she says Dr. Perla is her doctor and she wants to go the to get a chemotherapy under his care. 08/18/2018-patient has history of stage IV small cell lung cancer she prefers to go back on chemotherapy Dr. Perla is going to start the chemotherapy for her in [place] on Wednesday. Patient is going to [facility] Wednesday it is a patient requested transfer. 08/19/2018-patient has a stage IV lung cancer she is going to [place] on Wednesday to start the chemotherapy. (5) CHF (congestive heart failure) Is this a current diagnosis for this admission?: No Plan: 08/15/2018-patient history of congestive heart failure no echocardiogram report is available. Patient is euvolemic. EF is less than 25%. Most likely chronic systolic hypertension. 08/16/2018-patient is euvolemic blood pressure is 129/67. Plan is to continue the present management. 08/17/2018-patient blood pressure today is 1 1 1/60. Asymptomatic. Recent echocardiogram shows EF of 25% suggesting she has chronic congestive heart failure which is systolic in nature. 08/18/2018-patient has chronic systolic left heart failure. EF is less than 25%. Patient is euvolemic. 01/2019-patient has history of chronic systolic left heart failure EF is less than 25%. Patient is euvolemic and is to continue the present management. (6) Thrombocytopenia Is this a current diagnosis for this admission?: No - Time Time Spent with patient: 15-24 minutes Medications reviewed and adjusted accordingly: Yes Anticipated discharge: Home
[2018-08-20] MEDS: LEVALBUTEROL HCL NEB 0.63 MG/3 ML AMPUL NEB SCH ×3 (08:21→19:59)
[2018-08-20] MEDS: GUAIFENESIN 600 MG TABLET.SA PO SCH ×2 (09:19→21:40)
[2018-08-20] MEDS: ASPIRIN 81 MG TABLET, CHEWABLE PO SCH (09:19)
[2018-08-20] MEDS: METOPROLOL TARTRATE 25 MG TABLET PO SCH ×2 (09:19→21:40)
[2018-08-20] MEDS: CYANOCOBALAMIN (VITAMIN B-12) 1,000 MCG TABLET PO SCH (09:20)
[2018-08-20] MEDS: POLYETHYLENE GLYCOL 3350 POWDER 17 GM/1 PACKET PO SCH (09:20)
[2018-08-20] MEDS: TIOTROPIUM BROMIDE DPI 5 CAP/KIT (18 MCG/CAP) IH SCH (09:20)
[2018-08-20] MEDS: ISOSORBIDE MONONITRATE 60 MG TAB.ER.24H PO SCH (09:20)
[2018-08-20] MEDS: LANSOPRAZOLE 30 MG TAB.RAP.DR PO SCH ×2 (09:21→16:43)
--- NOTE | 2018-08-20 11:47 | PDOC PROGRESS REPORT ---
Subjective Progress Note for:: 08/20/18 Subjective:: 08/15/2018-no acute events in the last 24 hours. Patient is comfortably in the chair. Daughter is bedside. Patient states she is going to talk to her oncologist Dr. Perla and requested him to start back on chemotherapy. She understood the side effects of the chemotherapy but still wants to go ahead. Patient is afebrile. WBC is 57,300, 2 days ago. 08/16/2018 no acute events in the last 24 hours. Patient is afebrile. Comfortably in the chair communicating very well. Denies any pain. Patient is waiting to hear from Dr. Perla about starting the chemotherapy here. Denies any nausea vomiting diarrhea or constipation today. Denies any fevers. 08/17/2018-no acute events in the last 24 hours. Patient is afebrile. I spoke to Dr. Perla he said he is far away from this hospital to come and start her on chemotherapy and is also saying he is going to be out of town from tomorrow his recommendation is for the patient to be transferred to [place] on Wednesday to start on chemotherapy there. In the meantime patient does not want to be discharged she says is too frail to go home and then go to [place], her request is to stay here in the hospital until Wednesday wants to be transferred after that , this transfer is going to be patient initiated , hope it does not violate EMTALA rules. 08/18/2018-no acute events in the last 24 hours. Patient is afebrile. No complaints concerns from the patient. She is comfortable in the chair communicating well. 08/19/2018-no acute events in the last 24 hours. Patient is afebrile. Patient is going to [facility] on Wednesday for resumption of chemotherapy. Dr. Perla is going to arrange for chemotherapy. 07/23/2018 no acute events in the last 24 hours. Patient is afebrile. Patient is going to concern him on Wednesday for chemotherapy. pt denies complaints /concerns. Reason For Visit: PNEUMONIA Physical Exam Vital Signs: Temp Pulse Resp BP Pulse Ox 97.9 F 80 16 132/54 H 96 08/20/18 07:17 08/20/18 08:21 08/20/18 08:21 08/20/18 07:17 08/20/18 08:21 Intake & Output 08/19/18 08/20/18 08/21/18 06:59 06:59 07:59 Intake Total 600 360 Balance 600 360 Weight 87.5 kg 83.2 kg General appearance: PRESENT: no acute distress Head exam: PRESENT: atraumatic Eye exam: PRESENT: PERRLA Mouth exam: PRESENT: moist, tongue midline Neck exam: ABSENT: carotid bruit, JVD, lymphadenopathy, thyromegaly Respiratory exam: PRESENT: decreased breath sounds Cardiovascular exam: PRESENT: tachycardia GI/Abdominal exam: PRESENT: normal bowel sounds, soft. ABSENT: distended, guarding, mass, organolmegaly, rebound, tenderness Extremities exam: PRESENT: full ROM. ABSENT: calf tenderness, clubbing, pedal edema Neurological exam: PRESENT: alert, awake, oriented to person, oriented to place, oriented to time, oriented to situation, CN II-XII grossly intact. ABSENT: motor sensory deficit Psychiatric exam: PRESENT: appropriate affect, normal mood. ABSENT: homicidal ideation, suicidal ideation Results Laboratory Results: 08/19/18 06:24 08/19/18 06:24 08/06/18 08/06/18 08/06/18 07:55 07:55 07:55 Creatine Kinase < 20 L CK-MB (CK-2) 0.77 Troponin I 0.092 NT-Pro-B Natriuret Pep 90018 H Impressions: Chest X-Ray 08/06/18 07:52 IMPRESSION: Asymmetric edema or pneumonia. PleurX catheter right lung. No pneumothorax. Abdomen/Pelvis CT 08/15/18 00:00 IMPRESSION: Nodular areas of pleural thickening/pleural based nodularity throughout the right hemithorax, concerning for malignancy. Posterior mediastinal as well as anterior superior mediastinal adenopathy is also noted. Soft tissue nodule in the posterior right lung base, having a solid appearance. Recommend tissue diagnosis. A small loculated right pleural effusion. Mild infrarenal abdominal aortic aneurysm. Cholelithiasis. Lobulated cystic structure in the left adnexa could reflect residual clot/postmenopausal cyst. Please refer to below recommendations for follow-up. AAA Size: Follow-up Recommendation (1): 2.6 - 2.9 cm Every 5 years (2) 3.0 - 3.4 cm Every 3 years 3.5 - 3.9 cm Every 12 months 4.0 - 4.4 cm Every 12 months, vasc consult rec 4.5 - 5.4 cm Every 6 months, vasc consult rec >=5.5 cm Referral to vascular surgeon recommended (1)Based upon the Society for Vascular Surgery Guidelines: J Vasc Surg. 2009 Mar;50(4 Suppl):S2-49 (2)For aortas of max richard of 2.6-2.9 cm that meet criteria for AAA (>= 1.5 x proximal normal segment). 2017 Fleischner Society Recommendations for Multiple Solid Lung Nodules Follow-Up base on size (average of long- and short-axis diameters). Use most suspicious nodule for followup. Nodule Size <6 mm Low-Risk Patient: No routine follow-up Nodule Size <6 mm High-Risk Patient: Optional CT at 12 months Nodule Size 6-8 mm Low-Risk Patient: CT at 3-[address] at 18-24 months Nodule Size 6-8 mm High-Risk Patient: CT at 3-6 months then at 18-24 months Nodule Size (mm) >8 Low-Risk Patient: CT at 3-6 months, then consider CT at 18-24 months Nodule Size (mm) >8 High-Risk Patient: CT at 3-6 months, then at 18-24 months . Recommendations for Probably benign adnexal cysts on CT and MR:(1)(2) (benign-appearing cysts on non IV-contrast CT or with one or more of the following complicating factors: angulated margins, not round or oval, poorly visualized such as obscured by artifact or low S/N.) Pre-menopause (<= 50 years if LMP unknown): <=3 cm: No follow-up imaging recommended >3 cm - <=5 cm: US f/u 6-12 weeks >5 cm - <=7 cm: US f/u promptly >7 cm: Consider MR w/IVC or surgical evaluation Early post-menopause (<=5 years from LMP; > 50 years to <= 55 years if LMP unknown): <=3 cm: No follow-up imaging recommended >3 cm - <=7 cm: US f/u promptly >7 cm: Consider MR w/IVC or surgical evaluation Late post-menopause (>5 years from LMP; > 55 years if LMP unknown): <=1 cm: No follow-up imaging recommended >1 cm - <=7 cm: US f/u promptly >7 cm: Consider MR w/IVC or surgical evaluation (1)Recommendations based on the 2013 ACR White Paper for Managing Incidental Adnexal Findings on Abdominal and Pelvic CT and MRI: J Am Jeff Radiol 2013;10:675-681 (2)Excludes normal/benign findings such as ovarian calcifications w/o associated non-calcified mass, corpus luteum cyst, previously characterized cyst and cyst with documented stability in size and appearance for >2 years. TECHNICAL DOCUMENTATION: Quality ID # [id number]: Final reports with documentation of one or more dose reduction techniques (e.g., Automated exposure control, adjustment of the mA and/or kV according to patient size, use of iterative reconstruction technique) copyright 2011 [employer]- All Rights Reserved Chest CT 08/15/18 00:00 IMPRESSION: Right pleural masses. Right pulmonary nodules. Right pleural effusion. Mediastinal masses. These findings are concerning for neoplasm. Recommend PET-CT. Assessment & Plan - Diagnosis (1) Pneumonia Qualifiers: Pneumonia type: due to unspecified organism Laterality: right Lung location: unspecified part of lung Qualified Code(s): J18.9 - Pneumonia, unspecified organism Is this a current diagnosis for this admission?: Yes Plan: 08/15/2018 patient is admitted for bilateral pneumonia. Most likely gram-positive cocci. Patient is afebrile. Presently not on antibiotic therapy. Dr. Rai recommended CT chest CT abdominal pelvis to rule out any occult infectious process going on. wBC count is 15,302 days ago. And is to re check labs today and tomorrow. Patient is presently on meropenem. 08/16/2018-patient was admitted for bilateral pneumonia most likely gram-positive cocci we did a CT chest yesterday shows right pleural metastasis no pneumonia was present, also found to have right pleural effusion and mediastinal masses. Looks like pneumonia is resolved. WBC count today is 43,000. High WBC most likely secondary to underlying malignancy. Presently she is not on antibiotics. 08/17/2018-WBC count is still 43,000 most likely secondary to underlying malignancy. CT chest and CT abdomen and pelvis was done there is no infection focus found. Antibiotics are discontinued. 08/18/2018-patient's WBC count today is 43,000. Most likely secondary to underlying malignancy. CT chest and abdomen ruled out any infectious process. 08/19/2018-patient's WBC count dropped to 14,000 today improved from 43,000 high WBC most likely secondary to underlying malignancy CT chest and abdomen ruled out any infectious process antibiotics are discontinued 2 days ago. 08/20/2018-patient is off the antibiotics she initially got the treatment for pneumonia most likely community-acquired pneumonia follow-up CT chest and abdomen pelvis ruled out any infectious process. Patient is afebrile. T-max is 97.9 today. (2) COPD (chronic obstructive pulmonary disease) Is this a current diagnosis for this admission?: No Plan: 08/15/2018-patient has history of COPD getting nebulizer treatments. She is off the steroids. On examination chest bilateral entry was decreased no wheezing no crepitations are present. 08/16/2018-patient has history of COPD. On examination chest bilateral entry was decreased no wheezing no crepitations. Patient is getting nebulizer treatments we will continue the present management. Patient is presently receiving albu terol inhaler, Xopenex nebulizations, Spiriva inhalation. Pulse ox on 2 L is 99%. 08/17/2018-patient has history of COPD on examination chest bilateral entry was decreased no wheezing no crepitations. Patient is on albuterol inhalation, Xopenex nebulizations, Spiriva inhalation daily. Pulse ox is 92% on 3 L. 08/18/2018-patient has history of COPD not on home oxygen. On examination chest bilateral entry was decreased no wheezing no crepitations. Pulse ox is 93% on 2 L. Plan is to continue the present management. 08/19/2018-patient has history of COPD not on home oxygen on examination no whee zing no crepitations comfortably in the chair oxygen level is 100% on 2 L. 07/23/2018-patient has history of COPD not on home oxygen. Chest bilateral entry was decreased no wheezing no crepitations. Pulse ox is 96% on room air. (3) UTI (urinary tract infection) Is this a current diagnosis for this admission?: Yes Plan: 08/15/2018-patient is presently on meropenem. Plan is to discontinue meropenem today as per ID recommendations. 08/16/2018-urine culture shows Klebsiella and pseudomonas aeruginosa on 08/06/2018 patient completed course of meropenem antibiotic therapy and it was discontinued from yesterday. 08/17/2018-urine cultures showed Klebsiella and Pseudomonas on 08/06/2018 completed the course of IV meropenem patient is afebrile T-max is 98.6. 08/18/2018-urine culture is positive for Klebsiella and Pseudomonas patient completed the course of IV meropenem she is afebrile now temperature is 97.9 today. Presently she is not on any antibiotics. 08/19/2018-urine culture shows Klebsiella Pseudomonas completed the antibiotic therapy. 08/20/2018-patient completed the antibiotic therapy for Klebsiella. (4) Stage IV small cell lung CA Is this a current diagnosis for this admission?: No Plan: 08/15/2018-patient wants to go back on chemotherapy. She wants to speak to Dr. Perla her oncologist for more than 20 years and she clearly stated on her desire to me that she wants to go back on chemotherapy. She understood the side effects of the chemotherapy. 08/16/2018-patient called Dr. Perla yesterday left a message waiting to hear from him about starting back on chemotherapy. CT chest and abdominal pelvis shows malignancy with metastasis. 08/17/2018-I spoke to Dr. Perla is planning to start chemotherapy in [facility] on Wednesday his request is to transfer the patient of the for further management. I requested the patient about possibility of discharging her today and going to [facility] on Wednesday, patient states she is too frail to be discharged , prefers to go from here to the other hospital on Wednesday with ambulance , i explained to her that transfer is going to be patient initiated because we do have the services for chemotherapy here in this hospital ,patient understood but she says Dr. Perla is her doctor and she wants to go the to get a chemotherapy under his care. 08/18/2018-patient has history of stage IV small cell lung cancer she prefers to go back on chemotherapy Dr. Perla is going to start the chemotherapy for her in [place] on Wednesday. Patient is going to [facility] Wednesday it is a patient requested transfer. 08/19/2018-patient has a stage IV lung cancer she is going to [place] on Wednesday to start the chemotherapy. 07/23/2018-patient has stage IV lung cancer she is going to [place] to start chemotherapy Dr. Perla is making the arrangements. (5) CHF (congestive heart failure) Is this a current diagnosis for this admission?: No Plan: 08/15/2018-patient history of congestive heart failure no echocardiogram report is available. Patient is euvolemic. EF is less than 25%. Most likely chronic systolic hypertension. 08/16/2018-patient is euvolemic blood pressure is 129/67. Plan is to continue the present management. 08/17/2018-patient blood pressure today is 1 1 1/60. Asymptomatic. Recent echocardiogram shows EF of 25% suggesting she has chronic congestive heart failure which is systolic in nature. 08/18/2018-patient has chronic systolic left heart failure. EF is less than 25%. Patient is euvolemic. 08/19/2018-patient has history of chronic systolic left heart failure EF is less than 25%. Patient is euvolemic and is to continue the present management. 08/20/2018 1 patient has history of chronic systolic left heart failure with EF of less than 25%. Patient is euvolemic. Plan is to continue the present management. (6) Thrombocytopenia Is this a current diagnosis for this admission?: No Plan: 08/15/2018-patient has thrombocytopenia latest platelet count is 1 36,000 improving. Cause is most likely secondary to small cell lung cancer. 08/16/2018-platelet count is 197 today thrombocytopenia is resolved. 08/17/2018-platelet count is 197 today thrombocytopenia is resolved. 08/18/2018-patient's platelet count is 197 stable. Thrombocytopenia is resolved. - Time Time Spent with patient: 15-24 minutes Medications reviewed and adjusted accordingly: Yes
[2018-08-21 06:35] LABS: HEMATOCRIT 23.2 % (36.0-47.0); MEAN CORPUSCULAR HEMOGLOBIN 30.9 pg (27.0-33.4); MEAN CORPUSCULAR HGB CONC 34.7 g/dL (32.0-36.0); MEAN CORPUSCULAR VOLUME 89 fl (80-97); PLATELET COUNT 139 10^3/uL (150-450); RED CELL DISTRIBUTION WIDTH 15.5 % (11.5-14.0); WHITE BLOOD COUNT 9.8 10^3/uL (4.0-10.5)
[2018-08-21 06:54] LABS: ALANINE AMINOTRANSFERASE 35 U/L (9-52); ALBUMIN 2.6 g/dL (3.5-5.0); ALKALINE PHOSPHATASE 86 U/L (38-126); ANION GAP 7 (5-19); ASPARTATE AMINO TRANSFERASE 41 U/L (14-36); BILIRUBIN,DIRECT 0.4 mg/dL (0.0-0.4); BILIRUBIN,TOTAL 0.5 mg/dL (0.2-1.3); BLOOD UREA NITROGEN 15 mg/dL (7-20); CALCIUM 8.2 mg/dL (8.4-10.2); CARBON DIOXIDE 24 mmol/L (22-30); CHLORIDE 100 mmol/L (98-107); POTASSIUM 4.8 mmol/L (3.6-5.0); SODIUM 130.9 mmol/L (137-145); TOTAL PROTEIN 4.6 g/dL (6.3-8.2)
[2018-08-21 07:16] LABS: GLUCOSE 66 mg/dL (75-110)
[2018-08-21 07:17] LABS: ABSOLUTE LYMPHOCYTES# (MANUAL) 1.2 10^3/uL (0.5-4.7); ABSOLUTE MONOCYTES # (MANUAL) 1.2 10^3/uL (0.1-1.4); ABSOLUTE NEUTROPHILS# (MANUAL) 7.4 10^3/uL (1.7-8.2); BAND NEUTROPHILS % (MANUAL) 2 % (3-5); BASOPHILS % (MANUAL) 1 % (0-2); EOSINOPHILS % (MANUAL) 0 % (0-6); LYMPHOCYTES % (MANUAL) 12 % (13-45); MONOCYTES % (MANUAL) 12 % (3-13); SEGMENTED NEUTROPHILS % (MAN) 73 % (42-78); TOTAL CELLS COUNTED 100; TOXIC GRANULATION 1+; TOXIC VACUOLATION PRESENT
[2018-08-21 07:18] LABS: OVALOCYTES 1+; POIKILOCYTOSIS 1+; SCHISTOCYTES SLIGHT; TEAR DROP CELLS SLIGHT
[2018-08-21 07:19] LABS: PLATELET COMMENT ADEQUATE
[2018-08-21] MEDS: LEVALBUTEROL HCL NEB 0.63 MG/3 ML AMPUL NEB SCH ×3 (08:55→20:27)
[2018-08-21] MEDS: TIOTROPIUM BROMIDE DPI 5 CAP/KIT (18 MCG/CAP) IH SCH (10:19)
[2018-08-21] MEDS: CYANOCOBALAMIN (VITAMIN B-12) 1,000 MCG TABLET PO SCH (10:19)
[2018-08-21] MEDS: METOPROLOL TARTRATE 25 MG TABLET PO SCH ×2 (10:19→21:33)
[2018-08-21] MEDS: ASPIRIN 81 MG TABLET, CHEWABLE PO SCH (10:19)
[2018-08-21] MEDS: GUAIFENESIN 600 MG TABLET.SA PO SCH ×2 (10:19→21:33)
[2018-08-21] MEDS: ISOSORBIDE MONONITRATE 60 MG TAB.ER.24H PO SCH (10:19)
[2018-08-21] MEDS: POLYETHYLENE GLYCOL 3350 POWDER 17 GM/1 PACKET PO SCH (10:20)
--- NOTE | 2018-08-21 11:13 | PDOC PROGRESS REPORT ---
Subjective Progress Note for:: 08/21/18 Subjective:: 08/15/2018-no acute events in the last 24 hours. Patient is comfortably in the chair. Daughter is bedside. Patient states she is going to talk to her oncologist Dr. Perla and requested him to start back on chemotherapy. She understood the side effects of the chemotherapy but still wants to go ahead. Patient is afebrile. WBC is 57,300, 2 days ago. 08/16/2018 no acute events in the last 24 hours. Patient is afebrile. Comfortably in the chair communicating very well. Denies any pain. Patient is waiting to hear from Dr. Perla about starting the chemotherapy here. Denies any nausea vomiting diarrhea or constipation today. Denies any fevers. 08/17/2018-no acute events in the last 24 hours. Patient is afebrile. I spoke to Dr. Perla he said he is far away from this hospital to come and start her on chemotherapy and is also saying he is going to be out of town from tomorrow his recommendation is for the patient to be transferred to [place] on Wednesday to start on chemotherapy there. In the meantime patient does not want to be discharged she says is too frail to go home and then go to [place], her request is to stay here in the hospital until Wednesday wants to be transferred after that , this transfer is going to be patient initiated , hope it does not violate EMTALA rules. 08/18/2018-no acute events in the last 24 hours. Patient is afebrile. No complaints concerns from the patient. She is comfortable in the chair communicating well. 08/19/2018-no acute events in the last 24 hours. Patient is afebrile. Patient is going to [facility] on Wednesday for resumption of chemotherapy. Dr. Perla is going to arrange for chemotherapy. 08/20/2018 no acute events in the last 24 hours. Patient is afebrile. Patient is going to concern him on Wednesday for chemotherapy. pt denies complaints /concerns. 07/24/2018-no acute events in the last 24 hours. Patient is afebrile. Comfortably in the bed. Waiting to be transferred to [place] tomorrow. no concerns expressed by the patient. Reason For Visit: PNEUMONIA Physical Exam Vital Signs: Temp Pulse Resp BP Pulse Ox 97.7 F 75 16 123/51 L 95 08/21/18 07:52 08/21/18 08:55 08/21/18 08:55 08/21/18 07:52 08/21/18 09:43 Intake & Output 08/20/18 08/21/18 08/22/18 05:59 06:59 06:59 Intake Total Output Total Balance Weight General appearance: PRESENT: no acute distress Head exam: PRESENT: atraumatic Eye exam: PRESENT: PERRLA Neck exam: ABSENT: carotid bruit, JVD, lymphadenopathy, thyromegaly Respiratory exam: PRESENT: clear to auscultation rodrigo. ABSENT: rales, rhonchi, wheezes Cardiovascular exam: PRESENT: RRR. ABSENT: diastolic murmur, rubs, systolic murmur GI/Abdominal exam: PRESENT: normal bowel sounds, soft. ABSENT: distended, guarding, mass, organolmegaly, rebound, tenderness Extremities exam: PRESENT: full ROM. ABSENT: calf tenderness, clubbing, pedal edema Neurological exam: PRESENT: alert, awake, oriented to person, oriented to place, oriented to time, oriented to situation, CN II-XII grossly intact. ABSENT: motor sensory deficit Psychiatric exam: PRESENT: appropriate affect, normal mood. ABSENT: homicidal ideation, suicidal ideation Results Laboratory Results: 08/21/18 05:20 08/21/18 05:20 08/21/18 08/21/18 05:20 05:20 WBC 9.8 RBC 2.60 L Hgb 8.0 L Hct 23.2 L MCV 89 MCH 30.9 MCHC 34.7 RDW 15.5 H Plt Count 139 L Seg Neutrophils % Not Reportable Lymphocytes % Not Reportable Monocytes % Not Reportable Eosinophils % Not Reportable Basophils % Not Reportable Absolute Neutrophils Not Reportable Absolute Lymphocytes Not Reportable Absolute Monocytes Not Reportable Absolute Eosinophils Not Reportable Absolute Basophils Not Reportable Sodium 130.9 L Potassium 4.8 Chloride 100 Carbon Dioxide 24 Anion Gap 7 BUN 15 Creatinine 0.86 Est GFR ( Amer) > 60 Est GFR (Non-Af Amer) > 60 Glucose 66 L Calcium 8.2 L Magnesium 2.3 Total Bilirubin 0.5 AST 41 H ALT 35 Alkaline Phosphatase 86 Total Protein 4.6 L Albumin 2.6 L 08/06/18 08/06/18 08/06/18 07:55 07:55 07:55 Creatine Kinase < 20 L CK-MB (CK-2) 0.77 Troponin I 0.092 NT-Pro-B Natriuret Pep [id number] H Impressions: Chest X-Ray 08/06/18 07:52 IMPRESSION: Asymmetric edema or pneumonia. PleurX catheter right lung. No pneumothorax. Abdomen/Pelvis CT 08/15/18 00:00 IMPRESSION: Nodular areas of pleural thickening/pleural based nodularity throughout the right hemithorax, concerning for malignancy. Posterior mediastinal as well as anterior superior mediastinal adenopathy is also noted. Soft tissue nodule in the posterior right lung base, having a solid appearance. Recommend tissue diagnosis. A small loculated right pleural effusion. Mild infrarenal abdominal aortic aneurysm. Cholelithiasis. Lobulated cystic structure in the left adnexa could reflect residual clot/postmenopausal cyst. Please refer to below recommendations for follow-up. AAA Size: Follow-up Recommendation (1): 2.6 - 2.9 cm Every 5 years (2) 3.0 - 3.4 cm Every 3 years 3.5 - 3.9 cm Every 12 months 4.0 - 4.4 cm Every 12 months, vasc consult rec 4.5 - 5.4 cm Every 6 months, vasc consult rec >=5.5 cm Referral to vascular surgeon recommended (1)Based upon the Society for Vascular Surgery Guidelines: J Vasc Surg. 2009 Mar;50(4 Suppl):S2-49 (2)For aortas of max richard of 2.6-2.9 cm that meet criteria for AAA (>= 1.5 x proximal normal segment). 2017 Fleischner Society Recommendations for Multiple Solid Lung Nodules Follow-Up base on size (average of long- and short-axis diameters). Use most suspicious nodule for followup. Nodule Size <6 mm Low-Risk Patient: No routine follow-up Nodule Size <6 mm High-Risk Patient: Optional CT at 12 months Nodule Size 6-8 mm Low-Risk Patient: CT at 3-[address] at 18-24 months Nodule Size 6-8 mm High-Risk Patient: CT at 3-6 months then at 18-24 months Nodule Size (mm) >8 Low-Risk Patient: CT at 3-6 months, then consider CT at 18-24 months Nodule Size (mm) >8 High-Risk Patient: CT at 3-6 months, then at 18-24 months . Recommendations for Probably benign adnexal cysts on CT and MR:(1)(2) (benign-appearing cysts on non IV-contrast CT or with one or more of the following complicating factors: angulated margins, not round or oval, poorly visualized such as obscured by artifact or low S/N.) Pre-menopause (<= 50 years if LMP unknown): <=3 cm: No follow-up imaging recommended >3 cm - <=5 cm: US f/u 6-12 weeks >5 cm - <=7 cm: US f/u promptly >7 cm: Consider MR w/IVC or surgical evaluation Early post-menopause (<=5 years from LMP; > 50 years to <= 55 years if LMP unknown): <=3 cm: No follow-up imaging recommended >3 cm - <=7 cm: US f/u promptly >7 cm: Consider MR w/IVC or surgical evaluation Late post-menopause (>5 years from LMP; > 55 years if LMP unknown): <=1 cm: No follow-up imaging recommended >1 cm - <=7 cm: US f/u promptly >7 cm: Consider MR w/IVC or surgical evaluation (1)Recommendations based on the 2013 ACR White Paper for Managing Incidental Adnexal Findings on Abdominal and Pelvic CT and MRI: J Am Jeff Radiol 2013;10:675-681 (2)Excludes normal/benign findings such as ovarian calcifications w/o associated non-calcified mass, corpus luteum cyst, previously characterized cyst and cyst with documented stability in size and appearance for >2 years. TECHNICAL DOCUMENTATION: Quality ID # [id number]: Final reports with documentation of one or more dose reduction techniques (e.g., Automated exposure control, adjustment of the mA and/or kV according to patient size, use of iterative reconstruction technique) copyright 2010 [employer]- All Rights Reserved Chest CT 08/15/18 00:00 IMPRESSION: Right pleural masses. Right pulmonary nodules. Right pleural effusion. Mediastinal masses. These findings are concerning for neoplasm. R ecommend PET-CT. Assessment & Plan - Diagnosis (1) Pneumonia Qualifiers: Pneumonia type: due to unspecified organism Laterality: right Lung location: unspecified part of lung Qualified Code(s): J18.9 - Pneumonia, unspecified organism Is this a current diagnosis for this admission?: Yes Plan: 08/15/2018 patient is admitted for bilateral pneumonia. Most likely gram-positive cocci. Patient is afebrile. Presently not on antibiotic therapy. Dr. Rai recommended CT chest CT abdominal pelvis to rule out any occult infectious process going on. wBC count is 15,302 days ago. And is to re check labs today and tomorrow. Patient is presently on meropenem. 08/16/2018-patient was admitted for bilateral pneumonia most likely gram-positive cocci we did a CT chest yesterday shows right pleural metastasis no pneumonia was present, also found to have right pleural effusion and mediastinal masses. Looks like pneumonia is resolved. WBC count today is 43,000. High WBC most likely secondary to underlying malignancy. Presently she is not on antibiotics. 08/17/2018-WBC count is still 43,000 most likely secondary to underlying malignancy. CT chest and CT abdomen and pelvis was done there is no infection focus found. Antibiotics are discontinued. 08/18/2018-patient's WBC count today is 43,000. Most likely secondary to underlying malignancy. CT chest and abdomen ruled out any infectious process. 08/19/2018-patient's WBC count dropped to 14,000 today improved from 43,000 high WBC most likely secondary to underlying malignancy CT chest and abdomen ruled out any infectious process antibiotics are discontinued 2 days ago. 08/20/2018-patient is off the antibiotics she initially got the treatment for pneumonia most likely community-acquired pneumonia follow-up CT chest and abdomen pelvis ruled out any infectious process. Patient is afebrile. T-max is 97.9 today. 08/21/2018-patient was treated for community-acquired pneumonia patient is off the antibiotics for the last several days. Patient is afebrile. Temperature is 97.7. (2) COPD (chronic obstructive pulmonary disease) Is this a current diagnosis for this admission?: No Plan: 08/15/2018-patient has history of COPD getting nebulizer treatments. She is off the steroids. On examination chest bilateral entry was decreased no wheezing no crepitations are present. 08/16/2018-patient has history of COPD. On examination chest bilateral entry was decreased no wheezing no crepitations. Patient is getting nebulizer treatments we will continue the present management. Patient is presently receiving albuterol inhaler, Xopenex nebulizations, Spiriva inhalation. Pulse ox on 2 L is 99%. 08/17/2018-patient has history of COPD on examination chest bilateral entry was decreased no wheezing no crepitations. Patient is on albuterol inhalation, Xopenex nebulizations, Spiriva inhalation daily. Pulse ox is 92% on 3 L. 08/18/2018-patient has history of COPD not on home oxygen. On examination chest bilateral entry was decreased no wheezing no crepitations. Pulse ox is 93% on 2 L. Plan is to continue the present management. 08/19/2018-patient has history of COPD not on home oxygen on examination no wheezing no crepitations comfortably in the chair oxygen level is 100% on 2 L. 08/20/2018-patient has history of COPD not on home oxygen. Chest bilateral entry was decreased no wheezing no crepitations. Pulse ox is 96% on room air. 08/21/2018-patient has history of COPD not on oxygen. Pulse ox is 94% on 2-1/2 L. If everything is set up patient go to [facility] on oxygen. (3) UTI (urinary tract infection) Is this a current diagnosis for this admission?: Yes Plan: 08/15/2018-patient is presently on meropenem. Plan is to discontinue meropenem today as per ID recommendations. 08/16/2018-urine culture shows Klebsiella and pseudomonas aeruginosa on 08/06/2018 patient completed course of meropenem antibiotic therapy and it was discontinued from yesterday. 08/17/2018-urine cultures showed Klebsiella and Pseudomonas on 08/06/2018 completed the course of IV meropenem patient is afebrile T-max is 98.6. 08/18/2018-urine culture is positive for Klebsiella and Pseudomonas patient completed the course of IV meropenem she is afebrile now temperature is 97.9 today. Presently she is not on any antibiotics. 08/19/2018-urine culture shows Klebsiella Pseudomonas completed the antibiotic therapy. 08/20/2018-patient completed the antibiotic therapy for Klebsiella. 08/21/2018-urine culture came back with Klebsiella patient is completed the antibiotic therapy she is afebrile for the last several days. (4) Stage IV small cell lung CA Is this a current diagnosis for this admission?: No Plan: 08/15/2018-patient wants to go back on chemotherapy. She wants to speak to Dr. Perla her oncologist for more than 20 years and she clearly stated on her desire to me that she wants to go back on chemotherapy. She understood the side effects of the chemotherapy. 08/16/2018-patient called Dr. Perla yesterday left a message waiting to hear from him about starting back on chemotherapy. CT chest and abdominal pelvis shows malignancy with metastasis. 08/17/2018-I spoke to Dr. Perla is planning to start chemotherapy in [facility] on Wednesday his request is to transfer the patient of the for further management. I requested the patient about possibility of discharging her today and going to [facility] on Wednesday, patient states she is too frail to be discharged , prefers to go from here to the other hospital on Wednesday with ambulance , i explained to her that transfer is going to be patient initiated because we do have the services for chemotherapy here in this hospital ,patient understood but she says Dr. Perla is her doctor and she wants to go the to get a chemotherapy under his care. 08/18/2018-patient has history of stage IV small cell lung cancer she prefers to go back on chemotherapy Dr. Perla is going to start the chemotherapy for her in [place] on Wednesday. Patient is going to [facility] Wednesday it is a patient requested transfer. 08/19/2018-patient has a stage IV lung cancer she is going to [place] on Wednesday to start the chemotherapy. 08/20/2018-patient has stage IV lung cancer she is going to [place] to start chemotherapy Dr. Perla is making the arrangements. 08/21/2018-patient has a stage IV lung cancer. She is going to restart the chemotherapy as per Dr. Perla in [facility]. I am trying to reach the hospitalist in [place] and also try to reach Dr. Perla today. (5) CHF (congestive heart failure) Is this a current diagnosis for this admission?: No Plan: 08/15/2018-patient history of congestive heart failure no echocardiogram report is available. Patient is euvolemic. EF is less than 25%. Most likely chronic systolic hypertension. 08/16/2018-patient is euvolemic blood pressure is 129/67. Plan is to continue the present management. 08/17/2018-patient blood pressure today is 1 1 1/60. Asymptomatic. Recent echocardiogram shows EF of 25% suggesting she has chronic congestive heart failure which is systolic in nature. 08/18/2018-patient has chronic systolic left heart failure. EF is less than 25%. Patient is euvolemic. 08/19/2018-patient has history of chronic systolic left heart failure EF is less than 25%. Patient is euvolemic and is to continue the present management. 08/20/2018 1 patient has history of chronic systolic left heart failure with EF of less than 25%. Patient is euvolemic. Plan is to continue the present management. 07/24/2018-patient has history of chronic systolic congestive heart failure. EF is less than 25%. Patient is not in fluid overload. Bilateral entry was decreased no crackles and crepitations at the bases. (6) Thrombocytopenia Is this a current diagnosis for this admission?: No Plan: 08/15/2018-patient has thrombocytopenia latest platelet count is 1 36,000 improvin g. Cause is most likely secondary to small cell lung cancer. 08/16/2018-platelet count is 197 today thrombocytopenia is resolved. 08/17/2018-platelet count is 197 today thrombocytopenia is resolved. 08/18/2018-patient's platelet count is 197 stable. Thrombocytopenia is resolved. 08/21/2018 platelets count is 139,000-low platelet count most likely secondary to underlying malignancy. - Time Time Spent with patient: 15-24 minutes Medications reviewed and adjusted accordingly: Yes
[2018-08-21] MEDS: LANSOPRAZOLE 30 MG TAB.RAP.DR PO SCH (17:04)
[2018-08-22] MEDS: LEVALBUTEROL HCL NEB 0.63 MG/3 ML AMPUL NEB SCH ×3 (07:49→19:45)
[2018-08-22] MEDS: ASPIRIN 81 MG TABLET, CHEWABLE PO SCH (08:26)
[2018-08-22] MEDS: ISOSORBIDE MONONITRATE 60 MG TAB.ER.24H PO SCH (08:26)
[2018-08-22] MEDS: CYANOCOBALAMIN (VITAMIN B-12) 1,000 MCG TABLET PO SCH (08:26)
[2018-08-22] MEDS: POLYETHYLENE GLYCOL 3350 POWDER 17 GM/1 PACKET PO SCH (08:27)
[2018-08-22] MEDS: LANSOPRAZOLE 30 MG TAB.RAP.DR PO SCH ×2 (08:27→17:14)
[2018-08-22] MEDS: METOPROLOL TARTRATE 25 MG TABLET PO SCH ×2 (10:03→23:10)
[2018-08-22] MEDS: GUAIFENESIN 600 MG TABLET.SA PO SCH ×2 (10:03→23:07)
[2018-08-22] MEDS: TIOTROPIUM BROMIDE DPI 5 CAP/KIT (18 MCG/CAP) IH SCH (10:04)
--- NOTE | 2018-08-22 11:50 | PDOC PROGRESS REPORT ---
Subjective Progress Note for:: 08/22/18 Subjective:: 08/15/2018-no acute events in the last 24 hours. Patient is comfortably in the chair. Daughter is bedside. Patient states she is going to talk to her oncologist Dr. ePrla and requested him to start back on chemotherapy. She understood the side effects of the chemotherapy but still wants to go ahead. Patient is afebrile. WBC is 57,300, 2 days ago. 08/16/2018 no acute events in the last 24 hours. Patient is afebrile. Comfortably in the chair communicating very well. Denies any pain. Patient is waiting to hear from Dr. Perla about starting the chemotherapy here. Denies any nausea vomiting diarrhea or constipation today. Denies any fevers. 08/17/2018-no acute events in the last 24 hours. Patient is afebrile. I spoke to Dr. Perla he said he is far away from this hospital to come and start her on chemotherapy and is also saying he is going to be out of town from tomorrow his recommendation is for the patient to be transferred to [facility] on Wednesday to start on chemotherapy there. In the meantime patient does not want to be discharged she says is too frail to go home and then go to [facility], her request is to stay here in the hospital until Wednesday wants to be transferred after that , this transfer is going to be patient initiated , hope it does not violate EMTALA rules. 08/18/2018-no acute events in the last 24 hours. Patient is afebrile. No complaints concerns from the patient. She is comfortable in the chair communicating well. 08/19/2018-no acute events in the last 24 hours. Patient is afebrile. Patient is going to [facility] on Wednesday for resumption of chemotherapy. Dr. Perla is going to arrange for chemotherapy. 08/20/2018 no acute events in the last 24 hours. Patient is afebrile. Patient is going to concern him on Wednesday for chemotherapy. pt denies complaints /concerns. 08/21/2018-no acute events in the last 24 hours. Patient is afebrile. Comfortably in the bed. Waiting to be transferred to [facility] tomorrow. no concerns expressed by the patient. 08/22/2018-no acute events in the last 24 hours. Patient is afebrile. Comfortably in the chair communicating very well. Denies any complaints concerns. I spoke to Dr. Diaz hospitalist at [facility], she accepted the patient ,I spoke to nurse in charge Kezia Yepez as per her no beds are available right now probably she will get pt bed today or tomorrow, in the meantime we will continue the present management. Reason For Visit: PNEUMONIA Physical Exam Vital Signs: Temp Pulse Resp BP Pulse Ox 98.2 F 98 22 H 104/56 L 98 08/22/18 07:51 08/22/18 07:51 08/22/18 07:51 08/22/18 07:51 08/22/18 07:51 Intake & Output 08/21/18 08/22/18 08/23/18 06:59 06:59 06:59 Intake Total 980 Output Total 600 Balance 380 Weight 83.9 kg General appearance: PRESENT: no acute distress Head exam: PRESENT: atraumatic Eye exam: PRESENT: PERRLA Neck exam: ABSENT: carotid bruit, JVD, lymphadenopathy, thyromegaly Respiratory exam: PRESENT: clear to auscultation rodrigo. ABSENT: rales, rhonchi, wheezes Cardiovascular exam: PRESENT: RRR. ABSENT: diastolic murmur, rubs, systolic murmur GI/Abdominal exam: PRESENT: normal bowel sounds, soft. ABSENT: distended, guarding, mass, organolmegaly, rebound, tenderness Extremities exam: PRESENT: full ROM. ABSENT: calf tenderness, clubbing, pedal edema Neurological exam: PRESENT: alert, awake, oriented to person, oriented to place, oriented to time, oriented to situation, CN II-XII grossly intact. ABSENT: motor sensory deficit Psychiatric exam: PRESENT: appropriate affect, normal mood. ABSENT: homicidal ideation, suicidal ideation Results Laboratory Results: 08/21/18 05:20 08/21/18 05:20 08/06/18 08/06/18 08/06/18 07:55 07:55 07:55 Creatine Kinase < 20 L CK-MB (CK-2) 0.77 Troponin I 0.092 NT-Pro-B Natriuret Pep [id number] H Impressions: Chest X-Ray 08/06/18 07:52 IMPRESSION: Asymmetric edema or pneumonia. PleurX catheter right lung. No pneumothorax. Abdomen/Pelvis CT 08/15/18 00:00 IMPRESSION: Nodular areas of pleural thickening/pleural based nodularity throughout the right hemithorax, concerning for malignancy. Posterior mediastinal as well as anterior superior mediastinal adenopathy is also noted. Soft tissue nodule in the posterior right lung base, having a solid appearance. Recommend tissue diagnosis. A small loculated right pleural effusion. Mild infrarenal abdominal aortic aneurysm. Cholelithiasis. Lobulated cystic structure in the left adnexa could reflect residual clot/postmenopausal cyst. Please refer to below recommendations for follow-up. AAA Size: Follow-up Recommendation (1): 2.6 - 2.9 cm Every 5 years (2) 3.0 - 3.4 cm Every 3 years 3.5 - 3.9 cm Every 12 months 4.0 - 4.4 cm Every 12 months, vasc consult rec 4.5 - 5.4 cm Every 6 months, vasc consult rec >=5.5 cm Referral to vascular surgeon recommended (1)Based upon the Society for Vascular Surgery Guidelines: J Vasc Surg. 2009 Mar;50(4 Suppl):S2-49 (2)For aortas of max richard of 2.6-2.9 cm that meet criteria for AAA (>= 1.5 x proximal normal segment). 2017 Fleischner Society Recommendations for Multiple Solid Lung Nodules Follow-Up base on size (average of long- and short-axis diameters). Use most suspicious nodule for followup. Nodule Size <6 mm Low-Risk Patient: No routine follow-up Nodule Size <6 mm High-Risk Patient: Optional CT at 12 months Nodule Size 6-8 mm Low-Risk Patient: CT at 3-[address] at 18-24 months Nodule Size 6-8 mm High-Risk Patient: CT at 3-6 months then at 18-24 months Nodule Size (mm) >8 Low-Risk Patient: CT at 3-6 months, then consider CT at 18-24 months Nodule Size (mm) >8 High-Risk Patient: CT at 3-6 months, then at 18-24 months . Recommendations for Probably benign adnexal cysts on CT and MR:(1)(2) (benign-appearing cysts on non IV-contrast CT or with one or more of the following complicating factors: angulated margins, not round or oval, poorly visualized such as obscured by artifact or low S/N.) Pre-menopause (<= 50 years if LMP unknown): <=3 cm: No follow-up imaging recommended >3 cm - <=5 cm: US f/u 6-12 weeks >5 cm - <=7 cm: US f/u promptly >7 cm: Consider MR w/IVC or surgical evaluation Early post-menopause (<=5 years from LMP; > 50 years to <= 55 years if LMP unknown): <=3 cm: No follow-up imaging recommended >3 cm - <=7 cm: US f/u promptly >7 cm: Consider MR w/IVC or surgical evaluation Late post-menopause (>5 years from LMP; > 55 years if LMP unknown): <=1 cm: No follow-up imaging recommended >1 cm - <=7 cm: US f/u promptly >7 cm: Consider MR w/IVC or surgical evaluation (1)Recommendations based on the 2013 ACR White Paper for Managing Incidental Adnexal Findings on Abdominal and Pelvic CT and MRI: J Am Jeff Radiol 2013;10:675-681 (2)Excludes normal/benign findings such as ovarian calcifications w/o associated non-calcified mass, corpus luteum cyst, previously characterized cyst and cyst with documented stability in size and appearance for >2 years. TECHNICAL DOCUMENTATION: Quality ID # [id number]: Final reports with documentation of one or more dose reduction techniques (e.g., Automated exposure control, adjustment of the mA and/or kV according to patient size, use of iterative reconstruction technique) copyright 2011 [email or web address]- All Rights Reserved Chest CT 08/15/18 00:00 IMPRESSION: Right pleural masses. Right pulmonary nodules. Right pleural effusion. Mediastinal masses. These findings are concerning for neoplasm. Recommend PET-CT. Assessment & Plan - Diagnosis (1) Stage IV small cell lung CA Is this a current diagnosis for this admission?: No Plan: 08/15/2018-patient wants to go back on chemotherapy. She wants to speak to Dr. Perla her oncologist for more than 20 years and she clearly stated on her desire to me that she wants to go back on chemotherapy. She understood the side effects of the chemotherapy. 08/16/2018-patient called Dr. Perla yesterday left a message waiting to hear from him about starting back on chemotherapy. CT chest and abdominal pelvis shows malignancy with metastasis. 08/17/2018-I spoke to Dr. Perla is planning to start chemotherapy in [facility] on Wednesday his request is to transfer the patient of the for further management. I requested the patient about possibility of discharging her today and going to [facility] on Wednesday, patient states she is too frail to be discharged , prefers to go from here to the other hospital on Wednesday with ambulance , i explained to her that transfer is going to be patient initiated because we do have the services for chemotherapy here in this hospital ,patient understood but she says Dr. Perla is her doctor and she wants to go the to get a chemotherapy under his care. 08/18/2018-patient has history of stage IV small cell lung cancer she prefers to go back on chemotherapy Dr. Perla is going to start the chemotherapy for her in [place] on Wednesday. Patient is going to [facility] Wednesday it is a patient requested transfer. 08/19/2018-patient has a stage IV lung cancer she is going to [facility] on Wednesday to start the chemotherapy. 08/20/2018-patient has stage IV lung cancer she is going to [facility] to start chemotherapy Dr. Perla is making the arrangements. 08/21/2018-patient has a stage IV lung cancer. She is going to restart the chemotherapy as per Dr. Perla in [facility]. I am trying to reach the hospitalist in [place] and also try to reach Dr. Perla today. 08/22/2018-patient has a stage IV lung cancer she had a history of right mastectomy, CT scan shows metastasis to the pleura patient's prefers to continue chemotherapy I got in touch with Dr. Perla he wants to start chemotherapy today in [facility] but unfortunately we do not have any beds available right now probably patient may go to [facility] tomorrow. (2) Pneumonia Qualifiers: Pneumonia type: due to unspecified organism Laterality: right Lung location: unspecified part of lung Qualified Code(s): J18.9 - Pneumonia, unspecified organism Is this a current diagnosis for this admission?: Yes Plan: 08/15/2018 patient is admitted for bilateral pneumonia. Most likely gram-positive cocci. Patient is afebrile. Presently not on antibiotic therapy. Dr. Rai recommended CT chest CT abdominal pelvis to rule out any occult infectious process going on. wBC count is 15,302 days ago. And is to re check labs today and tomorrow. Patient is presently on meropenem. 08/16/2018-patient was admitted for bilateral pneumonia most likely gram-positive cocci we did a CT chest yesterday shows right pleural metastasis no pneumonia was present, also found to have right pleural effusion and mediastinal masses. Looks like pneumonia is resolved. WBC count today is 43,000. High WBC most likely secondary to underlying malignancy. Presently she is not on antibiotics. 08/17/2018-WBC count is still 43,000 most likely secondary to underlying malignancy. CT chest and CT abdomen and pelvis was done there is no infection focus found. Antibiotics are discontinued. 08/18/2018-patient's WBC count today is 43,000. Most likely secondary to underlying malignancy. CT chest and abdomen ruled out any infectious process. 08/19/2018-patient's WBC count dropped to 14,000 today improved from 43,000 high WBC most likely secondary to underlying malignancy CT chest and abdomen ruled out any infectious process antibiotics are discontinued 2 days ago. 08/20/2018-patient is off the antibiotics she initially got the treatment for pneu monia most likely community-acquired pneumonia follow-up CT chest and abdomen pelvis ruled out any infectious process. Patient is afebrile. T-max is 97.9 today. 08/21/2018-patient was treated for community-acquired pneumonia patient is off the antibiotics for the last several days. Patient is afebrile. Temperature is 97.7. 08/22/2018 88-year-old female came in with community-acquired pneumonia treated with appropriate antibiotics pneumonia is resolved. (3) COPD (chronic obstructive pulmonary disease) Is this a current diagnosis for this admission?: No Plan: 08/15/2018-patient has history of COPD getting nebulizer treatments. She is off the steroids. On examination chest bilateral entry was decreased no wheezing no crepitations are present. 08/16/2018-patient has history of COPD. On examination chest bilateral entry was decreased no wheezing no crepitations. Patient is getting nebulizer treatments we will continue the present management. Patient is presently receiving albuterol inhaler, Xopenex nebulizations, Spiriva inhalation. Pulse ox on 2 L is 99%. 08/17/2018-patient has history of COPD on examination chest bilateral entry was decreased no wheezing no crepitations. Patient is on albuterol inhalation, Xopenex nebulizations, Spiriva inhalation daily. Pulse ox is 92% on 3 L. 08/18/2018-patient has history of COPD not on home oxygen. On examination chest bilateral entry was decreased no wheezing no crepitations. Pulse ox is 93% on 2 L. Plan is to continue the present management. 08/19/2018-patient has history of COPD not on home oxygen on examination no wheezing no crepitations comfortably in the chair oxygen level is 100% on 2 L. 08/20/2018-patient has history of COPD not on home oxygen. Chest bilateral entry was decreased no wheezing no crepitations. Pulse ox is 96% on room air. 08/21/2018-patient has history of COPD not on oxygen. Pulse ox is 94% on 2-1/2 L. If everything is set up patient go to [facility] on oxygen. 08/22/2018-patient has history of COPD pulse ox is 98% today liters of oxygen plan is to continue the present management. (4) UTI (urinary tract infection) Is this a current diagnosis for this admission?: Yes Plan: 08/15/2018-patient is presently on meropenem. Plan is to discontinue meropenem today as per ID recommendations. 08/16/2018-urine culture shows Klebsiella and pseudomonas aeruginosa on 08/06/2018 patient completed course of meropenem antibiotic therapy and it was discontinued from yesterday. 08/17/2018-urine cultures showed Klebsiella and Pseudomonas on 08/06/2018 completed the course of IV meropenem patient is afebrile T-max is 98.6. 08/18/2018-urine culture is positive for Klebsiella and Pseudomonas patient completed the course of IV meropenem she is afebrile now temperature is 97.9 today. Presently she is not on any antibiotics. 08/19/2018-urine culture shows Klebsiella Pseudomonas completed the antibiotic therapy. 08/20/2018-patient completed the antibiotic therapy for Klebsiella. 08/21/2018-urine culture came back with Klebsiella patient is completed the antibiotic therapy she is afebrile for the last several days. 08/22/2018-patient was treated for UTI with Klebsiella. Completed the course of antibiotic therapy patient is afebrile for the last several days. (5) CHF (congestive heart failure) Is this a current diagnosis for this admission?: No Plan: 08/15/2018-patient history of congestive heart failure no echocardiogram report is available. Patient is euvolemic. EF is less than 25%. Most likely chronic systolic hypertension. 08/16/2018-patient is euvolemic blood pressure is 129/67. Plan is to continue the present management. 08/17/2018-patient blood pressure today is 1 1 1/60. Asymptomatic. Recent echocardiogram shows EF of 25% suggesting she has chronic congestive heart fail ure which is systolic in nature. 08/18/2018-patient has chronic systolic left heart failure. EF is less than 25%. Patient is euvolemic. 08/19/2018-patient has history of chronic systolic left heart failure EF is less than 25%. Patient is euvolemic and is to continue the present management. 08/20/2018 1 patient has history of chronic systolic left heart failure with EF of less than 25%. Patient is euvolemic. Plan is to continue the present management. 08/21/2018-patient has history of chronic systolic congestive heart failure. EF is less than 25%. Patient is not in fluid overload. Bilateral entry was decreased no crackles and crepitations at the bases. 08/22/2018-patient is not in fluid overload patient has a chronic systolic heart failure with EF of 25%. plan is to continue the present management. (6) Thrombocytopenia Is this a current diagnosis for this admission?: No Plan: 08/15/2018-patient has thrombocytopenia latest platelet count is 1 36,000 improving. Cause is most likely secondary to small cell lung cancer. 08/16/2018-platelet count is 197 today thrombocytopenia is resolved. 08/17/2018-platelet count is 197 today thrombocytopenia is resolved. 08/18/2018-patient's platelet count is 197 stable. Thrombocytopenia is resolved. 08/21/2018 platelets count is 139,000-low platelet count most likely secondary to underlying malignancy. 08/22/2018-patient platelet count is 1 39,000 low blood count is most likely secondary to underlying malignancy with metastases. - Time Time Spent with patient: 15-24 minutes Medications reviewed and adjusted accordingly: Yes Anticipated discharge: Other - Patient is going to [facility] when bed is available
[2018-08-23] MEDS: LANSOPRAZOLE 30 MG TAB.RAP.DR PO SCH ×2 (05:38→17:14)
[2018-08-23] MEDS: ISOSORBIDE MONONITRATE 60 MG TAB.ER.24H PO SCH (08:12)
[2018-08-23] MEDS: ASPIRIN 81 MG TABLET, CHEWABLE PO SCH (08:12)
[2018-08-23] MEDS: CYANOCOBALAMIN (VITAMIN B-12) 1,000 MCG TABLET PO SCH (08:12)
[2018-08-23] MEDS: LEVALBUTEROL HCL NEB 0.63 MG/3 ML AMPUL NEB SCH ×3 (08:37→19:57)
[2018-08-23] MEDS: METOPROLOL TARTRATE 25 MG TABLET PO SCH ×2 (10:33→23:20)
[2018-08-23] MEDS: GUAIFENESIN 600 MG TABLET.SA PO SCH ×2 (10:33→23:21)
[2018-08-23] MEDS: TIOTROPIUM BROMIDE DPI 5 CAP/KIT (18 MCG/CAP) IH SCH (10:35)
[2018-08-23] MEDS: POLYETHYLENE GLYCOL 3350 POWDER 17 GM/1 PACKET PO SCH (10:35)
--- NOTE | 2018-08-23 14:30 | PDOC PROGRESS REPORT ---
Subjective Progress Note for:: 08/23/18 Subjective:: This is an 88 yr old female with a PMH of extensive stage 4 small cell lung cancer, prior pneumonectomy, COPD, right breast CA with prior right mastectomy, recurrnet pleural effusion S/P Pleur X cath placement, hypertension, CAD with prior stenting and CHF with EF of 25% who was presented with increasing SOB and was admitted for possible pneumonia. She was started on antibiotics and steroids. She did have improvement but also expressed she wanted to be resumed on chemotherapy. Patient requested to be transferred to [facility] to be managed by her oncologist. Previous provider has discussed with patient's oncologist, Dr. Perla at [facility] who has recommended transferring patient to their hospital to initiate inpatient chemo. She has been accepted there apparently and is just awaiting bed placement. No acute event in the interim. She denies worsneing SOB or chest pain. Still awaiting for bed availability at [facility]. Reason For Visit: PNEUMONIA Physical Exam Vital Signs: Temp Pulse Resp BP Pulse Ox 98.0 F 83 16 128/56 H 95 08/23/18 07:36 08/23/18 14:00 08/23/18 13:50 08/23/18 07:36 08/23/18 13:50 Intake & Output 08/22/18 08/23/18 08/24/18 06:59 06:59 06:59 Intake Total 980 1121 330 Output Total 600 550 150 Balance 380 571 180 Weight 184 lb 15.485 oz 188 lb 4.396 oz General appearance: PRESENT: no acute distress, well-developed, well-nourished Head exam: PRESENT: atraumatic, normocephalic Eye exam: PRESENT: conjunctiva pink, EOMI, PERRLA. ABSENT: scleral icterus Ear exam: PRESENT: normal external ear exam Mouth exam: PRESENT: moist, tongue midline Neck exam: ABSENT: carotid bruit, JVD, lymphadenopathy, thyromegaly Respiratory exam: PRESENT: rhonchi. ABSENT: rales, wheezes Cardiovascular exam: PRESENT: RRR. ABSENT: diastolic murmur, rubs, systolic murmur Pulses: PRESENT: normal dorsalis pedis pul GI/Abdominal exam: PRESENT: normal bowel sounds, soft. ABSENT: distended, guarding, mass, organolmegaly, rebound, tenderness Rectal exam: PRESENT: deferred Neurological exam: PRESENT: alert, awake, oriented to person, oriented to place, oriented to time, oriented to situation, CN II-XII grossly intact. ABSENT: motor sensory deficit Results Laboratory Results: 08/21/18 05:20 08/21/18 05:20 08/06/18 08/06/18 08/06/18 07:55 07:55 07:55 Creatine Kinase < 20 L CK-MB (CK-2) 0.77 Troponin I 0.092 NT-Pro-B Natriuret Pep [id number] H Impressions: Chest X-Ray 08/06/18 07:52 IMPRESSION: Asymmetric edema or pneumonia. PleurX catheter right lung. No pneumothorax. Abdomen/Pelvis CT 08/15/18 00:00 IMPRESSION: Nodular areas of pleural thickening/pleural based nodularity throughout the right hemithorax, concerning for malignancy. Posterior mediastinal as well as anterior superior mediastinal adenopathy is also noted. Soft tissue nodule in the posterior right lung base, having a solid appearance. Recommend tissue diagnosis. A small loculated right pleural effusion. Mild infrarenal abdominal aortic aneurysm. Cholelithiasis. Lobulated cystic structure in the left adnexa could reflect residual clot/postmenopausal cyst. Please refer to below recommendations for follow-up. AAA Size: Follow-up Recommendation (1): 2.6 - 2.9 cm Every 5 years (2) 3.0 - 3.4 cm Every 3 years 3.5 - 3.9 cm Every 12 months 4.0 - 4.4 cm Every 12 months, vasc consult rec 4.5 - 5.4 cm Every 6 months, vasc consult rec >=5.5 cm Referral to vascular surgeon recommended (1)Based upon the Society for Vascular Surgery Guidelines: J Vasc Surg. 2009 Mar;50(4 Suppl):S2-49 (2)For aortas of max richard of 2.6-2.9 cm that meet criteria for AAA (>= 1.5 x proximal normal segment). 2017 Fleischner Society Recommendations for Multiple Solid Lung Nodules Follow-Up base on size (average of long- and short-axis diameters). Use most suspicious nodule for followup. Nodule Size <6 mm Low-Risk Patient: No routine follow-up Nodule Size <6 mm High-Risk Patient: Optional CT at 12 months Nodule Size 6-8 mm Low-Risk Patient: CT at 3-[address] at 18-24 months Nodule Size 6-8 mm High-Risk Patient: CT at 3-6 months then at 18-24 months Nodule Size (mm) >8 Low-Risk Patient: CT at 3-6 months, then consider CT at 18-24 months Nodule Size (mm) >8 High-Risk Patient: CT at 3-6 months, then at 18-24 months . Recommendations for Probably benign adnexal cysts on CT and MR:(1)(2) (benign-appearing cysts on non IV-contrast CT or with one or more of the following complicating factors: angulated margins, not round or oval, poorly visualized such as obscured by artifact or low S/N.) Pre-menopause (<= 50 years if LMP unknown): <=3 cm: No follow-up imaging recommended >3 cm - <=5 cm: US f/u 6-12 weeks >5 cm - <=7 cm: US f/u promptly >7 cm: Consider MR w/IVC or surgical evaluation Early post-menopause (<=5 years from LMP; > 50 years to <= 55 years if LMP unknown): <=3 cm: No follow-up imaging recommended >3 cm - <=7 cm: US f/u promptly >7 cm: Consider MR w/IVC or surgical evaluation Late post-menopause (>5 years from LMP; > 55 years if LMP unknown): <=1 cm: No follow-up imaging recommended >1 cm - <=7 cm: US f/u promptly >7 cm: Consider MR w/IVC or surgical evaluation (1)Recommendations based on the 2013 ACR White Paper for Managing Incidental Adnexal Findings on Abdominal and Pelvic CT and MRI: J Am Jeff Radiol 2013;10:675-681 (2)Excludes normal/benign findings such as ovarian calcifications w/o associated non-calcified mass, corpus luteum cyst, previously characterized cyst and cyst with documented stability in size and appearance for >2 years. TECHNICAL DOCUMENTATION: Quality ID # [id number]: Final reports with documentation of one or more dose reduction techniques (e.g., Automated exposure control, adjustment of the mA and/or kV according to patient size, use of iterative reconstruction technique) copyright 2011 [employer]- All Rights Reserved Chest CT 08/15/18 00:00 IMPRESSION: Right pleural masses. Right pulmonary nodules. Right pleural effusion. Mediastinal masses. These findings are concerning for neoplasm. Recommend PET-CT. Assessment & Plan - Diagnosis (1) Stage IV small cell lung CA Is this a current diagnosis for this admission?: Yes Plan: Awaiting transfer to [facility]. (2) Pneumonia Is this a current diagnosis for this admission?: Yes Plan: Completed antibiotic therapy. Sputum culture was negative. (3) UTI (urinary tract infection) Is this a current diagnosis for this admission?: Yes Plan: Urine culture grew Klebsiella and pseudomonas. Completed antibiotics. (4) COPD (chronic obstructive pulmonary disease) Is this a current diagnosis for this admission?: Yes Plan: Steroids discontinued. Currently not in exacerbation. Breathing treatments as needed. - Time Time Spent with patient: 15-24 minutes
[2018-08-24] MEDS: LANSOPRAZOLE 30 MG TAB.RAP.DR PO SCH (05:33)
[2018-08-24 05:58] LABS: ANION GAP 5 (5-19); BLOOD UREA NITROGEN 12 mg/dL (7-20); CALCIUM 8.5 mg/dL (8.4-10.2); CARBON DIOXIDE 26 mmol/L (22-30); CHLORIDE 102 mmol/L (98-107); GLUCOSE 81 mg/dL (75-110); POTASSIUM 4.6 mmol/L (3.6-5.0); SODIUM 132.7 mmol/L (137-145)
[2018-08-24 07:45] LABS: HEMATOCRIT 20.4 % (36.0-47.0); MEAN CORPUSCULAR HGB CONC 34.5 g/dL (32.0-36.0); MEAN CORPUSCULAR VOLUME 90 fl (80-97); PLATELET COUNT 151 10^3/uL (150-450); RED BLOOD COUNT 2.28 10^6/uL (3.72-5.28); WHITE BLOOD COUNT 6.3 10^3/uL (4.0-10.5)
[2018-08-24 07:58] LABS: HEMOGLOBIN 7.1 g/dL (12.0-15.5)
[2018-08-24 08:15] LABS: ABSOLUTE LYMPHOCYTES# (MANUAL) 1.1 10^3/uL (0.5-4.7); ABSOLUTE MONOCYTES # (MANUAL) 0.4 10^3/uL (0.1-1.4); ABSOLUTE NEUTROPHILS# (MANUAL) 4.7 10^3/uL (1.7-8.2); BAND NEUTROPHILS % (MANUAL) 1 % (3-5); BASOPHILS % (MANUAL) 0 % (0-2); EOSINOPHILS % (MANUAL) 1 % (0-6); LYMPHOCYTES % (MANUAL) 18 % (13-45); METAMYELOCYTES % (MANUAL) 1 % (0); MONOCYTES % (MANUAL) 6 % (3-13); MYELOCYTES % (MANUAL) 1 % (0); SEGMENTED NEUTROPHILS % (MAN) 72 % (42-78); TOTAL CELLS COUNTED 100
[2018-08-24 08:16] LABS: PLATELET COMMENT ADEQUATE
[2018-08-24 08:19] LABS: ANISOCYTOSIS 1+; POIKILOCYTOSIS SLIGHT; POLYCHROMASIA SLIGHT
[2018-08-24] MEDS: LEVALBUTEROL HCL NEB 0.63 MG/3 ML AMPUL NEB SCH ×3 (08:27→19:48)
[2018-08-24] MEDS: ISOSORBIDE MONONITRATE 60 MG TAB.ER.24H PO SCH (08:49)
[2018-08-24] MEDS: ASPIRIN 81 MG TABLET, CHEWABLE PO SCH (08:49)
[2018-08-24] MEDS: POLYETHYLENE GLYCOL 3350 POWDER 17 GM/1 PACKET PO SCH (08:49)
[2018-08-24] MEDS: CYANOCOBALAMIN (VITAMIN B-12) 1,000 MCG TABLET PO SCH (08:54)
[2018-08-24] MEDS: GUAIFENESIN 600 MG TABLET.SA PO SCH ×2 (10:16→22:21)
[2018-08-24] MEDS: METOPROLOL TARTRATE 25 MG TABLET PO SCH ×2 (10:20→22:20)
[2018-08-24 12:04] LABS: HEMATOCRIT 23.2 % (36.0-47.0); MEAN CORPUSCULAR HEMOGLOBIN 30.4 pg (27.0-33.4); MEAN CORPUSCULAR HGB CONC 34.1 g/dL (32.0-36.0); MEAN CORPUSCULAR VOLUME 89 fl (80-97); PLATELET COUNT 152 10^3/uL (150-450); RED CELL DISTRIBUTION WIDTH 15.6 % (11.5-14.0); WHITE BLOOD COUNT 7.9 10^3/uL (4.0-10.5)
[2018-08-24 12:08] LABS: HEMOGLOBIN 7.9 g/dL (12.0-15.5)
[2018-08-24] MEDS: TIOTROPIUM BROMIDE DPI 5 CAP/KIT (18 MCG/CAP) IH SCH (12:16)
--- NOTE | 2018-08-24 15:21 | PDOC PROGRESS REPORT ---
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 She was started on antibiotics and steroids. She did have improvement but also expressed she wanted to be resumed on chemotherapy. Patient requested to be transferred to [place] to be managed by her oncologist. Previous provider has discussed with patient's oncologist, Dr. Perla at [place] who has recommended transferring patient to their hospital to initiate inpatient chemo. She has been accepted there apparently and is just awaiting bed placement. No acute event in the interim. She denies worsening SOB or chest pain. Still awaiting for bed availability at [facility]. 08/24: No acute event overnight. Her Hb dropped to 7.1 this morning. No clinical signs or symptoms of bleeding. Rediscussed goals of care in length with patient and patient's daughters in length today. Her daughters opined that it really is appropriate for patient to be on hospice. Redicussed goals of hospice and rediscussed recent imaging results with patient and family. Patient expressed she really wants to pursue chemotherapy offered by Dr. Perla at [place] [facility] even though there is only a small potential of it "possibly delaying the progression of metastatic disease" but not necessarily prolonging survival. She verbalizes she had tolerated her multiple chemotherapies before and is really determined to give it another try. Explained she could pursue this treatment as outpatient if we won't get a bed at [facility] today. Will recheck hemoglobin today. If she won't get a bed today at the receiving hospital, patient and daughters are amenable for her to be discharged tomorrow morning and they will schedule the chemo as outpatient. Reason For Visit: PNEUMONIA Physical Exam Vital Signs: Temp Pulse Resp BP Pulse Ox 98.2 F 80 16 124/50 L 96 08/24/18 08:20 08/24/18 08:30 08/24/18 08:30 08/24/18 09:02 08/24/18 08:30 Intake & Output 08/23/18 08/24/18 08/25/18 06:59 06:59 06:59 Intake Total 1121 1240 Output Total 550 150 Balance 571 1090 Weight 188 lb 4.396 oz 176 lb 12.972 oz General appearance: PRESENT: no acute distress, well-developed, well-nourished Head exam: PRESENT: atraumatic, normocephalic Eye exam: PRESENT: conjunctiva pink, EOMI, PERRLA. ABSENT: scleral icterus Ear exam: PRESENT: normal external ear exam Mouth exam: PRESENT: moist, tongue midline Neck exam: ABSENT: carotid bruit, JVD, lymphadenopathy, thyromegaly Respiratory exam: PRESENT: rhonchi. ABSENT: rales, wheezes Cardiovascular exam: PRESENT: RRR. ABSENT: diastolic murmur, rubs, systolic murmur Pulses: PRESENT: normal dorsalis pedis pul GI/Abdominal exam: PRESENT: normal bowel sounds, soft. ABSENT: distended, guarding, mass, organolmegaly, rebound, tenderness Rectal exam: PRESENT: deferred Neurological exam: PRESENT: alert, awake, oriented to person, oriented to place, oriented to time, oriented to situation, CN II-XII grossly intact. ABSENT: motor sensory deficit Results Laboratory Results: 08/24/18 11:53 08/24/18 04:57 08/24/18 08/24/18 08/24/18 04:57 07:27 11:53 WBC 6.3 7.9 RBC 2.28 L 2.60 L Hgb 7.1 L 7.9 L Hct 20.4 L 23.2 L MCV 90 89 MCH 31.0 30.4 MCHC 34.5 34.1 RDW 16.0 H 15.6 H Plt Count 151 152 Seg Neutrophils % Not Reportable Lymphocytes % Not Reportable Monocytes % Not Reportable Eosinophils % Not Reportable Basophils % Not Reportable Absolute Neutrophils Not Reportable Absolute Lymphocytes Not Reportable Absolute Monocytes Not Reportable Absolute Eosinophils Not Reportable Absolute Basophils Not Reportable Sodium 132.7 L Potassium 4.6 Chloride 102 Carbon Dioxide 26 Anion Gap 5 BUN 12 Creatinine 0.89 Est GFR ( Amer) > 60 Est GFR (Non-Af Amer) > 60 Glucose 81 Calcium 8.5 08/06/18 08/06/18 08/06/18 07:55 07:55 07:55 Creatine Kinase < 20 L CK-MB (CK-2) 0.77 Troponin I 0.092 NT-Pro-B Natriuret Pep 13240 H Impressions: Chest X-Ray 08/06/18 07:52 IMPRESSION: Asymmetric edema or pneumonia. PleurX catheter right lung. No pneumothorax. Abdomen/Pelvis CT 08/15/18 00:00 IMPRESSION: Nodular areas of pleural thickening/pleural based nodularity throughout the right hemithorax, concerning for malignancy. Posterior mediastinal as well as anterior superior mediastinal adenopathy is also noted. Soft tissue nodule in the posterior right lung base, having a solid appearance. Recommend tissue diagnosis. A small loculated right pleural effusion. Mild infrarenal abdominal aortic aneurysm. Cholelithiasis. Lobulated cystic structure in the left adnexa could reflect residual clot/postmenopausal cyst. Please refer to below recommendations for follow-up. AAA Size: Follow-up Recommendation (1): 2.6 - 2.9 cm Every 5 years (2) 3.0 - 3.4 cm Every 3 years 3.5 - 3.9 cm Every 12 months 4.0 - 4.4 cm Every 12 months, vasc consult rec 4.5 - 5.4 cm Every 6 months, vasc consult rec >=5.5 cm Referral to vascular surgeon recommended (1)Based upon the Society for Vascular Surgery Guidelines: J Vasc Surg. 2009 Mar;50(4 Suppl):S2-49 (2)For aortas of max richard of 2.6-2.9 cm that meet criteria for AAA (>= 1.5 x proximal normal segment). 2017 Fleischner Society Recommendations for Multiple Solid Lung Nodules Follow-Up base on size (average of long- and short-axis diameters). Use most suspicious nodule for followup. Nodule Size <6 mm Low-Risk Patient: No routine follow-up Nodule Size <6 mm High-Risk Patient: Optional CT at 12 months Nodule Size 6-8 mm Low-Risk Patient: CT at 3-[address] at 18-24 months Nodule Size 6-8 mm High-Risk Patient: CT at 3-6 months then at 18-24 months Nodule Size (mm) >8 Low-Risk Patient: CT at 3-6 months, then consider CT at 18-24 months Nodule Size (mm) >8 High-Risk Patient: CT at 3-6 months, then at 18-24 months . Recommendations for Probably benign adnexal cysts on CT and MR:(1)(2) (benign-appearing cysts on non IV-contrast CT or with one or more of the following complicating factors: angulated margins, not round or oval, poorly visualized such as obscured by artifact or low S/N.) Pre-menopause (<= 50 years if LMP unknown): <=3 cm: No follow-up imaging recommended >3 cm - <=5 cm: US f/u 6-12 weeks >5 cm - <=7 cm: US f/u promptly >7 cm: Consider MR w/IVC or surgical evaluation Early post-menopause (<=5 years from LMP; > 50 years to <= 55 years if LMP unknown): <=3 cm: No follow-up imaging recommended >3 cm - <=7 cm: US f/u promptly >7 cm: Consider MR w/IVC or surgical evaluation Late post-menopause (>5 years from LMP; > 55 years if LMP unknown): <=1 cm: No follow-up imaging recommended >1 cm - <=7 cm: US f/u promptly >7 cm: Consider MR w/IVC or surgical evaluation (1)Recommendations based on the 2013 ACR White Paper for Managing Incidental Adnexal Findings on Abdominal and Pelvic CT and MRI: J Am Jeff Radiol 2013;10:675-681 (2)Excludes normal/benign findings such as ovarian calcifications w/o associated non-calcified mass, corpus luteum cyst, previously characterized cyst and cyst with documented stability in size and appearance for >2 years. TECHNICAL DOCUMENTATION: Quality ID # [id number]: Final reports with documentation of one or more dose reduction techniques (e.g., Automated exposure control, adjustment of the mA and/or kV according to patient size, use of iterative reconstruction technique) copyright 2011 [employer]- All Rights Reserved Chest CT 08/15/18 00:00 IMPRESSION: Right pleural masses. Right pulmonary nodules. Right pleural effusion. Mediastinal masses. These findings are concerning for neoplasm. Recommend PET-CT. Assessment & Plan - Diagnosis (1) Stage IV small cell lung CA Is this a current diagnosis for this admission?: Yes Plan: Awaiting transfer to [place]. 08/25: No acute event overnight. Her Hb dropped to 7.1 this morning. No clinical signs or symptoms of bleeding. Rediscussed goals of care with patient and patient's daughters in length today. Her daughters opined that it really is appropriate for patient to be on hospice. Redicussed goals of hospice and rediscussed recent imaging results with patient and family. Patient expressed she really wants to pursue chemotherapy offered by Dr. Perla at [place] even though there is only a small potential of it "possibly delaying the progression of metastatic disease" but not necessarily prolonging survival. She verbalizes she had tolerated her multiple chemotherapies before and is really determined to give it another try. Explained she could pursue this treatment as outpatient if we won't get a bed at [facility] today. Will recheck hemoglobin today. If she won't get a bed today at the receiving hospital, patient and daughters are amenable for her to be discharged tomorrow morning and they will schedule the chemo as outpatient. (2) Pneumonia Is this a current diagnosis for this admission?: Yes Plan: Completed antibiotic therapy. Sputum culture was negative. (3) UTI (urinary tract infection) Is this a current diagnosis for this admission?: Yes Plan: Urine culture grew Klebsiella and pseudomonas. Completed antibiotics. (4) COPD (chronic obstructive pulmonary disease) Is this a current diagnosis for this admission?: Yes Plan: Steroids discontinued. Currently not in exacerbation. Breathing treatments as needed. (5) Acute on chronic anemia Is this a current diagnosis for this admission?: Yes Plan: Hb dropped to 7.1 from 8.0. No clinical signs or symptoms of bleeding. Will recheck Hb later today. (6) Debility Is this a current diagnosis for this admission?: Yes Plan: She does have debility from her extensive metastatic lung CA. She is on home O2. She will be discharged with a wheelchair as she has mobility limitation that impairs her ability to perform ADLs. The use of a wheelchair will also help with her mobility at home and with her ADLs. Her fmaily is working on setting up ramps at home for easier access between rooms/spaces. She does want to use the wheelchair at home and will also have 24 hr caregivers. - Time Time Spent with patient: 35 or more minutes
[2018-08-24] MEDS: PANTOPRAZOLE SODIUM 40 MG TABLET.DR PO SCH (18:06)
[2018-08-25] MEDS: PANTOPRAZOLE SODIUM 40 MG TABLET.DR PO SCH (05:19)
[2018-08-25] MEDS: LEVALBUTEROL HCL NEB 0.63 MG/3 ML AMPUL NEB SCH (08:29)
[2018-08-25] MEDS: ISOSORBIDE MONONITRATE 60 MG TAB.ER.24H PO SCH (08:53)
[2018-08-25] MEDS: CYANOCOBALAMIN (VITAMIN B-12) 1,000 MCG TABLET PO SCH (08:53)
[2018-08-25] MEDS: ASPIRIN 81 MG TABLET, CHEWABLE PO SCH (08:53)
[2018-08-25] MEDS: POLYETHYLENE GLYCOL 3350 POWDER 17 GM/1 PACKET PO SCH (08:54)
[2018-08-25] MEDS: METOPROLOL TARTRATE 25 MG TABLET PO SCH (09:29)
[2018-08-25] MEDS: GUAIFENESIN 600 MG TABLET.SA PO SCH (09:31)
[2018-08-25] MEDS: TIOTROPIUM BROMIDE DPI 5 CAP/KIT (18 MCG/CAP) IH SCH (09:31)
[2018-08-25 12:42] VITALS: BP 124/50
--- NOTE | 2018-08-25 16:14 | PDOC DISCHARGE SUMMARY ---
General - Admit/Disc Date/PCP Admission Date/Primary Care Provider: 08/06/18 13:05 MEL GRULLON MD Discharge Date: 08/25/18 - Discharge Diagnosis (1) Stage IV small cell lung CA Is this a current diagnosis for this admission?: Yes (2) Pneumonia Is this a current diagnosis for this admission?: Yes (3) UTI (urinary tract infection) Is this a current diagnosis for this admission?: Yes (4) COPD (chronic obstructive pulmonary disease) Is this a current diagnosis for this admission?: Yes (5) Acute on chronic anemia Is this a current diagnosis for this admission?: Yes - Additional Information Resuscitation Status: Do Not Resuscitate Discharge Diet: Cardiac Discharge Activity: Activity As Tolerated, Balance Activity w/Rest, Weigh Daily Home Medications: Acetaminophen [Tylenol Extra Strength 500 mg Tablet] 1,000 mg PO Q8HP PRN 08/06/18 Albuterol Sulfate [Proair HFA Inhalation Aerosol 8.5 gm MDI] 2 puff IH Q4HP PRN 08/06/18 Aspirin [Aspirin 81 mg Chewable Tablet] 81 mg PO QAM 08/06/18 Cholecalciferol (Vitamin D3) [Vitamin D3 1000 Unit Tablet] 1,000 mg PO QAM 08/06/18 Cyanocobalamin (Vitamin B-12) [Vitamin B-12 1000 mcg Tablet] 1,000 mcg PO QAM 08/06/18 Docusate Sodium [Colace 100 mg Capsule] 100 mg PO HSP PRN 08/06/18 Furosemide [Lasix 40 mg Tablet] 40 mg PO QAM 08/06/18 Isosorbide Mononitrate [Imdur 60 mg Tablet.er] 60 mg PO QAM 08/06/18 Lansoprazole [Prevacid] 30 mg PO QAM@0630 08/06/18 Lisinopril [Zestril] 10 mg PO QAM 08/06/18 Metoprolol Tartrate [Lopressor 25 mg Tablet] 25 mg PO Q12 08/06/18 Polyethylene Glycol 3350 [Miralax Powder 17 gm/Packet] 17 gm PO QAM 08/06/18 Vit C/Vit E AC/Lut/Copper/Zinc [Preservision Lutein Softgel] 1 cap PO QAM 08/06/18 History of Present Illness History of Present Illness: Admitting hospitalist's H&P: DAVID HO is a 88 year old female with PMHx of breast cancer right mastectomy with 3 lymph nodes removed in 1996, history of lung cancer 2009 status post left upper lobe resection, other cancers 2017, CAD status post 1 stent placement, CHF ejection fraction 25%, current pleural effusion, who was recently hospitalized at [facility] for shortness of breath of several month and was found to have recurrent pleural effusion due to metastatic cancer she received PleurX placement in the right posterior lung and was subsequently discharged to [facility] for rehab week ago. Patient is stating she has been having worsening shortness of breath associated with productive cough for the last week. Her Pleurx still draining but she does not remember how much. She denies any chest pain, nausea, vomiting, diarrhea, constipation, or any urinary symptoms. In ED she was found to have SPO2 of 75% BNP 28,100 UA positive for nitrites and WBC of 10.6 with ANC of 9.0 up from WBC of 0.5, 5 days ago. CXR in ED showed appearance possible pneumonia. Start on Levaquin and steroids on hospital was consulted for admission. 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 She was started on antibiotics and steroids. She did have improvement but also expressed she wanted to be resumed on chemotherapy. Inhouse oncologist recommended hospice as patient was deemed not to benefit from further treatment or chemo with her extensive disease. Patient requested to be transferred to [place] to be managed by her oncologist, Dr. Perla who offered palliative chemo. Previous provider has discussed with patient's oncologist, Dr. Perla at [place] who has recommended transferring patient to their hospital to initiate inpatient palliative chemo. She has been accepted there apparently and is just awaiting bed placement. 08/24: Rediscussed goals of care in length with patient and patient's daughters in length today. Her daughters opined that it really is appropriate for patient to be on hospice. Redicussed goals of hospice and rediscussed recent imaging results with patient and family. Patient expressed she really wants to pursue chemotherapy offered by Dr. Perla at [place] even though there is only a small potential of it "possibly delaying the progression of metastatic disease" but not necessarily prolonging survival. She verbalizes she had tolerated her multiple chemotherapies before and is really determined to give it another try. Explained she could pursue this treatment as outpatient if we won't get a bed at [place] today. Will recheck hemoglobin today. If she won't get a bed today at the receiving hospital, patient and daughters are amenable for her to be discharged tomorrow morning and they will schedule the chemo as outpatient. 08/25: Patient will be discharged home. She is equivocal about proceeding with hospice and will think about this when she gets home vs pursuing outpatient palliative chemo with Dr. Perla at [place]. She has completed antibiotics for pneumonia and UTI and will not be further treated with antibiotics. She does have debility from her extensive metastatic lung CA. She is on home O2. Physical Exam Vital Signs: Temp Pulse Resp BP Pulse Ox 97.3 F 85 20 124/50 L 94 08/25/18 12:38 08/25/18 12:38 08/25/18 12:38 08/25/18 12:38 08/25/18 12:38 Intake & Output 08/24/18 08/25/18 08/26/18 06:59 06:59 06:59 Intake Total 1240 1200 Output Total 150 Balance 1090 1200 Weight 176 lb 12.972 oz 176 lb 12.972 oz General appearance: PRESENT: no acute distress, well-developed, well-nourished Head exam: PRESENT: atraumatic, normocephalic Eye exam: PRESENT: conjunctiva pink, EOMI, PERRLA. ABSENT: scleral icterus Ear exam: PRESENT: normal external ear exam Mouth exam: PRESENT: moist, tongue midline Neck exam: ABSENT: carotid bruit, JVD, lymphadenopathy, thyromegaly Respiratory exam: PRESENT: rhonchi. ABSENT: rales, wheezes Cardiovascular exam: PRESENT: RRR. ABSENT: diastolic murmur, rubs, systolic murmur Pulses: PRESENT: normal dorsalis pedis pul Vascular exam: PRESENT: normal capillary refill GI/Abdominal exam: PRESENT: normal bowel sounds, soft. ABSENT: distended, guard ing, mass, organolmegaly, rebound, tenderness Rectal exam: PRESENT: deferred Neurological exam: PRESENT: alert, awake, oriented to person, oriented to place, oriented to time, oriented to situation, CN II-XII grossly intact. ABSENT: motor sensory deficit Results Laboratory Results: 08/24/18 11:53 08/24/18 04:57 08/06/18 08/06/18 08/06/18 07:55 07:55 07:55 Creatine Kinase < 20 L CK-MB (CK-2) 0.77 Troponin I 0.092 NT-Pro-B Natriuret Pep 27917 H Impressions: Chest X-Ray 08/06/18 07:52 IMPRESSION: Asymmetric edema or pneumonia. PleurX catheter right lung. No pneumothorax. Abdomen/Pelvis CT 08/15/18 00:00 IMPRESSION: Nodular areas of pleural thickening/pleural based nodularity throughout the right hemithorax, concerning for malignancy. Posterior mediastinal as well as anterior superior mediastinal adenopathy is also noted. Soft tissue nodule in the posterior right lung base, having a solid appearance. Recommend tissue diagnosis. A small loculated right pleural effusion. Mild infrarenal abdominal aortic aneurysm. Cholelithiasis. Lobulated cystic structure in the left adnexa could reflect residual clot/postmenopausal cyst. Please refer to below recommendations for follow-up. AAA Size: Follow-up Recommendation (1): 2.6 - 2.9 cm Every 5 years (2) 3.0 - 3.4 cm Every 3 years 3.5 - 3.9 cm Every 12 months 4.0 - 4.4 cm Every 12 months, vasc consult rec 4.5 - 5.4 cm Every 6 months, vasc consult rec >=5.5 cm Referral to vascular surgeon recommended (1)Based upon the Society for Vascular Surgery Guidelines: J Vasc Surg. 2009 Mar;50(4 Suppl):S2-49 (2)For aortas of max richard of 2.6-2.9 cm that meet criteria for AAA (>= 1.5 x proximal normal segment). 2017 Fleischner Society Recommendations for Multiple Solid Lung Nodules Follow-Up base on size (average of long- and short-axis diameters). Use most suspicious nodule for followup. Nodule Size <6 mm Low-Risk Patient: No routine follow-up Nodule Size <6 mm High-Risk Patient: Optional CT at 12 months Nodule Size 6-8 mm Low-Risk Patient: CT at 3-[address] at 18-24 months Nodule Size 6-8 mm High-Risk Patient: CT at 3-6 months then at 18-24 months Nodule Size (mm) >8 Low-Risk Patient: CT at 3-6 months, then consider CT at 18-24 months Nodule Size (mm) >8 High-Risk Patient: CT at 3-6 months, then at 18-24 months . Recommendations for Probably benign adnexal cysts on CT and MR:(1)(2) (benign-appearing cysts on non IV-contrast CT or with one or more of the following complicating factors: angulated margins, not round or oval, poorly visualized such as obscured by artifact or low S/N.) Pre-menopause (<= 50 years if LMP unknown): <=3 cm: No follow-up imaging recommended >3 cm - <=5 cm: US f/u 6-12 weeks >5 cm - <=7 cm: US f/u promptly >7 cm: Consider MR w/IVC or surgical evaluation Early post-menopause (<=5 years from LMP; > 50 years to <= 55 years if LMP unknown): <=3 cm: No follow-up imaging recommended >3 cm - <=7 cm: US f/u promptly >7 cm: Consider MR w/IVC or surgical evaluation Late post-menopause (>5 years from LMP; > 55 years if LMP unknown): <=1 cm: No follow-up imaging recommended >1 cm - <=7 cm: US f/u promptly >7 cm: Consider MR w/IVC or surgical evaluation (1)Recommendations based on the 2013 ACR White Paper for Managing Incidental Adnexal Findings on Abdominal and Pelvic CT and MRI: J Am Jeff Radiol 2013;10:675-681 (2)Excludes normal/benign findings such as ovarian calcifications w/o associated non-calcified mass, corpus luteum cyst, previously characterized cyst and cyst with documented stability in size and appearance for >2 years. TECHNICAL DOCUMENTATION: Quality ID # [id number]: Final reports with documentation of one or more dose reduction techniques (e.g., Automated exposure control, adjustment of the mA and/or kV according to patient size, use of iterative reconstruction technique) copyright 2011 [employer]- All Rights Reserved Chest CT 08/15/18 00:00 IMPRESSION: Right pleural masses. Right pulmonary nodules. Right pleural effusion. Mediastinal masses. These findings are concerning for neoplasm. Recommend PET-CT. Qualifiers - * PATIENT BEING DISCHARGED WITH ANY OF THE FOLLOWING DIAGNOSIS: No
== END 2018-08-25 13:28 | disposition home health service (06) | DRG 194 ==
LOC: ER 07:30 → EH 13:05 → 4W 16:08
PROVIDERS: ADMIT Internal Medicine; ATTEND Internal Medicine
PROC: 3E0F3GC Introduction of Other Therapeutic Substance into Respiratory Tract, Percutaneous Approach (ICD-10-PCS; principal; 2018-08-06)
DX: J18.9 Pneumonia, unspecified organism (principal); J91.0 Malignant pleural effusion; C34.91 Malignant neoplasm of unspecified part of right bronchus or lung; N39.0 Urinary tract infection, site not specified; I50.22 Chronic systolic (congestive) heart failure; I11.0 Hypertensive heart disease with heart failure; J44.9 Chronic obstructive pulmonary disease, unspecified; D69.6 Thrombocytopenia, unspecified; Z99.81 Dependence on supplemental oxygen; B96.1 Klebsiella pneumoniae [K. pneumoniae] as the cause of diseases classified elsewhere; B96.5 Pseudomonas (aeruginosa) (mallei) (pseudomallei) as the cause of diseases classified elsewhere; D64.9 Anemia, unspecified; I44.7 Left bundle-branch block, unspecified; Y95 Nosocomial condition; I25.10 Atherosclerotic heart disease of native coronary artery without angina pectoris; M54.9 Dorsalgia, unspecified; D72.825 Bandemia; R53.81 Other malaise; Z66 Do not resuscitate; Z88.6 Allergy status to analgesic agent; Z88.0 Allergy status to penicillin; Z85.3 Personal history of malignant neoplasm of breast; Z85.51 Personal history of malignant neoplasm of bladder; Z90.11 Acquired absence of right breast and nipple; Z90.2 Acquired absence of lung [part of]; Z79.82 Long term (current) use of aspirin; Z95.5 Presence of coronary angioplasty implant and graft; Z87.891 Personal history of nicotine dependence
CPT/HCPCS: 36415; 71045; 71260; 74177; 80048; 80053; 80202; 81001; 82550; 82553; 82565; 82962; 83605; 83735; 83880; 84484; 85025; 85027; 87040; 87070; 87086; 87088; 87186; 87205; 87804; 87880; 93005; 93010; 94640; 99291; J1956; J2185; J2920; J2930; J3370; J3490; J7030; J7060; J7512; J7614; J7620